=== PATIENT | male | born 1960 | race Caucasian/White ===

== ENCOUNTER 2018-04-19 13:37 | Day surgery (SDC) | payer OTHER ==
[~2018-04-19] VITALS: Ht 190.5 cm; Wt 134.1 kg
[~2018-04-19 13:37] MED LIST: ASPI-999 PO; LEVO500T69 PO; MECL-106 PO; METO-387 PO; ONDA4TAB8 SL; PANT40TA2 PO; PANT40TA3 PO; PNT40TEC PO; PROM25TA14 PO
[2018-04-19] MEDS ORDERED: PANT40TA3 (13:50)
[2018-04-19] MEDS ORDERED: HYOSCYAMINE 0.125 MG (LEVSIN) TAB SL ONE (14:00)
[2018-04-19] MEDS ORDERED: GLUCAGON EMERGENCY 1 MG/KIT IV ONE (14:00)
[2018-04-19] MEDS ORDERED: ONDANSETRON 4 MG/2 ML (SDV) Z0FRAN IVP ONE (14:00)
--- OUTSIDE RECORDS SUMMARY | 2018-04-19 14:39 | XMS REPORT | Continuity of Care Document ---
Author Author [facility] Address Unknown Phone Unavailable Allergies Active Description Code Type Severity Reaction Onset Reported/Identified Relationship to Patient Clinical Status Yes NO KNOWN DRUG ALLERGIES UNKNOWN NO KNOWN DRUG ALLERG Yes No Known Drug Allergies [id number] Drug Allergy Unknown N/A 02/10/2010 Yes No Known Drug Allergies [id number] Drug Allergy Unknown N/A 04/07/2018 Medications Medication Packaging Start Date Stop Date Route Dosage Sig FAMOTIDINE VIAL INJ 20 MG/2CC (PEPCID VIAL) MG 12/14/2017 12/14/2017 ONCE&1913 ONDANSETRON VIAL INJ 4 MG/2CC (ZOFRAN 2CC VIAL) MG 12/14/2017 12/14/2017 ONCE&1913 LACTATED RINGERS 1000CC IV BAG INJ ml 12/14/2017 12/14/2017 ONCE&1913 PANTOPAZOLE VIAL INJ 40 MG (PROTONIX IV) MG 12/14/2017 12/14/2017 ONCE&1913 NORMAL SALINE 1000CC IV BAG INJ 0.9 % (NS 1000CC IV BAG) ml 12/14/2017 12/14/2017 ONCE&2055 INSULIN REGULAR HUMAN INJ 100 UNITS/CC (HUMULIN R / NOVOLIN R INSULIN) UNITS 12/14/2017 12/14/2017 ONCE&2101 POTASSIUM CHLORIDE TAB 20 MEQ (K-DUR) MEQ 12/14/2017 12/14/2017 ONCE&2118 NORMAL SALINE 1000CC IV BAG INJ 0.9 % (NS 1000CC IV BAG) ml 12/14/2017 12/14/2017 ONCE&2159 Problems Date Dx Coded Attending Type Code Diagnosis Diagnosed By 12/22/2009 Ot 530.10 ESOPHAGITIS NOS 12/22/2009 Ot 530.81 ESOPHAGEAL REFLUX 02/15/2010 Ot 603.9 03/27/2011 Ot 305.1 TOBACCO USE DISORDER 03/27/2011 Ot 397.0 TRICUSPID VALVE DISEASE 03/27/2011 Ot 424.0 MITRAL VALVE DISORDER 03/27/2011 Ot 426.4 RT BUNDLE BRANCH BLOCK 03/27/2011 Ot 429.3 CARDIOMEGALY 03/27/2011 Ot 780.4 DIZZINESS AND GIDDINESS 03/27/2011 Ot 780.57 UNSPECIFIED SLEEP APNEA 03/27/2011 Ot 780.79 OTH MALAISE FATIGUE 03/27/2011 Ot 786.09 RESPIRATORY ABNORM NEC 03/27/2011 Ot V15.81 HX OF PAST NONCOMPLIANCE 03/27/2011 Ot V44.2 ILEOSTOMY STATUS 03/27/2011 Ot V58.66 LONG-TERM ( CURRENT) USE OF ASPIRIN 07/30/2014 Ot 603.9 07/30/2014 Ot 603.9 07/30/2014 Ot V72.63 07/30/2014 Ot V74.8 07/30/2014 Ot 780.79 07/30/2014 Ot 786.2 07/30/2014 Ot 780.79 07/30/2014 Ot 786.09 08/18/2014 YUMI LARSON, CHAYA Pulido Ot 600.00 08/18/2014 YUMI LARSON, CHAYA Pulido Ot 607.84 08/26/2014 Ot 603.9 08/26/2014 Ot 603.9 08/26/2014 Ot V72.63 08/26/2014 Ot V74.8 08/26/2014 Ot 780.79 08/26/2014 Ot 786.2 08/26/2014 Ot 780.79 08/26/2014 Ot 786.09 08/26/2014 YUMI LARSON, CHAYA Pulido Ot 600.00 08/26/2014 YUMI LARSON, CHAYA Pulido Ot 607.84 09/29/2014 DEVYN LEMUS L 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 Ot 305.1 09/29/2014 BAIMADEVYN L 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 Ot 426.4 09/29/2014 BAIMA DEVYN L 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 Ot 780.57 09/29/2014 DEVYN LEMUS L 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 Ot 785.1 10/07/2014 TALYA LARSON, KRISTAL Chavez Ot 785.1 10/07/2014 TALYA LARSON, KRISTAL Chavez Ot 785.2 10/07/2014 KRISTAL BABIN MD Ot 786.50 12/04/2014 KELSIE DILL MD Ot 892.0 OPEN WOUND OF FOOT 12/04/2014 KELSIE DILL MD Ot E000.8 OTHER EXTERNAL CAUSE STATUS 12/04/2014 FUENTES LARSON, KELSIE Enamorado Ot E849.0 ACCIDENT IN HOME 12/04/2014 FUENTES LARSON, KELSIE Enamorado Ot E920.8 ACC-CUTTING INSTRUM NEC 12/04/2014 FUENTES LARSON, KELSIE Enamorado Ot V06.1 [id number], COMBINED [ 08/04/2015 Ot 780.79 08/04/2015 Ot 786.2 08/04/2015 Ot 780.79 08/04/2015 Ot 786.09 08/04/2015 YUMI LARSON, CHAYA Pulido Ot 600.00 08/04/2015 YUMI LARSON, CHAYA Pulido Ot 607.84 08/04/2015 TALYA LARSON, KRISTAL L Ot 785.1 08/04/2015 TALYA LARSON, KRISTAL L Ot 785.2 08/04/2015 TALYA LARSON, KRISTAL L Ot 786.50 08/04/2015 BAIMA, DEVYN L 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 Ot 305.1 08/04/2015 BAIMA DEVYN L 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 Ot 426.4 08/04/2015 BAIMA DEVYN L 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 Ot 780.57 08/04/2015 BAIINA DEVYN L 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 Ot 785.1 08/18/2015 CHAYA EASON MD Ot N40.0 08/18/2015 CHAYA EASON MD Ot N52.9 11/08/2015 Ot 780.79 11/08/2015 Ot 786.2 11/08/2015 Ot 780.79 11/08/2015 Ot 786.09 11/08/2015 YUMI LARSON, CHAYA Pulido Ot 600.00 11/08/2015 CHAYA EASON MD Ot 607.84 11/08/2015 TALYA LARSON, KRISTAL L Ot 785.1 11/08/2015 TALYA LARSON, KRISTAL L Ot 785.2 11/08/2015 TALYA LARSON, KRISTAL L Ot 786.50 11/08/2015 MARIAH DEVYN L 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 Ot 305.1 11/08/2015 MARIAH DEVYN L 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 Ot 426.4 11/08/2015 BAIMA, DEVYN L 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 Ot 780.57 11/08/2015 MARIAH DEVYN L 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 Ot 785.1 11/08/2015 CHAYA EASON MD Ot N40.0 11/08/2015 YUMI LARSON, CHAYA Tess Ot N52.9 11/23/2015 BAIMA, DEVYN L 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 Ot G47.33 11/23/2015 BAIMA, DEVYN L 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 Ot I45.19 11/23/2015 BAIMA, DEVYN L 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 Ot R00.2 11/23/2015 BAIMA, DEVYN L 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 Ot R06.09 11/23/2015 BAIMA, DEVYN L 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 Ot R07.9 11/23/2015 BAIMA, DEVYN L 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 Ot Z72.0 11/24/2015 Ot 780.79 11/24/2015 Ot 786.2 11/24/2015 Ot 780.79 11/24/2015 Ot 786.09 11/24/2015 YUMI LARSON, CHAYA Tess Ot 600.00 11/24/2015 YUMI LARSON, CHAYA Tess Ot 607.84 11/24/2015 TALYA LARSON, KRISTAL L Ot 785.1 11/24/2015 TALYA LARSON, KRISTAL L Ot 785.2 11/24/2015 TALYA LARSON, KRISTAL L Ot 786.50 11/24/2015 BAIMA, DEVYN L 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 Ot 305.1 11/24/2015 BAIMA, DEVYN L 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 Ot 426.4 11/24/2015 BAIMA, DEVYN L 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 Ot 780.57 11/24/2015 BAIMA, DEVYN L 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 Ot 785.1 11/24/2015 YUMI LARSON, CHAYA Pulido Ot N40.0 11/24/2015 YUMI LARSON, CHAYA A Ot N52.9 11/24/2015 BAIMA, DEVYN L 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 Ot G47.33 11/24/2015 BAIMA, DEVYN L 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 Ot I45.19 11/24/2015 BAIMA, DEVYN L 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 Ot R00.2 11/24/2015 BAIMA, DEVYN L 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 Ot R06.09 11/24/2015 BAIMA, DEVYN L 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 Ot R07.9 11/24/2015 BAIMA, DEVYN L 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 Ot Z72.0 11/25/2015 BAIMA, DEVYN L 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 Ot G47.33 11/25/2015 BAIMA, DEVYN L 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 Ot I45.19 11/25/2015 BAIMA, DEVYN L 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 Ot R00.2 11/25/2015 BAIMA, DEVYN L 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 Ot R06.09 11/25/2015 BAIMA, DEVYN L 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 Ot R07.9 11/25/2015 BAIMA, DEVYN L 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 Ot Z72.0 12/07/2015 BAIMA, DEVYN L 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 Ot G47.33 OBSTRUCTIVE SLEEP APNEA (ADULT) (PEDIATR 12/07/2015 BAIMA, DEVYN L 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 Ot I45.19 OTHER RIGHT BUNDLE-BRANCH BLOCK 12/07/2015 BAIMA, DEVYN L 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 Ot R00.2 PALPITATIONS 12/07/2015 BAIMA, DEVYN L 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 Ot R06.09 OTHER FORMS OF DYSPNEA 12/07/2015 BAIMA, DEVYN L 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 Ot R07.9 CHEST PAIN, UNSPECIFIED 12/07/2015 BAIMA, DEVYN L 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 Ot Z72.0 TOBACCO USE 12/30/2015 Ot 780.79 OTH MALAISE FATIGUE 12/30/2015 Ot 786.2 COUGH 12/30/2015 Ot 780.79 OTH MALAISE FATIGUE 12/30/2015 Ot 786.09 RESPIRATORY ABNORM NEC 12/30/2015 YUMI LARSON, CHAYA Pulido Ot 600.00 HYPERTROPHY (BENIGN) OF PROSTATE W/O URI 12/30/2015 CHAYA EASON MD Ot 607.84 IMPOTENCE, ORGANIC ORIGN 12/30/2015 TALYA LARSON, KRISTAL Chavez Ot 785.1 PALPITATIONS 12/30/2015 TALYA LARSON, KRISTAL Chavez Ot 785.2 CARDIAC MURMURS NEC 12/30/2015 TALYA LARSON, KRISTAL Chavez Ot 786.50 CHEST PAIN NOS 12/30/2015 MARIAH, DEVYN L 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 Ot 305.1 TOBACCO USE DISORDER 12/30/2015 BAIMA, DEVYN L 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 Ot 426.4 RT BUNDLE BRANCH BLOCK 12/30/2015 ORALIAMA, DEVYN L 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 Ot 780.57 UNSPECIFIED SLEEP APNEA 12/30/2015 BAIMA, DEVYN L 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 Ot 785.1 PALPITATIONS 12/30/2015 CHAYA EASON MD Ot N40.0 ENLARGED PROSTATE WITHOUT LOWER URINARY 12/30/2015 CHAYA EASON MD Ot N52.9 MALE ERECTILE DYSFUNCTION, UNSPECIFIED 12/30/2015 BAIMA, DEVYN L 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 Ot G47.33 OBSTRUCTIVE SLEEP APNEA (ADULT) (PEDIATR 12/30/2015 BAIMA, DEVYN L 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 Ot I45.19 OTHER RIGHT BUNDLE-BRANCH BLOCK 12/30/2015 BAIMA, DEVYN L 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 Ot R00.2 PALPITATIONS 12/30/2015 BAIMA, DEVYN L 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 Ot R06.09 OTHER FORMS OF DYSPNEA 12/30/2015 BAIMA, DEVYN L 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 Ot R07.9 CHEST PAIN, UNSPECIFIED 12/30/2015 BAIMA, DEVYN L 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 Ot Z72.0 TOBACCO USE 12/30/2015 BAIMA, DEVYN L 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 Ot G47.33 OBSTRUCTIVE SLEEP APNEA (ADULT) (PEDIATR 12/30/2015 BAIMA, DEVYN L 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 Ot I45.19 OTHER RIGHT BUNDLE-BRANCH BLOCK 12/30/2015 BAIMA, DEVYN L 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 Ot R00.2 PALPITATIONS 12/30/2015 BAIMA, DEVYN L 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 Ot R06.09 OTHER FORMS OF DYSPNEA 12/30/2015 BAIMA, DEVYN L 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 Ot R07.9 CHEST PAIN, UNSPECIFIED 12/30/2015 BAIMA, DEVYN L 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 Ot Z72.0 TOBACCO USE 12/30/2015 MYRON LARSON, HALEIGH T Ot F17.210 NICOTINE DEPENDENCE, CIGARETTES, UNCOMPL 12/30/2015 HALEIGH SANCHES MD Ot R11.2 NAUSEA WITH VOMITING, UNSPECIFIED 12/30/2015 HALEIGH SANCHES MD T Ot R42 DIZZINESS AND GIDDINESS 12/30/2015 HALEIGH SANCHES MD T Ot R74.8 ABNORMAL LEVELS OF OTHER SERUM ENZYMES 12/30/2015 HALEIGH SANCHES MD Ot F17.210 NICOTINE DEPENDENCE, CIGARETTES, UNCOMPL 12/30/2015 HALEIGH SANCHES MD T Ot R11.2 NAUSEA WITH VOMITING, UNSPECIFIED 12/30/2015 HALEIGH SANCHES MD T Ot R42 DIZZINESS AND GIDDINESS 12/30/2015 HALEIGH SANCHES MD T Ot R74.8 ABNORMAL LEVELS OF OTHER SERUM ENZYMES 01/06/2016 KELSIE DILL MD Ot R11.0 NAUSEA 01/06/2016 FUENTES LARSON, KELSIE Enamorado Ot R42 DIZZINESS AND GIDDINESS 01/10/2016 KELSIE DILL MD Ot R11.0 NAUSEA 01/10/2016 KELSIE DILL MD Ot R42 DIZZINESS AND GIDDINESS 01/26/2016 MYRON LARSON, HALEIGH Vicente Ot F17.210 NICOTINE DEPENDENCE, CIGARETTES, UNCOMPL 01/26/2016 HALEIGH SANCHES MD Ot R11.2 NAUSEA WITH VOMITING, UNSPECIFIED 01/26/2016 HALEIGH SANCHES MD Ot R42 DIZZINESS AND GIDDINESS 01/26/2016 MYRON LARSON, HALEIGH Vicente Ot R74.8 ABNORMAL LEVELS OF OTHER SERUM ENZYMES 01/27/2016 KELSIE DILL MD Ot R11.0 NAUSEA 01/27/2016 KELSIE DILL MD, Ot R42 DIZZINESS AND GIDDINESS 02/01/2016 MICHEL GALEANA SLAB WORKER Ot G47.33 OBSTRUCTIVE SLEEP APNEA (ADULT) (PEDIATR 02/07/2016 MICHEL GALEANA SLAB WORKER Ot G47.33 OBSTRUCTIVE SLEEP APNEA (ADULT) (PEDIATR 02/07/2016 MICHEL GALEANA SLAB WORKER Ot G47.33 OBSTRUCTIVE SLEEP APNEA (ADULT) (PEDIATR 10/01/2016 AZUL LARSON FACC, JAVIER FACP CCDS Ot G47.33 OBSTRUCTIVE SLEEP APNEA (ADULT) (PEDIATR 10/01/2016 AZUL LARSON FACC, JAVIER FACP CCDS Ot R01.2 OTHER CARDIAC SOUNDS 10/01/2016 AZUL LARSON FACC, JAVIER FACP CCDS Ot R06.09 OTHER FORMS OF DYSPNEA 10/01/2016 AZUL LARSON FACC, ALI FACP CCDS Ot Z72.0 TOBACCO USE 10/10/2016 MICHEL GALEANA SLAB WORKER Ot R50.9 FEVER, UNSPECIFIED 10/10/2016 MICHEL GALEANA SLAB WORKER Ot Z72.0 TOBACCO USE 10/17/2016 AZUL LARSON FACC, JVAIER FACP CCDS Ot G47.33 OBSTRUCTIVE SLEEP APNEA (ADULT) (PEDIATR 10/17/2016 AZUL LARSON FACC, ALI FACP CCDS Ot R01.2 OTHER CARDIAC SOUNDS 10/17/2016 AZUL LARSON FACC, ALI FACP CCDS Ot R06.09 OTHER FORMS OF DYSPNEA 10/17/2016 AZUL LARSON FAC, JAVIER SANTAMARIAP CCDS Ot Z72.0 TOBACCO USE 10/24/2016 MICHLE GALEANA SLAB WORKER Ot R50.9 FEVER, UNSPECIFIED 10/24/2016 MICHEL GALEANA SLAB WORKER Ot Z72.0 TOBACCO USE 01/19/2017 Vida Christopher 729.5 PAIN IN LIMB 01/19/2017 Vida Christopher M79.672 PAIN IN LEFT FOOT 11/26/2017 MICHEL GALEANA APRN Ot J30.9 ALLERGIC RHINITIS, UNSPECIFIED 11/26/2017 MICHEL GALEANA APRN Ot R05 COUGH 11/26/2017 MICHEL GALEANA SLAB WORKER Ot R06.09 OTHER FORMS OF DYSPNEA 12/12/2017 KRISTAL BABIN V70.0 ROUTINE GENERAL MEDICAL EXAMINATION AT A HEALTH CARE FACILITY 12/12/2017 KRISTAL BBAIN Z00.01 ENCOUNTER FOR GENERAL ADULT MEDICAL EXAMINATION WITH ABNORMAL FINDINGS 12/12/2017 KRISTAL BABIN 250.00 DIABETES MELLITUS WITHOUT MENTION OF COMPLICATION, TYPE II OR UNSPECIFIED TYPE , NOT STATED UNCONTROLLED 12/12/2017 KRISTAL BABIN E11.9 TYPE 2 DIABETES MELLITUS WITHOUT COMPLICATIONS 12/12/2017 KRISTAL BABIN V70.0 ROUTINE GENERAL MEDICAL EXAMINATION AT A HEALTH CARE FACILITY 12/12/2017 KRISTAL BABIN Z00.01 ENCOUNTER FOR GENERAL ADULT MEDICAL EXAMINATION WITH ABNORMAL FINDINGS 12/12/2017 KRISTAL BABIN 250.00 DIABETES MELLITUS WITHOUT MENTION OF COMPLICATION, TYPE II OR UNSPECIFIED TYPE , NOT STATED UNCONTROLLED 12/12/2017 KRISTAL BABIN E11.9 TYPE 2 DIABETES MELLITUS WITHOUT COMPLICATIONS 12/12/2017 KRISTAL BABIN V70.0 ROUTINE GENERAL MEDICAL EXAMINATION AT A HEALTH CARE FACILITY 12/12/2017 KRISTAL BABIN Z00.01 ENCOUNTER FOR GENERAL ADULT MEDICAL EXAMINATION WITH ABNORMAL FINDINGS 12/14/2017 Van Richard 276.51 12/14/2017 Van Richard 530.81 ESOPHAGEAL REFLUX 12/14/2017 Van Richard 584.9 ACUTE KIDNEY FAILURE, UNSPECIFIED 12/14/2017 Van Richard 787.01 NAUSEA WITH VOMITING 12/14/2017 Van Richard 794.30 NONSPECIFIC ABNORMAL FUNCTION STUDY, CARDIOVASCULAR, UNSPECIFIED 12/14/2017 Van Richard A E86.0 DEHYDRATION 12/14/2017 Van Richard K21.9 GASTRO-ESOPHAGEAL REFLUX DISEASE WITHOUT ESOPHAGITIS 12/14/2017 Van Richard N17.9 ACUTE KIDNEY FAILURE, UNSPECIFIED 12/14/2017 Van Richard R11.2 NAUSEA WITH VOMITING, UNSPECIFIED 12/14/2017 Van Richard R94.39 ABNORMAL RESULT OF OTHER CARDIOVASCULAR FUNCTION STUDY 12/17/2017 MARIA M RAMEY MD Ot E05.90 THYROTOXICOSIS, UNSP WITHOUT THYROTOXIC 12/17/2017 MARIA M RAMEY MD Ot E11.9 TYPE 2 DIABETES MELLITUS WITHOUT COMPLIC 12/17/2017 MARIA M RAMEY MD, Ot E55.9 VITAMIN D DEFICIENCY, UNSPECIFIED 12/17/2017 AMRIA M RAMEY MD, Ot E66.9 OBESITY, UNSPECIFIED 12/17/2017 MARIA M RAMEY MD Ot E86.0 DEHYDRATION 12/17/2017 MARIA M RAMEY MD Ot E87.2 ACIDOSIS 12/17/2017 MARIA M RAMEY MD Ot F17.210 NICOTINE DEPENDENCE, CIGARETTES, UNCOMPL 12/17/2017 MARIA M RAMEY MD Ot F17.290 NICOTINE DEPENDENCE, OTHER TOBACCO PRODU 12/17/2017 MARIA M RAMEY MD Ot G47.30 SLEEP APNEA, UNSPECIFIED 12/17/2017 MARIA M RAMEY MD Ot I25.10 ATHSCL HEART DISEASE OF [place] CORONARY 12/17/2017 MARIA M RAMEY MD Ot I45.10 UNSPECIFIED RIGHT BUNDLE-BRANCH BLOCK 12/17/2017 MARIA M RAMEY MD Ot I65.23 OCCLUSION AND STENOSIS OF BILATERAL ARCHER 12/17/2017 MARIA M RAMEY MD, Ot K21.9 GASTRO-ESOPHAGEAL REFLUX DISEASE WITHOUT 12/17/2017 MARIA M RAMEY MD Ot K50.90 CROHN'S DISEASE, UNSPECIFIED, WITHOUT CO 12/17/2017 MARIA M RAMEY MD, Ot K52.9 NONINFECTIVE GASTROENTERITIS AND COLITIS 12/17/2017 MARIA M RAMEY MD, Ot N17.9 ACUTE KIDNEY FAILURE, UNSPECIFIED 12/17/2017 MARIA M RAMEY MD, Ot R01.1 CARDIAC MURMUR, UNSPECIFIED 12/17/2017 MARIA M RAMEY MD Ot Z68.35 BODY MASS INDEX (BMI) 35.0-35.9, ADULT 12/20/2017 MARIA M RAMEY MD Ot E05.90 THYROTOXICOSIS, UNSP WITHOUT THYROTOXIC 12/20/2017 MARIA M RAMEY MD Ot E11.9 TYPE 2 DIABETES MELLITUS WITHOUT COMPLIC 12/20/2017 MARIA M RAMEY MD Ot E55.9 VITAMIN D DEFICIENCY, UNSPECIFIED 12/20/2017 MARIA M RAMEY MD Ot E66.9 OBESITY, UNSPECIFIED 12/20/2017 MARIA M RAMEY MD Ot E86.0 DEHYDRATION 12/20/2017 MARIA M RAMEY MD Ot E87.2 ACIDOSIS 12/20/2017 MARIA M RAMEY MD Ot F17.210 NICOTINE DEPENDENCE, CIGARETTES, UNCOMPL 12/20/2017 MARIA M RAMEY MD Ot F17.290 NICOTINE DEPENDENCE, OTHER TOBACCO PRODU 12/20/2017 MARIA M RAMEY MD Ot G47.30 SLEEP APNEA, UNSPECIFIED 12/20/2017 MARIA M RAMEY MD Ot I25.10 ATHSCL HEART DISEASE OF [place] CORONARY 12/20/2017 MARIA M RAMEY MD Ot I45.10 UNSPECIFIED RIGHT BUNDLE-BRANCH BLOCK 12/20/2017 MARIA M RAMEY MD Ot I65.23 OCCLUSION AND STENOSIS OF BILATERAL ARCH[place] 12/20/2017 MARIA M RAMEY MD Ot K21.9 GASTRO-ESOPHAGEAL REFLUX DISEASE WITHOUT 12/20/2017 MARIA M RAMEY MD Ot K50.90 CROHN'S DISEASE, UNSPECIFIED, WITHOUT CO 12/20/2017 MARIA M RAMEY MD Ot K52.9 NONINFECTIVE GASTROENTERITIS AND COLITIS 12/20/2017 MARIA M RAMEY MD Ot N17.9 ACUTE KIDNEY FAILURE, UNSPECIFIED 12/20/2017 MARIA M RAMEY MD Ot R01.1 CARDIAC MURMUR, UNSPECIFIED 12/20/2017 MARIA M RAMEY MD Ot Z68.35 BODY MASS INDEX (BMI) 35.0-35.9, ADULT 12/20/2017 SANDNESS MD, MARIA M M Ot E05.90 THYROTOXICOSIS, UNSP WITHOUT THYROTOXIC 12/20/2017 MARIA M RAMYE MD Ot E11.9 TYPE 2 DIABETES MELLITUS WITHOUT COMPLIC 12/20/2017 MARIA M RAMEY MD Ot E55.9 VITAMIN D DEFICIENCY, UNSPECIFIED 12/20/2017 MARIA M RAMEY MD Ot E66.9 OBESITY, UNSPECIFIED 12/20/2017 MARIA M RAMEY MD Ot E86.0 DEHYDRATION 12/20/2017 MARIA M RAMEY MD Ot E87.2 ACIDOSIS 12/20/2017 MARIA M RAMEY MD Ot F17.210 NICOTINE DEPENDENCE, CIGARETTES, UNCOMPL 12/20/2017 MARIA M RAMEY MD Ot F17.290 NICOTINE DEPENDENCE, OTHER TOBACCO PRODU 12/20/2017 MARIA M RAMEY MD Ot G47.30 SLEEP APNEA, UNSPECIFIED 12/20/2017 MARIA M RAMEY MD Ot I25.10 ATHSCL HEART DISEASE OF [place] CORONARY 12/20/2017 MARIA M RAMEY MD Ot I45.10 UNSPECIFIED RIGHT BUNDLE-BRANCH BLOCK 12/20/2017 MARIA M RAMEY MD Ot I65.23 OCCLUSION AND STENOSIS OF BILATERAL ARCH[place] 12/20/2017 MARIA M RAMEY MD Ot K21.9 GASTRO-ESOPHAGEAL REFLUX DISEASE WITHOUT 12/20/2017 MARIA M RAMEY MD Ot K50.90 CROHN'S DISEASE, UNSPECIFIED, WITHOUT CO 12/20/2017 MARIA M RAMEY MD Ot K52.9 NONINFECTIVE GASTROENTERITIS AND COLITIS 12/20/2017 MARIA M RAMEY MD Ot N17.9 ACUTE KIDNEY FAILURE, UNSPECIFIED 12/20/2017 MARIA M RAMEY MD Ot R01.1 CARDIAC MURMUR, UNSPECIFIED 12/20/2017 MARIA M RAMEY MD Ot Z68.35 BODY MASS INDEX (BMI) 35.0-35.9, ADULT 12/23/2017 MARIA M RAMEY MD Ot E05.90 THYROTOXICOSIS, UNSP WITHOUT THYROTOXIC 12/23/2017 MARIA M RAMEY MD Ot E11.9 TYPE 2 DIABETES MELLITUS WITHOUT COMPLIC 12/23/2017 MARIA M RAMEY MD Ot E55.9 VITAMIN D DEFICIENCY, UNSPECIFIED 12/23/2017 MARIA M RAMEY MD Ot E66.9 OBESITY, UNSPECIFIED 12/23/2017 MARIA M RAMEY MD Ot E86.0 DEHYDRATION 12/23/2017 MARIA M RAMEY MD Ot E87.2 ACIDOSIS 12/23/2017 MARIA M RAMEY MD Ot F17.210 NICOTINE DEPENDENCE, CIGARETTES, UNCOMPL 12/23/2017 MARIA M RAMEY MD, Ot F17.290 NICOTINE DEPENDENCE, OTHER TOBACCO PRODU 12/23/2017 MARIA M RAMEY MD, Ot G47.30 SLEEP APNEA, UNSPECIFIED 12/23/2017 MARIA M RAMEY MD, Ot I25.10 ATHSCL HEART DISEASE OF [place] CORONARY 12/23/2017 MARIA M RAMEY MD Ot I45.10 UNSPECIFIED RIGHT BUNDLE-BRANCH BLOCK 12/23/2017 MARIA M RAMEY MD Ot I65.23 OCCLUSION AND STENOSIS OF BILATERAL [place]CH[place] 12/23/2017 MARIA M RAMEY MD Ot K21.9 GASTRO-ESOPHAGEAL REFLUX DISEASE WITHOUT 12/23/2017 MARIA M RAMEY MD Ot K50.90 CROHN'S DISEASE, UNSPECIFIED, WITHOUT CO 12/23/2017 MARIA M RAMEY MD, Ot K52.9 NONINFECTIVE GASTROENTERITIS AND COLITIS 12/23/2017 MARIA M RAMEY MD, Ot N17.9 ACUTE KIDNEY FAILURE, UNSPECIFIED 12/23/2017 MARIA M RAMEY MD Ot R01.1 CARDIAC MURMUR, UNSPECIFIED 12/23/2017 MARIA M RAMEY MD Ot Z68.35 BODY MASS INDEX (BMI) 35.0-35.9, ADULT 12/24/2017 KRISTAL BABIN 584.9 ACUTE KIDNEY FAILURE, UNSPECIFIED 12/24/2017 KRISTAL BABIN N17.9 ACUTE KIDNEY FAILURE, UNSPECIFIED 12/24/2017 KRISTAL BABIN 584.9 ACUTE KIDNEY FAILURE, UNSPECIFIED 12/24/2017 KRISTAL BABIN N17.9 ACUTE KIDNEY FAILURE, UNSPECIFIED 12/24/2017 KRISTAL BABIN 584.9 ACUTE KIDNEY FAILURE, UNSPECIFIED 12/24/2017 KRISTAL BABIN N17.9 ACUTE KIDNEY FAILURE, UNSPECIFIED 12/25/2017 MARIA M RAMEY MD Ot E05.90 THYROTOXICOSIS, UNSP WITHOUT THYROTOXIC 12/25/2017 MARIA M RAMEY MD Ot E11.9 TYPE 2 DIABETES MELLITUS WITHOUT COMPLIC 12/25/2017 MARIA M RAMEY MD Ot E55.9 VITAMIN D DEFICIENCY, UNSPECIFIED 12/25/2017 MARIA M RAMEY MD Ot E66.9 OBESITY, UNSPECIFIED 12/25/2017 MARIA M RAMEY MD Ot E86.0 DEHYDRATION 12/25/2017 MARIA M RAMEY MD Ot E87.2 ACIDOSIS 12/25/2017 MARIA M RAMEY MD Ot F17.210 NICOTINE DEPENDENCE, CIGARETTES, UNCOMPL 12/25/2017 MARIA M RAMEY MD Ot F17.290 NICOTINE DEPENDENCE, OTHER TOBACCO PRODU 12/25/2017 MARIA M RAMEY MD Ot G47.30 SLEEP APNEA, UNSPECIFIED 12/25/2017 MARIA M RAMEY MD Ot I25.10 ATHSCL HEART DISEASE OF [place] CORONARY 12/25/2017 MARIA M RAMEY MD Ot I45.10 UNSPECIFIED RIGHT BUNDLE-BRANCH BLOCK 12/25/2017 MARIA M RAMEY MD Ot I65.23 OCCLUSION AND STENOSIS OF BILATERAL [place] 12/25/2017 MARIA M RAMEY MD Ot K21.9 GASTRO-ESOPHAGEAL REFLUX DISEASE WITHOUT 12/25/2017 MARIA M RAMEY MD Ot K50.90 CROHN'S DISEASE, UNSPECIFIED, WITHOUT CO 12/25/2017 MARIA M RAMEY MD Ot K52.9 NONINFECTIVE GASTROENTERITIS AND COLITIS 12/25/2017 MARIA M RAMEY MD Ot N17.9 ACUTE KIDNEY FAILURE, UNSPECIFIED 12/25/2017 MARIA M RAMEY MD Ot R01.1 CARDIAC MURMUR, UNSPECIFIED 12/25/2017 MARIA M RAMEY MD Ot Z68.35 BODY MASS INDEX (BMI) 35.0-35.9, ADULT 04/07/2018 CHAYA EASON MD Ot 600.00 HYPERTROPHY (BENIGN) OF PROSTATE W/O URI 04/07/2018 CHAYA EASON MD Ot 607.84 IMPOTENCE, ORGANIC ORIGN 04/07/2018 TALYA LARSON, KRISTAL L Ot 785.1 PALPITATIONS 04/07/2018 TALYA LARSON, KRISTAL L Ot 785.2 CARDIAC MURMURS NEC 04/07/2018 TALYA LARSON, KRISTAL L Ot 786.50 CHEST PAIN NOS 04/07/2018 BAIMA, DEVYN L 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 Ot 305.1 TOBACCO USE DISORDER 04/07/2018 BAIMA, DEVYN L 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 Ot 426.4 RT BUNDLE BRANCH BLOCK 04/07/2018 BAIMA, DEVYN L 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 Ot 780.57 UNSPECIFIED SLEEP APNEA 04/07/2018 BAIMA, DEVYN L 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 Ot 785.1 PALPITATIONS 04/07/2018 YUMI LARSON, CHAYA Pulido Ot N40.0 ENLARGED PROSTATE WITHOUT LOWER URINARY 04/07/2018 YUMI LARSON, CHAYA A Ot N52.9 MALE ERECTILE DYSFUNCTION, UNSPECIFIED 04/07/2018 BAIMA, DEVYN L 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 Ot G47.33 OBSTRUCTIVE SLEEP APNEA (ADULT) (PEDIATR 04/07/2018 BAIMA, DEVYN L 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 Ot I45.19 OTHER RIGHT BUNDLE-BRANCH BLOCK 04/07/2018 BAIMA, DEVYN L 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 Ot R00.2 PALPITATIONS 04/07/2018 BAIMA, DEVYN L 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 Ot R06.09 OTHER FORMS OF DYSPNEA 04/07/2018 BAIMA, DEVYN L 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 Ot R07.9 CHEST PAIN, UNSPECIFIED 04/07/2018 BAIMA, DEVYN L 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 Ot Z72.0 TOBACCO USE 04/07/2018 BAIMA, DEVYN L 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 Ot G47.33 OBSTRUCTIVE SLEEP APNEA (ADULT) (PEDIATR 04/07/2018 BAIMA, DEVYN L 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 Ot I45.19 OTHER RIGHT BUNDLE-BRANCH BLOCK 04/07/2018 BAIMA, DEVYN L 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 Ot R00.2 PALPITATIONS 04/07/2018 BAIMA, DEVYN L 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 Ot R06.09 OTHER FORMS OF DYSPNEA 04/07/2018 BAIMA, DEVYN L 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 Ot R07.9 CHEST PAIN, UNSPECIFIED 04/07/2018 BAIMA, DEVYN L 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 Ot Z72.0 TOBACCO USE 04/07/2018 AZUL LARSON FACC, ALI FACP CCDS Ot G47.33 OBSTRUCTIVE SLEEP APNEA (ADULT) (PEDIATR 04/07/2018 AZUL LARSON FACC, ALI FACP CCDS Ot R01.2 OTHER CARDIAC SOUNDS 04/07/2018 AZUL LARSON [facility] CCDS Ot R06.09 OTHER FORMS OF DYSPNEA 04/07/2018 AZUL LARSON FAC, [facility] CCDS Ot Z72.0 TOBACCO USE 04/07/2018 MICHEL GALEANA Axel [employer] WORKER Ot R50.9 FEVER, UNSPECIFIED 04/07/2018 LISSETTMAGALIS OLSONINE E SL[employer] WORKER Ot Z72.0 TOBACCO USE 04/07/2018 MICHEL GALEANA [employer] WORKER Ot J30.9 ALLERGIC RHINITIS, UNSPECIFIED 04/07/2018 MAGALIS GALEANAINE E [employer] WORKER Ot R05 COUGH 04/07/2018 MICHEL GALEANA [employer] WORKER Ot R06.09 OTHER FORMS OF DYSPNEA Procedures There is no data. Results Test Result Range Lipid Panel - 12/06/16 10:45 C/HDL 2.6 3.7-6.7 Cholesterol 129 mg/dL 100-240 HDL 50 mg/dL 30-85 LDL-Calculated 47 mg/dL 0-100 Trig 158 mg/dL 35-160 VLDL 32 mg/dL 0-42 Rheumatiod Factor, Quantitative - 02/11/17 19:20 Rheumatoid Factor, Quantitative <15 IU/ml 0-30 BMP - 06/13/17 13:30 Anion Gap 17 6-14 BUN 17 mg/dL 5-25 Calcium 9.0 mg/dL 8.3-10.4 Chloride 106 mmol/L 95-114 CO2 17 mEq/L 22-33 Creat 0.96 mg/dL 0.50-1.50 eGFR 81 mL/min/1.73m2 >59 Glucose 228 mg/dL 70-110 Osmo 289 280-295 Potassium 4.0 mmol/L 3.5-5.3 Sodium 136 mmol/L 134-148 Hemoglobin A1C - 12/12/17 14:05 % A1C 6.30 % 5.40-6.60 AvGlu 147 mg/dL 70-110 Microalbumin - 12/12/17 14:59 Microalb 6.0 mg/L 0.0-20.0 Sed Rate - 12/14/17 19:20 Sed Rate 11 mm/hr 0-9 EKG - 12/14/17 19:51 EKG Complete Cardiac Panel - 12/14/17 20:20 CK 291 U/L 26-174 CK-MB 9.3 ng/ml 0.0-9.2 Myoglobin 610.7 ng/ml 1.6-154.9 Troponin 1.340 Result verified by repeat analysis. ng/mL 0.000-0.400 Serum Ketone - 12/14/17 20:20 Serum Ketone Negative 0.00-0.00 Urinalysis - 12/14/17 21:22 Icotest Negative Negative Urine Casts Granular cast: 5-10/HPF Urine Crystals Amorphous material: moderate/HPF Urine Volume Urine Volume Sufficient (10mL) Urine-Appearance Slightly Cloudy Clear Urine-Bacteria Trace Urine-Bilirubin 1+ Negative Urine-Blood 1+ Negative Urine-Color Quynh Colorless-Lt. Yellow Urine-Epithelial Cells 0-5/HPF Urine-Glucose Trace Negative Urine-Ketones Negative Negative Urine-Leukocytes Negative Negative Urine-Mucus Trace Urine-Nitrite Positive Negative Urine-Other Urine Saved if Culture Needed (48hrs from time of collection) Urine-pH 5.5 5-8.5 Urine-Protein 2+ Negative Urine-RBC 1-3/HPF Urine-Specific [place] >=1.030 1.000-1.030 Urine-WBC 2-5/HPF Urobilinogen 0.2 0.2-1.0 Complete blood count (CBC) with automated white blood cell (WBC) differential - 12/14/17 23:40 Blood leukocytes automated count (number/volume) 5.9 10*3/uL 4.3-11.0 Blood erythrocytes automated count (number/volume) 5.16 10*6/uL 4.35-5.85 Venous blood hemoglobin measurement (mass/volume) 16.4 g/dL 13.3-17.7 Blood hematocrit (volume fraction) 44 % 40-54 Automated erythrocyte mean corpuscular volume 85 [foz_us] 80-99 Automated erythrocyte mean corpuscular hemoglobin (mass per erythrocyte) 32 pg 25-34 Automated erythrocyte mean corpuscular hemoglobin concentration measurement ( mass/volume) 37 g/dL 32-36 Automated erythrocyte distribution width ratio 12.9 % 10.0-14.5 Automated blood platelet count (count/volume) 208 10*3/uL 130-400 Automated blood platelet mean volume measurement 9.2 [foz_us] 7.4-10.4 Automated blood neutrophils/100 leukocytes 62 % 42-75 Automated blood lymphocytes/100 leukocytes 19 % 12-44 Blood monocytes/100 leukocytes 13 % 0-12 Automated blood eosinophils/100 leukocytes 7 % 0-10 Automated blood basophils/100 leukocytes 0 % 0-10 Blood neutrophils automated count (number/volume) 3.6 10*3 1.8-7.8 Blood lymphocytes automated count (number/volume) 1.1 10*3 1.0-4.0 Blood monocytes automated count (number/volume) 0.8 10*3 0.0-1.0 Automated eosinophil count 0.4 10*3/uL 0.0-0.3 Automated blood basophil count (count/volume) 0.0 10*3/uL 0.0-0.1 Comprehensive metabolic panel - 12/14/17 23:40 Serum or plasma sodium measurement (moles/volume) 133 mmol/L 135-145 Serum or plasma potassium measurement (moles/volume) 3.6 mmol/L 3.6-5.0 Serum or plasma chloride measurement (moles/volume) 105 mmol/L 98-107 Carbon dioxide 15 mmol/L 21-32 Serum or plasma anion gap determination (moles/volume) 13 mmol/L 5-14 Serum or plasma urea nitrogen measurement (mass/volume) 33 mg/dL 7-18 Serum or plasma creatinine measurement (mass/volume) 1.09 mg/dL 0.60-1.30 Serum or plasma urea nitrogen/creatinine mass ratio 30 NRG Serum or plasma creatinine measurement with calculation of estimated glomerular filtration rate > NRG Serum or plasma glucose measurement (mass/volume) 199 mg/dL 70-105 Serum or plasma calcium measurement (mass/volume) 9.1 mg/dL 8.5-10.1 Serum or plasma total bilirubin measurement (mass/volume) 2.2 mg/dL 0.1-1.0 Serum or plasma alkaline phosphatase measurement (enzymatic activity/volume) 85 U/L 40-136 Serum or plasma aspartate aminotransferase measurement (enzymatic activity/ volume) 43 U/L 5-34 Serum or plasma alanine aminotransferase measurement (enzymatic activity/volume ) 53 U/L 0-55 Serum or plasma protein measurement (mass/volume) 8.1 g/dL 6.4-8.2 Serum or plasma albumin measurement (mass/volume) 4.0 g/dL 3.2-4.5 Magnesium - 12/14/17 23:40 Magnesium 2.1 mg/dL 1.8-2.4 Serum or plasma creatine kinase measurement (enzymatic activity/volume) - 12/14 23:40 Serum or plasma creatine kinase measurement (enzymatic activity/volume) 378 U/L 30-200 Serum or plasma troponin i.cardiac measurement (mass/volume) - 12/14/17 23:40 Serum or plasma troponin i.cardiac measurement (mass/volume) 0.96 ng /mL <0.30 THYROID STIMULATING HORMONE - 12/14/17 23:40 THYROID STIMULATING HORMONE 0.08 u[iU]/mL 0.35-4.94 Methicillin resistant Staphylococcus aureus (MRSA) screening culture - 23:45 Methicillin resistant Staphylococcus aureus (MRSA) screening culture NEG NRG Complete blood count (CBC) with automated white blood cell (WBC) differential - 12/15/17 03:44 Blood leukocytes automated count (number/volume) 5.8 10*3/uL 4.3-11.0 Blood erythrocytes automated count (number/volume) 5.04 10*6/uL 4.35-5.85 Venous blood hemoglobin measurement (mass/volume) 16.1 g/dL 13.3-17.7 Blood hematocrit (volume fraction) 43 % 40-54 Automated erythrocyte mean corpuscular volume 86 [foz_us] 80-99 Automated erythrocyte mean corpuscular hemoglobin (mass per erythrocyte) 32 pg 25-34 Automated erythrocyte mean corpuscular hemoglobin concentration measurement ( mass/volume) 37 g/dL 32-36 Automated erythrocyte distribution width ratio 13.0 % 10.0-14.5 Automated blood platelet count (count/volume) 202 10*3/uL 130-400 Automated blood platelet mean volume measurement 9.1 [foz_us] 7.4-10.4 Automated blood neutrophils/100 leukocytes 57 % 42-75 Automated blood lymphocytes/100 leukocytes 23 % 12-44 Blood monocytes/100 leukocytes 13 % 0-12 Automated blood eosinophils/100 leukocytes 7 % 0-10 Automated blood basophils/100 leukocytes 1 % 0-10 Blood neutrophils automated count (number/volume) 3.3 10*3 1.8-7.8 Blood lymphocytes automated count (number/volume) 1.3 10*3 1.0-4.0 Blood monocytes automated count (number/volume) 0.7 10*3 0.0-1.0 Automated eosinophil count 0.4 10*3/uL 0.0-0.3 Automated blood basophil count (count/volume) 0.0 10*3/uL 0.0-0.1 Serum or plasma creatine kinase measurement (enzymatic activity/volume) - 12/15 03:44 Serum or plasma creatine kinase measurement (enzymatic activity/volume) 399 U/L 30-200 Whole blood basic metabolic panel - 12/15/17 03:44 Serum or plasma sodium measurement (moles/volume) 135 mmol/L 135-145 Serum or plasma potassium measurement (moles/volume) 3.7 mmol/L 3.6-5.0 Serum or plasma chloride measurement (moles/volume) 106 mmol/L 98-107 Carbon dioxide 16 mmol/L 21-32 Serum or plasma anion gap determination (moles/volume) 13 mmol/L 5-14 Serum or plasma urea nitrogen measurement (mass/volume) 29 mg/dL 7-18 Serum or plasma creatinine measurement (mass/volume) 1.02 mg/dL 0.60-1.30 Serum or plasma urea nitrogen/creatinine mass ratio 28 NRG Serum or plasma creatinine measurement with calculation of estimated glomerular filtration rate > NRG Serum or plasma glucose measurement (mass/volume) 189 mg/dL 70-105 Serum or plasma calcium measurement (mass/volume) 8.9 mg/dL 8.5-10.1 Serum or plasma phosphate measurement (mass/volume) - 12/15/17 03:44 Serum or plasma phosphate measurement (mass/volume) 3.0 mg/dL 2.3-4.7 Magnesium - 12/15/17 03:44 Magnesium 2.2 mg/dL 1.8-2.4 Serum or plasma troponin i.cardiac measurement (mass/volume) - 12/15/17 03:44 Serum or plasma troponin i.cardiac measurement (mass/volume) 0.72 ng /mL <0.30 Serum or plasma thyroxine (T4) free measurement (mass/volume) - 12/15/17 03:44 Serum or plasma thyroxine (T4) free measurement (mass/volume) 1.10 ng/dL 0.70-1.48 Capillary blood glucose measurement by glucometer (mass/volume) - 12/15/17 10: 38 Capillary blood glucose measurement by glucometer (mass/volume) 158 mg/dL 70-110 Total triiodothyronine (T3) measurement - 12/15/17 11:15 Total triiodothyronine (T3) measurement 0.9 % 0.6-1.8 Capillary blood glucose measurement by glucometer (mass/volume) - 12/15/17 16: 34 Capillary blood glucose measurement by glucometer (mass/volume) 180 mg/dL 70-110 Capillary blood glucose measurement by glucometer (mass/volume) - 12/15/17 21: 09 Capillary blood glucose measurement by glucometer (mass/volume) 181 mg/dL 70-110 Complete blood count (CBC) with automated white blood cell (WBC) differential - 12/16/17 03:15 Blood leukocytes automated count (number/volume) 4.5 10*3/uL 4.3-11.0 Blood erythrocytes automated count (number/volume) 4.74 10*6/uL 4.35-5.85 Venous blood hemoglobin measurement (mass/volume) 15.4 g/dL 13.3-17.7 Blood hematocrit (volume fraction) 41 % 40-54 Automated erythrocyte mean corpuscular volume 86 [foz_us] 80-99 Automated erythrocyte mean corpuscular hemoglobin (mass per erythrocyte) 33 pg 25-34 Automated erythrocyte mean corpuscular hemoglobin concentration measurement ( mass/volume) 38 g/dL 32-36 Automated erythrocyte distribution width ratio 12.9 % 10.0-14.5 Automated blood platelet count (count/volume) 209 10*3/uL 130-400 Automated blood platelet mean volume measurement 8.8 [foz_us] 7.4-10.4 Automated blood neutrophils/100 leukocytes 58 % 42-75 Automated blood lymphocytes/100 leukocytes 23 % 12-44 Blood monocytes/100 leukocytes 12 % 0-12 Automated blood eosinophils/100 leukocytes 7 % 0-10 Automated blood basophils/100 leukocytes 0 % 0-10 Blood neutrophils automated count (number/volume) 2.6 10*3 1.8-7.8 Blood lymphocytes automated count (number/volume) 1.0 10*3 1.0-4.0 Blood monocytes automated count (number/volume) 0.5 10*3 0.0-1.0 Automated eosinophil count 0.3 10*3/uL 0.0-0.3 Automated blood basophil count (count/volume) 0.0 10*3/uL 0.0-0.1 Whole blood basic metabolic panel - 12/16/17 03:15 Serum or plasma sodium measurement (moles/volume) 135 mmol/L 135-145 Serum or plasma potassium measurement (moles/volume) 3.5 mmol/L 3.6-5.0 Serum or plasma chloride measurement (moles/volume) 109 mmol/L 98-107 Carbon dioxide 16 mmol/L 21-32 Serum or plasma anion gap determination (moles/volume) 10 mmol/L 5-14 Serum or plasma urea nitrogen measurement (mass/volume) 24 mg/dL 7-18 Serum or plasma creatinine measurement (mass/volume) 1.01 mg/dL 0.60-1.30 Serum or plasma urea nitrogen/creatinine mass ratio 24 NRG Serum or plasma creatinine measurement with calculation of estimated glomerular filtration rate > NRG Serum or plasma glucose measurement (mass/volume) 194 mg/dL 70-105 Serum or plasma calcium measurement (mass/volume) 8.6 mg/dL 8.5-10.1 Serum or plasma phosphate measurement (mass/volume) - 12/16/17 03:15 Serum or plasma phosphate measurement (mass/volume) 2.4 mg/dL 2.3-4.7 Magnesium - 12/16/17 03:15 Magnesium 2.1 mg/dL 1.8-2.4 Capillary blood glucose measurement by glucometer (mass/volume) - 12/16/17 11: 46 Capillary blood glucose measurement by glucometer (mass/volume) 168 mg/dL 70-110 Capillary blood glucose measurement by glucometer (mass/volume) - 12/16/17 18: 36 Capillary blood glucose measurement by glucometer (mass/volume) 187 mg/dL 70-110 Capillary blood glucose measurement by glucometer (mass/volume) - 12/16/17 20: 38 Capillary blood glucose measurement by glucometer (mass/volume) 132 mg/dL 70-110 Complete blood count (CBC) with automated white blood cell (WBC) differential - 12/17/17 03:10 Blood leukocytes automated count (number/volume) 5.6 10*3/uL 4.3-11.0 Blood erythrocytes automated count (number/volume) 4.58 10*6/uL 4.35-5.85 Venous blood hemoglobin measurement (mass/volume) 14.9 g/dL 13.3-17.7 Blood hematocrit (volume fraction) 39 % 40-54 Automated erythrocyte mean corpuscular volume 85 [foz_us] 80-99 Automated erythrocyte mean corpuscular hemoglobin (mass per erythrocyte) 33 pg 25-34 Automated erythrocyte mean corpuscular hemoglobin concentration measurement ( mass/volume) 38 g/dL 32-36 Automated erythrocyte distribution width ratio 12.5 % 10.0-14.5 Automated blood platelet count (count/volume) 189 10*3/uL 130-400 Automated blood platelet mean volume measurement 9.0 [foz_us] 7.4-10.4 Automated blood neutrophils/100 leukocytes 43 % 42-75 Automated blood lymphocytes/100 leukocytes 35 % 12-44 Blood monocytes/100 leukocytes 12 % 0-12 Automated blood eosinophils/100 leukocytes 9 % 0-10 Automated blood basophils/100 leukocytes 0 % 0-10 Blood neutrophils automated count (number/volume) 2.4 10*3 1.8-7.8 Blood lymphocytes automated count (number/volume) 2.0 10*3 1.0-4.0 Blood monocytes automated count (number/volume) 0.7 10*3 0.0-1.0 Automated eosinophil count 0.5 10*3/uL 0.0-0.3 Automated blood basophil count (count/volume) 0.0 10*3/uL 0.0-0.1 Whole blood basic metabolic panel - 12/17/17 03:10 Serum or plasma sodium measurement (moles/volume) 133 mmol/L 135-145 Serum or plasma potassium measurement (moles/volume) 3.1 mmol/L 3.6-5.0 Serum or plasma chloride measurement (moles/volume) 107 mmol/L 98-107 Carbon dioxide 15 mmol/L 21-32 Serum or plasma anion gap determination (moles/volume) 11 mmol/L 5-14 Serum or plasma urea nitrogen measurement (mass/volume) 16 mg/dL 7-18 Serum or plasma creatinine measurement (mass/volume) 0.96 mg/dL 0.60-1.30 Serum or plasma urea nitrogen/creatinine mass ratio 17 NRG Serum or plasma creatinine measurement with calculation of estimated glomerular filtration rate > NRG Serum or plasma glucose measurement (mass/volume) 161 mg/dL 70-105 Serum or plasma calcium measurement (mass/volume) 8.5 mg/dL 8.5-10.1 Serum or plasma phosphate measurement (mass/volume) - 12/17/17 03:10 Serum or plasma phosphate measurement (mass/volume) 2.7 mg/dL 2.3-4.7 Magnesium - 12/17/17 03:10 Magnesium 2.1 mg/dL 1.8-2.4 Capillary blood glucose measurement by glucometer (mass/volume) - 12/17/17 12: 01 Capillary blood glucose measurement by glucometer (mass/volume) 134 mg/dL 70-110 Capillary blood glucose measurement by glucometer (mass/volume) - 12/17/17 14: 20 Capillary blood glucose measurement by glucometer (mass/volume) 138 mg/dL 70-110 BMP - 12/24/17 15:46 Anion Gap 17 6-14 BUN 19 mg/dL 5-25 Calcium 9.2 mg/dL 8.3-10.4 Chloride 107 mmol/L 95-114 CO2 17 mEq/L 22-33 Creat 0.92 mg/dL 0.50-1.50 eGFR 85 mL/min/1.73m2 >59 Glucose 274 mg/dL 70-110 Osmo 294 280-295 Potassium 4.4 mmol/L 3.5-5.3 Sodium 137 mmol/L 134-148 Encounters ACCT No. Visit Date/Time Discharge Status Pt. Type Provider Facility Loc./Unit Complaint [id number] 11/11/2014 17:51:24 11/11/2014 23:59:59 CLS Outpatient Mark Anna [id number] 12/24/2017 15:46:00 12/24/2017 23:59:00 DIS Outpatient KRISTAL BABIN [id number] 12/14/2017 18:27:00 12/14/2017 22:42:00 DIS Outpatient [facility] [place] [id number] 12/12/2017 14:54:00 12/12/2017 23:59:00 DIS Outpatient KRISTAL BABIN [id number] 06/13/2017 13:30:00 06/13/2017 23:59:00 DIS Outpatient KRISTAL BABIN [id number] 02/11/2017 19:10:00 02/11/2017 23:59:00 DIS Outpatient KRISTAL BABIN [id number] 01/19/2017 17:42:00 01/19/2017 23:59:00 DIS Outpatient Vida Christopher [id number] 12/06/2016 11:43:00 12/06/2016 23:59:00 DIS Outpatient KRISTAL BABIN [id number] 12/14/2017 19:19:07 Document Registration [id number] 12/14/2017 23:08:00 12/17/2017 17:10:00 DIS Outpatient TANVIR LARSON, MARIA M Burgess [facility] CATH ACUTE RENAL, DEHYDRATION,CARDIAC ISSUES [id number] 11/25/2017 08:36:00 11/25/2017 23:59:59 CLS Outpatient MICHEL GALEANA SLAB WORKER [facility] RT J30.9 ALLERGIC RHINITIS [id number] 10/09/2016 16:07:00 10/09/2016 23:59:59 CLS Outpatient MICHEL GALEANA SLAB WORKER [facility] RAD FEVER [id number] 09/28/2016 08:33:00 09/28/2016 23:59:59 CLS Outpatient AZUL LARSON FACC, JAVIER SANDY CCDS [facility] CARD CARDIAC MURMUR,EXERTIONAL DYSPNEA,SLEEP APNEA [id number] 01/31/2016 21:19:00 02/01/2016 06:26:00 DIS Outpatient MICHEL GALEANA APRN [facility] SLEEP SNORING,DAYTIME SLEEPINESS [id number] 01/06/2016 12:45:00 01/06/2016 15:00:00 DIS Emergency FUENTES LARSON, KELSIE D [facility] ER DIZZINESS [id number] 12/29/2015 21:46:00 12/30/2015 01:44:00 DIS Emergency MYRON LARSON, HALEIGH Vicente [facility] ER NAUSEA,VOMITING [id number] 11/24/2015 08:38:00 11/24/2015 23:59:59 CLS Outpatient DEVYN LEMUS 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 [facility] CARD CHEST PAIN, PALPITATIONS [id number] 11/08/2015 09:13:00 11/08/2015 23:59:59 CLS Outpatient DEVYN LEMUS L 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 [facility] LAB CHEST PAIN, EXERTIONAL DYSPNEA, PALPITATIONS [id number] 08/04/2015 16:49:00 08/04/2015 23:59:59 CLS Outpatient YUMI LARSON, CHAYA Pulido [facility] LAB ED [id number] 12/04/2014 22:10:00 12/04/2014 22:30:00 DIS Emergency FUENTES LARSON, KELSIE Enamorado [facility] ER RT FOOT INJ;STEPPED ON A SCREW [id number] 09/15/2014 14:26:00 09/15/2014 23:59:59 CLS Outpatient DEVYN LEMUS [facility] LAB PALPITATIONS,SLEEP APNEA,RBBB,TOBACCO ABUSE [id number] 08/26/2014 08:51:00 08/26/2014 23:59:59 CLS Outpatient TALYA LARSON, KRISTAL Chavez [facility] CARD NEW MURMUR, PALPITATIONS, CHEST PAIN [id number] 07/30/2014 10:06:00 07/30/2014 23:59:59 CLS Outpatient YUMI LARSON, CHAYA Pulido [facility] LAB BPH,ED [id number] 05/28/2012 11:56:00 Document Registration [id number] 05/02/2012 21:56:00 Document Registration [id number] 03/27/2011 10:58:00 Document Registration [id number] 02/15/2010 05:40:00 Document Registration [id number] 02/10/2010 08:09:00 Document Registration [id number] 01/19/2010 14:18:00 Document Registration [id number] 12/22/2009 06:38:00 Document Registration [id number] 04/07/2018 13:57:00 04/07/2018 15:23:00 DIS Emergency MOLLY TAYLOR [facility] ER HEAD INJ, BLEEDING
[2018-04-19] MEDS ORDERED: METOCLOPRAMIDE INJ 10 MG/2 ML (REGLAN) IVP ONE (14:45)
[2018-04-19] MEDS ORDERED: LORazepam INJ 2 MG/ML (ATIVAN) VIAL IVP ONE (14:45)
--- NOTE | 2018-04-19 15:15 | ED General ---
General Chief Complaint: Oral/Throat Problems Stated Complaint: ACID RELEX Source of Information: Patient Exam Limitations: No Limitations History of Present Illness Date Seen by Provider: Apr 19, 2018 Time Seen by Provider: 13:41 Initial Comments This 57-year-old gentleman presents to the emergency room with difficulty swallowing after eating pork chops last night. He is unable to keep even water or his saliva down. He immediately regurgitates after trying to consume liquids. He has not tried to eat. He does have a history of esophageal stricture requiring dilatation in the past. Allergies and Home Medications Allergies Coded Allergies: No Known Drug Allergies (Unverified , 04/07/18) Patient Home Medication List Home Medication List Reviewed: Yes Review of Systems Review of Systems Constitutional: no symptoms reported EENTM: no symptoms reported Respiratory: no symptoms reported Cardiovascular: no symptoms reported Gastrointestinal: see HPI Genitourinary: no symptoms reported Musculoskeletal: no symptoms reported Skin: no symptoms reported Psychiatric/Neurological: No Symptoms Reported Hematologic/Lymphatic: No Symptoms Reported Past Hiwqrdp-Sgmpax-Dhwoix Hx Patient Social History Type Used: Cigars 2nd Hand Smoke Exposure: Yes Recent Foreign Travel: No Contact w/Someone Who Travel: No Recent Hopitalizations: No Seasonal Allergies Seasonal Allergies: No Past Medical History Surgeries: Yes (COLECTOMY, Esophageal dilatation) Respiratory: No Cardiac: No Neurological: No Genitourinary: No Gastrointestinal: Yes Crohns Disease Musculoskeletal: No Endocrine: Yes Diabetes, Non-Insulin dep Psychosocial: No Physical Exam Vital Signs Capillary Refill : Height, Weight, BMI Height: 6'3.00" Weight: 300lbs. 0oz. 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 Norm as Tested Procedures/Interventions Suture Size: 4-0 Progress/Results/Core Measures Suspected Sepsis SIRS Temperature: Pulse: Respiratory Rate: Blood Pressure / Mean: Results/Orders My Orders Orders - HALEIGH SANCHES MD Glucagon Emergency Kit (Glucagon Emergen (04/19/18 14:00) Ondansetron Injection (Zofran Injectio (04/19/18 14:00) Hyoscyamine Sl Tablet (Levsin Sl Tablet) (04/19/18 14:00) Lorazepam Injection (Ativan Injection) (04/19/18 14:45) Metoclopramide Injection (Reglan Injecti (04/19/18 14:45) Cbc With Automated Diff (04/19/18 15:10) Comprehensive Metabolic Panel (04/19/18 15:10) Medications Given in ED Current Medications Medications Dose Ordered Sig/Marv Route Start Time Stop Time Status Last Admin Dose Admin Glucagon 1 mg ONCE ONCE IV 04/19/18 14:00 04/19/18 14:01 DC 04/19/18 14:06 1 MG Hyoscyamine Sulfate 0.25 mg ONCE ONCE SL 04/19/18 14:00 04/19/18 14:01 DC 04/19/18 14:03 0.25 MG Lorazepam 1 mg ONCE ONCE IVP 04/19/18 14:45 04/19/18 14:46 DC 04/19/18 14:49 1 MG Metoclopramide HCl 5 mg ONCE ONCE IVP 04/19/18 14:45 04/19/18 14:46 DC 04/19/18 14:48 5 MG Ondansetron HCl 4 mg ONCE ONCE IVP 04/19/18 14:00 04/19/18 14:01 DC 04/19/18 14:04 4 MG Vital Signs/I&O Capillary Refill : Progress Note : Progress Note Patient was treated with glucagon and Levsin without any improvement. He was further treated with Ativan and Reglan. This also failed to resolve his symptoms. Case was discussed with Dr. Dwyer who requested admission with scheduled Reglan, Ativan, and glucagon as well as EGD to be scheduled in the morning. Departure Communication (Admissions) Time/Spoke to Admitting Phy: 14:35 Dr. Dwyer Impression Primary Impression: Esophageal obstruction Disposition: ADMITTED INPATIENT Condition: Stable Admissions Decision to Admit Reason: Admit from ER (General) Decision to Admit/Date: Apr 19, 2018 Time/Decision to Admit Time: 15:05 Departure-Patient Inst. Referrals: KRISTAL BABIN MD (PCP/Family) Primary Care Physician HALEIGH SANCHES MD Apr 19, 2018 15:15
[2018-04-19 15:34] LABS: BASOPHILS # (AUTO) 0.1 10^3/uL (0.0-0.1); BASOPHILS % (AUTO) 1 % (0-10); EOSINOPHILS % (AUTO) 0 % (0-10); HEMATOCRIT 39 % (40-54); HEMOGLOBIN 14.8 G/DL (13.3-17.7); LYMPHOCYTES # (AUTO) 1.4 X 10^3 (1.0-4.0); LYMPHOCYTES % (AUTO) 19 % (12-44); MEAN CORPUSCULAR HEMOGLOBIN 32 PG (25-34); MEAN CORPUSCULAR HGB CONC 38 G/DL (32-36); MEAN CORPUSCULAR VOLUME 86 FL (80-99); MEAN PLATELET VOLUME 9.3 FL (7.4-10.4); MONOCYTES # (AUTO) 0.4 X 10^3 (0.0-1.0); MONOCYTES % (AUTO) 6 % (0-12); NEUTROPHILS # (AUTO) 5.6 X 10^3 (1.8-7.8); NEUTROPHILS % (AUTO) 75 % (42-75); PLATELET COUNT 173 10^3/uL (130-400); RED BLOOD COUNT 4.59 10^6/uL (4.35-5.85); WHITE BLOOD COUNT 7.5 10^3/uL (4.3-11.0)
--- OUTSIDE RECORDS SUMMARY | 2018-04-19 15:48 | XMS REPORT | Continuity of Care Document ---
Author Author [facility] [place] Address Unknown Phone Unavailable Allergies Active Description Code Type Severity Reaction Onset Reported/Identified Relationship to Patient Clinical Status Yes NO KNOWN DRUG ALLERGIES UNKNOWN NO KNOWN DRUG ALLERG Yes No Known Drug Allergies [id number] Drug Allergy Unknown N/A 02/10/2010 Yes No Known Drug Allergies [id number] Drug Allergy Unknown N/A 04/07/2018 Medications Medication [...] Pulido Ot 607.84 09/29/2014 DEVYN LEMUS L SQUEEGEE TENDER Ot 305.1 09/29/2014 BAIMADEVYN L SQUEEGEE TENDER Ot 426.4 09/29/2014 BAIMA DEVYN L SQUEEGEE TENDER Ot 780.57 09/29/2014 DEVYN LEMUS L SQUEEGEE TENDER Ot 785.1 10/07/2014 TALYA LARSON, KRISTAL Chavez [...] 12/04/2014 FUENTES LARSON, KELSIE Enamorado Ot V06.1 [id number], COMBINED [ 08/04/2015 Ot 780.79 08/04/2015 Ot 786.2 08/04/2015 Ot 780.79 08/04/2015 Ot 786.09 08/04/2015 YUMI LARSON, CHAYA Pulido Ot 600.00 08/04/2015 YUMI LARSON, CHAYA Pulido Ot 607.84 08/04/2015 TALYA LARSON, KRISTAL L Ot 785.1 08/04/2015 TALYA LARSON, KRISTAL L Ot 785.2 08/04/2015 TALYA LARSON, KRISTAL L Ot 786.50 08/04/2015 BAIMA, DEVYN L SQUEEGEE TENDER Ot 305.1 08/04/2015 BAIMA DEVYN L SQUEEGEE TENDER Ot 426.4 08/04/2015 BAIMA DEVYN L SQUEEGEE TENDER Ot 780.57 08/04/2015 BAIINA DEVYN L SQUEEGEE TENDER Ot 785.1 08/18/2015 CHAYA EASON MD Ot [...] L Ot 786.50 11/08/2015 MARIAH DEVYN L SQUEEGEE TENDER Ot 305.1 11/08/2015 MARIAH DEVYN L SQUEEGEE TENDER Ot 426.4 11/08/2015 BAIMA, DEVYN L SQUEEGEE TENDER Ot 780.57 11/08/2015 MARIAH DEVYN L SQUEEGEE TENDER Ot 785.1 11/08/2015 CHAYA EASON MD Ot N40.0 11/08/2015 YUMI LARSON, CHAYA Tess Ot N52.9 11/23/2015 BAIMA, DEVYN L SQUEEGEE TENDER Ot G47.33 11/23/2015 BAIMA, DEVYN L SQUEEGEE TENDER Ot I45.19 11/23/2015 BAIMA, DEVYN L SQUEEGEE TENDER Ot R00.2 11/23/2015 BAIMA, DEVYN L SQUEEGEE TENDER Ot R06.09 11/23/2015 BAIMA, DEVYN L SQUEEGEE TENDER Ot R07.9 11/23/2015 BAIMA, DEVYN L SQUEEGEE TENDER Ot Z72.0 11/24/2015 Ot 780.79 11/24/2015 Ot 786.2 11/24/2015 Ot 780.79 11/24/2015 Ot 786.09 11/24/2015 YUMI LARSON, CHAYA Tess Ot 600.00 11/24/2015 YUMI LARSON, CHAYA Tess Ot 607.84 11/24/2015 TALYA LARSON, KRISTAL L Ot 785.1 11/24/2015 TALYA LARSON, KRISTAL L Ot 785.2 11/24/2015 TALYA LARSON, KRISTAL L Ot 786.50 11/24/2015 BAIMA, DEVYN L SQUEEGEE TENDER Ot 305.1 11/24/2015 BAIMA, DEVYN L SQUEEGEE TENDER Ot 426.4 11/24/2015 BAIMA, DEVYN L SQUEEGEE TENDER Ot 780.57 11/24/2015 BAIMA, DEVYN L SQUEEGEE TENDER Ot 785.1 11/24/2015 YUMI LARSON, CHAYA Pulido Ot N40.0 11/24/2015 YUMI LARSON, CAHYA A Ot N52.9 11/24/2015 BAIMA, DEVYN L SQUEEGEE TENDER Ot G47.33 11/24/2015 BAIMA, DEVYN L SQUEEGEE TENDER Ot I45.19 11/24/2015 BAIMA, DEVYN L SQUEEGEE TENDER Ot R00.2 11/24/2015 BAIMA, DEVYN L SQUEEGEE TENDER Ot R06.09 11/24/2015 BAIMA, DEVYN L SQUEEGEE TENDER Ot R07.9 11/24/2015 BAIMA, DEVYN L SQUEEGEE TENDER Ot Z72.0 11/25/2015 BAIMA, DEVYN L SQUEEGEE TENDER Ot G47.33 11/25/2015 BAIMA, DEVYN L SQUEEGEE TENDER Ot I45.19 11/25/2015 BAIMA, DEVYN L SQUEEGEE TENDER Ot R00.2 11/25/2015 BAIMA, DEVYN L SQUEEGEE TENDER Ot R06.09 11/25/2015 BAIMA, DEVYN L SQUEEGEE TENDER Ot R07.9 11/25/2015 BAIMA, DEVYN L SQUEEGEE TENDER Ot Z72.0 12/07/2015 BAIMA, DEVYN L SQUEEGEE TENDER Ot G47.33 OBSTRUCTIVE SLEEP APNEA (ADULT) (PEDIATR 12/07/2015 BAIMA, DEVYN L SQUEEGEE TENDER Ot I45.19 OTHER RIGHT BUNDLE-BRANCH BLOCK 12/07/2015 BAIMA, DEVYN L SQUEEGEE TENDER Ot R00.2 PALPITATIONS 12/07/2015 BAIMA, DEVYN L SQUEEGEE TENDER Ot R06.09 OTHER FORMS OF DYSPNEA 12/07/2015 BAIMA, DEVYN L SQUEEGEE TENDER Ot R07.9 CHEST PAIN, UNSPECIFIED 12/07/2015 BAIMA, DEVYN L SQUEEGEE TENDER Ot Z72.0 TOBACCO USE 12/30/2015 Ot 780.79 [...] CHEST PAIN NOS 12/30/2015 MARIAH, DEVYN L SQUEEGEE TENDER Ot 305.1 TOBACCO USE DISORDER 12/30/2015 BAIMA, DEVYN L SQUEEGEE TENDER Ot 426.4 RT BUNDLE BRANCH BLOCK 12/30/2015 ORALIAMA, DEVYN L SQUEEGEE TENDER Ot 780.57 UNSPECIFIED SLEEP APNEA 12/30/2015 BAIMA, DEVYN L SQUEEGEE TENDER Ot 785.1 PALPITATIONS 12/30/2015 CHAYA EASON MD Ot N40.0 ENLARGED PROSTATE WITHOUT LOWER URINARY 12/30/2015 CHAYA EASON MD Ot N52.9 MALE ERECTILE DYSFUNCTION, UNSPECIFIED 12/30/2015 BAIMA, DEVYN L SQUEEGEE TENDER Ot G47.33 OBSTRUCTIVE SLEEP APNEA (ADULT) (PEDIATR 12/30/2015 BAIMA, DEVYN L SQUEEGEE TENDER Ot I45.19 OTHER RIGHT BUNDLE-BRANCH BLOCK 12/30/2015 BAIMA, DEVYN L SQUEEGEE TENDER Ot R00.2 PALPITATIONS 12/30/2015 BAIMA, DEVYN L SQUEEGEE TENDER Ot R06.09 OTHER FORMS OF DYSPNEA 12/30/2015 BAIMA, DEVYN L SQUEEGEE TENDER Ot R07.9 CHEST PAIN, UNSPECIFIED 12/30/2015 BAIMA, DEVYN L SQUEEGEE TENDER Ot Z72.0 TOBACCO USE 12/30/2015 BAIMA, DEVYN L SQUEEGEE TENDER Ot G47.33 OBSTRUCTIVE SLEEP APNEA (ADULT) (PEDIATR 12/30/2015 BAIMA, DEVYN L SQUEEGEE TENDER Ot I45.19 OTHER RIGHT BUNDLE-BRANCH BLOCK 12/30/2015 BAIMA, DEVYN L SQUEEGEE TENDER Ot R00.2 PALPITATIONS 12/30/2015 BAIMA, DEVYN L SQUEEGEE TENDER Ot R06.09 OTHER FORMS OF DYSPNEA 12/30/2015 BAIMA, DEVYN L SQUEEGEE TENDER Ot R07.9 CHEST PAIN, UNSPECIFIED 12/30/2015 BAIMA, DEVYN L SQUEEGEE TENDER Ot Z72.0 TOBACCO USE 12/30/2015 MYRON LARSON, [...] R42 DIZZINESS AND GIDDINESS 02/01/2016 MICHEL GALEANA AGRICULTURAL EQUIPMENT MECHANIC Ot G47.33 OBSTRUCTIVE SLEEP APNEA (ADULT) (PEDIATR 02/07/2016 MICHEL GALEANA AGRICULTURAL EQUIPMENT MECHANIC Ot G47.33 OBSTRUCTIVE SLEEP APNEA (ADULT) (PEDIATR 02/07/2016 MICHEL GALEANA AGRICULTURAL EQUIPMENT MECHANIC Ot G47.33 OBSTRUCTIVE SLEEP APNEA (ADULT) (PEDIATR 10/01/2016 AZUL LARSON FACC, JAVIER FACP CCDS Ot G47.33 OBSTRUCTIVE SLEEP APNEA (ADULT) (PEDIATR 10/01/2016 AZUL LARSON FACC, JAVIER FACP CCDS Ot R01.2 OTHER CARDIAC SOUNDS 10/01/2016 AZUL LARSON FACC, JAVIER FACP CCDS Ot R06.09 OTHER FORMS OF DYSPNEA 10/01/2016 AZUL LARSON FACC, ALI FACP CCDS Ot Z72.0 TOBACCO USE 10/10/2016 MICHEL GALEANA AGRICULTURAL EQUIPMENT MECHANIC Ot R50.9 FEVER, UNSPECIFIED 10/10/2016 MICHEL GALEANA AGRICULTURAL EQUIPMENT MECHANIC Ot Z72.0 TOBACCO USE 10/17/2016 AZUL LARSON FACC, JAVIER FACP CCDS Ot G47.33 OBSTRUCTIVE SLEEP APNEA (ADULT) (PEDIATR 10/17/2016 AZUL LARSON FACC, ALI FACP CCDS Ot R01.2 OTHER CARDIAC SOUNDS 10/17/2016 AZUL LARSON FACC, ALI FACP CCDS Ot R06.09 OTHER FORMS OF DYSPNEA 10/17/2016 AZUL LARSON FAC, JAVIER SANTAMARIAP CCDS Ot Z72.0 TOBACCO USE 10/24/2016 MICHEL GALEANA AGRICULTURAL EQUIPMENT MECHANIC Ot R50.9 FEVER, UNSPECIFIED 10/24/2016 MICHEL GALEANA AGRICULTURAL EQUIPMENT MECHANIC Ot Z72.0 TOBACCO USE 01/19/2017 Vida Christopher 729.5 PAIN IN LIMB 01/19/2017 Vida Christopher M79.672 PAIN IN LEFT FOOT 11/26/2017 MICHEL GALEANA APRN Ot J30.9 ALLERGIC RHINITIS, UNSPECIFIED 11/26/2017 MICHEL GALEANA APRN Ot R05 COUGH 11/26/2017 MICHEL GALEANA AGRICULTURAL EQUIPMENT MECHANIC Ot R06.09 OTHER FORMS OF DYSPNEA 12/12/2017 [...] Ot E55.9 VITAMIN D DEFICIENCY, UNSPECIFIED 12/17/2017 MARIA M RAMEY MD, Ot E66.9 OBESITY, UNSPECIFIED [...] MD Ot I25.10 ATHSCL HEART DISEASE OF [place] CORONARY 12/17/2017 MARIA M RAMEY MD Ot [...] MD Ot I25.10 ATHSCL HEART DISEASE OF [place] CORONARY 12/20/2017 MARIA M RAMEY MD Ot [...] MD Ot I25.10 ATHSCL HEART DISEASE OF [place] CORONARY 12/20/2017 MARIA M RAMEY MD Ot [...] MD, Ot I25.10 ATHSCL HEART DISEASE OF [place] CORONARY 12/23/2017 MARIA M RAMEY MD Ot [...] MD Ot I25.10 ATHSCL HEART DISEASE OF [place] CORONARY 12/25/2017 MARIA M RAMEY MD Ot [...] CHEST PAIN NOS 04/07/2018 BAIMA, DEVYN L SQUEEGEE TENDER Ot 305.1 TOBACCO USE DISORDER 04/07/2018 BAIMA, DEVYN L SQUEEGEE TENDER Ot 426.4 RT BUNDLE BRANCH BLOCK 04/07/2018 BAIMA, DEVYN L SQUEEGEE TENDER Ot 780.57 UNSPECIFIED SLEEP APNEA 04/07/2018 BAIMA, DEVYN L SQUEEGEE TENDER Ot 785.1 PALPITATIONS 04/07/2018 YUMI LARSON, CHAYA Pulido Ot N40.0 ENLARGED PROSTATE WITHOUT LOWER URINARY 04/07/2018 YUMI LARSON, CHAYA A Ot N52.9 MALE ERECTILE DYSFUNCTION, UNSPECIFIED 04/07/2018 BAIMA, DEVYN L SQUEEGEE TENDER Ot G47.33 OBSTRUCTIVE SLEEP APNEA (ADULT) (PEDIATR 04/07/2018 BAIMA, DEVYN L SQUEEGEE TENDER Ot I45.19 OTHER RIGHT BUNDLE-BRANCH BLOCK 04/07/2018 BAIMA, DEVYN L SQUEEGEE TENDER Ot R00.2 PALPITATIONS 04/07/2018 BAIMA, DEVYN L SQUEEGEE TENDER Ot R06.09 OTHER FORMS OF DYSPNEA 04/07/2018 BAIMA, DEVYN L SQUEEGEE TENDER Ot R07.9 CHEST PAIN, UNSPECIFIED 04/07/2018 BAIMA, DEVYN L SQUEEGEE TENDER Ot Z72.0 TOBACCO USE 04/07/2018 BAIMA, DEVYN L SQUEEGEE TENDER Ot G47.33 OBSTRUCTIVE SLEEP APNEA (ADULT) (PEDIATR 04/07/2018 BAIMA, DEVYN L SQUEEGEE TENDER Ot I45.19 OTHER RIGHT BUNDLE-BRANCH BLOCK 04/07/2018 BAIMA, DEVYN L SQUEEGEE TENDER Ot R00.2 PALPITATIONS 04/07/2018 BAIMA, DEVYN L SQUEEGEE TENDER Ot R06.09 OTHER FORMS OF DYSPNEA 04/07/2018 BAIMA, DEVYN L SQUEEGEE TENDER Ot R07.9 CHEST PAIN, UNSPECIFIED 04/07/2018 BAIMA, DEVYN L SQUEEGEE TENDER Ot Z72.0 TOBACCO USE 04/07/2018 AZUL LARSON FACC, ALI FACP CCDS Ot G47.33 OBSTRUCTIVE SLEEP APNEA (ADULT) (PEDIATR 04/07/2018 AZUL LARSON FACC, ALI FACP CCDS Ot R01.2 OTHER CARDIAC SOUNDS 04/07/2018 AZUL LARSON [facility], JAVIER [facility] CCDS Ot R06.09 OTHER FORMS OF DYSPNEA 04/07/2018 AZUL LARSON FAC, JAVIER [facility] CCDS Ot Z72.0 TOBACCO USE 04/07/2018 MICHEL GALEANA Axel AGRICULTURAL EQUIPMENT MECHANIC Ot R50.9 FEVER, UNSPECIFIED 04/07/2018 LISSETTMAGALIS OLSONINE E AGRICULTURAL EQUIPMENT MECHANIC Ot Z72.0 TOBACCO USE 04/07/2018 MICHEL GALEANA AGRICULTURAL EQUIPMENT MECHANIC Ot J30.9 ALLERGIC RHINITIS, UNSPECIFIED 04/07/2018 MAGALIS GALEANAINE E AGRICULTURAL EQUIPMENT MECHANIC Ot R05 COUGH 04/07/2018 MICHEL GALEANA AGRICULTURAL EQUIPMENT MECHANIC Ot R06.09 OTHER FORMS OF DYSPNEA Procedures [...] 5-8.5 Urine-Protein 2+ Negative Urine-RBC 1-3/HPF Urine-Specific [place] >=1.030 1.000-1.030 Urine-WBC 2-5/HPF Urobilinogen 0.2 0.2-1.0 [...] Status Pt. Type Provider Facility Loc./Unit Complaint [id number] 11/11/2014 17:51:24 11/11/2014 23:59:59 CLS Outpatient Mark Anna [id number] 12/24/2017 15:46:00 12/24/2017 23:59:00 DIS Outpatient KRISTAL BABIN [id number] 12/14/2017 18:27:00 12/14/2017 22:42:00 DIS Outpatient [facility] [id number] 12/12/2017 14:54:00 12/12/2017 23:59:00 DIS Outpatient KRISTAL BABIN [id number] 06/13/2017 13:30:00 06/13/2017 23:59:00 DIS Outpatient KRISTAL BABIN [id number] 02/11/2017 19:10:00 02/11/2017 23:59:00 DIS Outpatient KRISTAL BABIN [id number] 01/19/2017 17:42:00 01/19/2017 23:59:00 DIS Outpatient Vida Christopher [id number] 12/06/2016 11:43:00 12/06/2016 23:59:00 DIS Outpatient KRITSAL BABIN [id number] 12/14/2017 19:19:07 Document Registration [id number] 12/14/2017 23:08:00 12/17/2017 17:10:00 DIS Outpatient TANVIR LARSON, MARIA M Burgess [facility] CATH ACUTE RENAL, DEHYDRATION,CARDIAC ISSUES [id number] 11/25/2017 08:36:00 11/25/2017 23:59:59 CLS Outpatient MICHEL GALEANA AGRICULTURAL EQUIPMENT MECHANIC [facility] RT J30.9 ALLERGIC RHINITIS [id number] 10/09/2016 16:07:00 10/09/2016 23:59:59 CLS Outpatient MICHEL GALEANA AGRICULTURAL EQUIPMENT MECHANIC [facility] RAD FEVER [id number] 09/28/2016 08:33:00 09/28/2016 23:59:59 CLS Outpatient AZUL LARSON FACC, JAVIER SANDY CCDS [facility] CARD CARDIAC MURMUR,EXERTIONAL DYSPNEA,SLEEP APNEA [id number] 01/31/2016 21:19:00 02/01/2016 06:26:00 DIS Outpatient MICHEL GALEANA APRN [facility] SLEEP SNORING,DAYTIME SLEEPINESS [id number] 01/06/2016 12:45:00 01/06/2016 15:00:00 DIS Emergency FUENTES LARSON, KELSIE D [facility] ER DIZZINESS [id number] 12/29/2015 21:46:00 12/30/2015 01:44:00 DIS Emergency MYRON LARSON, HALEIGH Vicente [facility] ER NAUSEA,VOMITING [id number] 11/24/2015 08:38:00 11/24/2015 23:59:59 CLS Outpatient DEVYN LEMUS SQUEEGEE TENDER [facility] CARD CHEST PAIN, PALPITATIONS [id number] 11/08/2015 09:13:00 11/08/2015 23:59:59 CLS Outpatient DEVYN LEMUS L SQUEEGEE TENDER [facility] LAB CHEST PAIN, EXERTIONAL DYSPNEA, PALPITATIONS [id number] 08/04/2015 16:49:00 08/04/2015 23:59:59 CLS Outpatient YUMI LARSON, CHAYA Pulido [facility] LAB ED [id number] 12/04/2014 22:10:00 12/04/2014 22:30:00 DIS Emergency FUENTES LARSON, KELSIE Enamorado [facility] ER RT FOOT INJ;STEPPED ON A SCREW [id number] 09/15/2014 14:26:00 09/15/2014 23:59:59 CLS Outpatient DEVYN LEMUS [facility] LAB PALPITATIONS,SLEEP APNEA,RBBB,TOBACCO ABUSE [id number] 08/26/2014 08:51:00 08/26/2014 23:59:59 CLS Outpatient TALYA LARSON, KRISTAL Chavez [facility] CARD NEW MURMUR, PALPITATIONS, CHEST PAIN [id number] 07/30/2014 10:06:00 07/30/2014 23:59:59 CLS Outpatient YUMI LARSON, CHAYA Pulido [facility] LAB BPH,ED [id number] 05/28/2012 11:56:00 Document Registration [id number] 05/02/2012 21:56:00 Document Registration [id number] 03/27/2011 10:58:00 Document Registration [id number] 02/15/2010 05:40:00 Document Registration [id number] 02/10/2010 08:09:00 Document Registration [id number] 01/19/2010 14:18:00 Document Registration [id number] 12/22/2009 06:38:00 Document Registration [id number] 04/07/2018 13:57:00 04/07/2018 15:23:00 DIS Emergency MOLLY TAYLOR [facility] ER HEAD INJ, BLEEDING
[2018-04-19 15:53] LABS: ALANINE AMINOTRANSFERASE 47 U/L (0-55); ALBUMIN 4.4 GM/DL (3.2-4.5); ALKALINE PHOSPHATASE 84 U/L (40-136); BILIRUBIN,TOTAL 1.7 MG/DL (0.1-1.0); BUN/CREATININE RATIO 21; CALCIUM 9.7 MG/DL (8.5-10.1); CARBON DIOXIDE 18 MMOL/L (21-32); CHLORIDE 111 MMOL/L (98-107); CREATININE SERUM 0.94 MG/DL (0.60-1.30); GFR ESTIMATED > 60; GLUCOSE 203 MG/DL (70-105); POTASSIUM 3.9 MMOL/L (3.6-5.0); SODIUM 141 MMOL/L (135-145)
[2018-04-19 16:08] VITALS: BP 163/85
[2018-04-19] MEDS: D5 1/2 NS 1000 ML IV SOLUTION 1,000 ML IV SCH (16:36)
[2018-04-19] MEDS: PANTOPRAZOLE 40 MG (PROTONIX) VIAL IV SCH (16:41)
[2018-04-19] MEDS: METOCLOPRAMIDE INJ 10 MG/2 ML (REGLAN) IVP SCH ×2 (16:41→23:49)
--- NOTE | 2018-04-19 17:56 | Conscious Sedation/ASA ---
Conscious Sedation Pre-Proced Time Reviewed: 17:55 ASA Class: 2 Airway Mallampati Classification: (venetie ira appropriate class) I. II. III, IV Lungs Heart ASA score ASA 1: a normal healthy patient ASA 2: a patient with a mild systemic disease (mid diabetes, controlled hypertension, obesity ASA 3: a patient with a severe systemic disease that limits activity (angina , COPD, prior Myocardial infarction) ASA 4: a patient with an incapacitating disease that is a constant threat to life (CHF, renal failure) ASA 5: a moribund patient not expected to survive 24 hrs. (ruptured aneurysm) ASA 6: a declared brain patient whose organs are being harvested. For emergent operations, add the letter E after the classification Grade 3 Sedation Plan: Analgesia, Amnesia, Plan communicated to team members, Discussed options with patient/fam, Discussed risks with patient/fam Note The patient is an appropriate candidate to undergo the planned procedure, sedation, and anesthesia. The patient immediately re-assessed prior to indication. JORDAN RAMIREZ MD Apr 19, 2018 17:56
--- NOTE | 2018-04-19 17:56 | Progress Note-Pre Operative ---
Pre-Operative Progress Note H&P Reviewed The H&P was reviewed, patient examined and no changes noted. Date Seen by Provider: Apr 19, 2018 Time Seen by Provider: 17:55 Date H&P Reviewed: Apr 19, 2018 Time H&P Reviewed: 17:55 Pre-Operative Diagnosis: dysphagia, esoph FB, stricture JORDAN RAMIREZ MD Apr 19, 2018 17:56
--- NOTE | 2018-04-19 19:10 | HISTORY AND PHYSICAL ---
DATE OF SERVICE: ATTENDING PRIMARY CARE PHYSICIAN: Dr. Lisy Leon. HISTORY OF PRESENT ILLNESS: The patient is a 57-year-old male who presented to the Emergency Department with dysphagia. He states that he has had this issue before and he has a known esophageal stricture requiring an EGD and dilatation in the past. He reports that he ate a pork chop last night and since that time, he has had a significant dysphagia and states that even trying to take in small amounts of water will not go down and causes pressure in the substernal region. He does not report any cough or sputum production. He is on Protonix for the history of gastroesophageal reflux disease as well as peptic ulcer disease. PAST MEDICAL HISTORY: Gastroesophageal reflux disease and esophageal stricture, noninsulin dependent diabetes, Crohn's disease. PAST SURGICAL HISTORY: Partial colectomy esophageal dilatation. ALLERGIES: No known drug allergies. MEDICATIONS: Protonix 40 mg daily. SOCIAL HISTORY: Cigar smoke, social alcohol. FAMILY HISTORY: Noncontributory. VITAL SIGNS: Temperature 97.9, blood pressure 163/85, pulse 68, respirations 18, pulse ox 95% on room air. REVIEW OF SYSTEMS: This is a well-nourished male, currently in no acute distress. He is not experiencing any shortness of breath or difficulty breathing. He is also not having any cough or sputum production. He continues to feel some substernal pressure sensation; however, uses a suction by bedside. No hematemesis, no coffee ground emesis. No diarrhea, constipation, no red blood per rectum, no dark tarry stools. No fever, chills, no recent inadvertent weight loss. All other review of systems negative. PHYSICAL EXAMINATION: CHEST: Clear. Good breath sounds bilaterally. HEART: Regular, no murmurs. EXTREMITIES: No lower extremity edema, negative Homans sign. HEENT: No scleral icterus. NECK: No cervical lymphadenopathy. ABDOMEN: Soft, nondistended. There is mild discomfort in the epigastric region upon deep palpation. SKIN: Warm, dry. LABORATORY DATA: WBC 7.5, hemoglobin 14.8, hematocrit 39, platelets 173, total bilirubin 1.7, AST 36, ALT 47. ASSESSMENT AND PLAN: A 57-year-old male with dysphagia secondary to esophageal stricture and esophageal foreign body. At this time, he is stable and we will proceed with conservative management in hopes of allowing the food foreign body to reduce on its own. We will continue with glucagon, Reglan as well as Ativan p.r.n. for relaxation. On this admission, we will also proceed with esophagogastroduodenoscopy as well as biopsies of the gastroesophageal junction to rule out Falcon's esophagus and of the antrum to rule out H. pylori. We will also proceed with a balloon dilatation. Job ID: [id number] DocumentID: [id number] Dictated Date: 04/19/2018 17:55:29 Sed Special Education Teacher Date: 04/19/2018 19:09:11 Dictated By: JORDAN RAMIREZ MD [facility]
[2018-04-19 19:40] VITALS: BP_SYST 138; BP_SYST 144; BP_DIAS 78; BP_DIAS 98
[2018-04-19] MEDS ORDERED: GLUCAGON EMERGENCY 1 MG/KIT IJ NR (20:00)
[2018-04-19] MEDS: LORazepam INJ 2 MG/ML (ATIVAN) VIAL IVP SCH (20:08)
[2018-04-20] VITALS: BP 127/54
[2018-04-20] MEDS: D5 1/2 NS 1000 ML IV SOLUTION 1,000 ML IV SCH ×2 (00:22→08:28)
[2018-04-20] MEDS: LORazepam INJ 2 MG/ML (ATIVAN) VIAL IVP SCH ×3 (03:22→13:14)
[2018-04-20 04:00] VITALS: BP 153/74
[2018-04-20] MEDS: METOCLOPRAMIDE INJ 10 MG/2 ML (REGLAN) IVP SCH ×2 (05:05→13:09)
[2018-04-20] MEDS: PANTOPRAZOLE 40 MG (PROTONIX) VIAL IV SCH (08:28)
[2018-04-20 08:56] VITALS: BP 136/76
[2018-04-20] MEDS ORDERED: LIDOCAINE JELLY 2% (XYLOCAINE) 5 ML TUBE ONE (09:51)
[2018-04-20] MEDS ORDERED: HURRICAINE EXT TUBE (BENZOCAINE) ONE (09:51)
[2018-04-20] MEDS ORDERED: fentaNYL INJECTION 100 MCG/2 ML AMP ONE ×2 (09:51→09:53)
[2018-04-20] MEDS ORDERED: MIDAZOLAM 5 MG/5 ML (VERSED) VIAL ONE ×2 (09:51→10:55)
[2018-04-20] MEDS ORDERED: NS IV 500 ML 500 ML ONE ×2 (09:52→10:49)
[2018-04-20] MEDS: NS IV 500 ML 500 ML IV PRN ×2 (10:20→11:20)
[2018-04-20] MEDS: MIDAZOLAM 2 MG/2 ML (VERSED) VIAL IVP ONE (10:50)
--- NOTE | 2018-04-20 11:56 | Progress Note-Post Operative ---
Post-Operative Progess Note Surgeon (s)/Nematologist (s) Surgeon JORDAN RAMIREZ MD Nematologist: none Pre-Operative Diagnosis dysphagia, esoph FB, stricture Post-Operative Diagnosis esphageal FB, distal esophageal stricture, reflux esophagitis(grade 3), small HH(2cm), mild-mod gastritis. Procedure & Operative Findings Date of Procedure 04/20/18 Procedure Performed/Findings EGD with removal foreign body, bx, balloon dilatation. Anesthesia Type CS Estimated Blood Loss Estimated blood loss (mL): minimal Specimens/Packing Specimens Removed GE jxn, antrum JORDAN RAMIREZ MD Apr 20, 2018 11:56 am
--- NOTE | 2018-04-20 11:59 | Discharge Inst-Surgical ---
D/C Lap Instructions-ASHLEY Follow Up Appt in 4 weeks Activity as tolerate clear liquid diet for 2-3 days then advance to soft diet 2-3 days then bland PUD diet 2 weeks. Avoid Alcohol, Caffeine, Spicy [place] and Acid foods. Drink 64 fluid oz or more of fluids per day. Symptoms to Report: Fever over 101 degree F, Nausea/Vomiting If any problems/questions: Contact your physician or go to Emergency Room JORDAN RAMIREZ MD Apr 20, 2018 11:59 am
[2018-04-20] MEDS ORDERED: LIDOCAINE JELLY 2% (XYLOCAINE) 5 ML TUBE MM PRN (12:30)
[2018-04-20] MEDS ORDERED: HURRICAINE EXT TUBE (BENZOCAINE) XX PRN (12:30)
[2018-04-20] MEDS ORDERED: fentaNYL INJECTION 100 MCG/2 ML AMP IVP ONE (12:30)
[2018-04-20 12:50] VITALS: BP 139/83
--- NOTE | 2018-04-20 13:42 | OPERATIVE REPORT ---
DATE OF SERVICE: 04/20/2018 ATTENDING PRIMARY CARE PHYSICIAN: Dr. Lisy Leon. PREOPERATIVE DIAGNOSES: Dysphagia and esophageal foreign body with history of stricture. POSTOPERATIVE DIAGNOSES: Reflux esophagitis grade III with a distal esophageal stricture and esophageal foreign body. Small hiatal hernia approximately 1.5 cm in size, mild to moderate gastritis. No distal obstructions. PROCEDURE: EGD with removal of foreign body, EGD and dilatation. SURGEON: Jordan Ramirez MD ANESTHESIA: Conscious sedation. ESTIMATED BLOOD LOSS: Minimal. FINDINGS: Esophageal foreign body, which was removed in a piecemeal fashion. Reflux esophagitis grade III distal esophageal stricture, small hiatal hernia approximately 1.5 cm in size, mild to moderate gastritis. No gastric ulcers or polyps. Pylorus and duodenum appeared normal with no distal obstructions. DISPOSITION: The patient tolerated the procedure well. INDICATIONS: The patient is a 57-year-old male who presented with dysphagia after eating lean meats. He states that he felt substernal pressure sensation and afterwards was unable to swallow liquids or his saliva. He states that he has had this before in the past. He has been diagnosed with a previous esophageal stricture and underwent a balloon dilatation with the last one done approximately 3 years ago. He is currently on Protonix 40 mg daily. DESCRIPTION OF PROCEDURE: The patient was brought to the endoscopy suite, laid in the left lateral decubitus position. After adequate IV pain sedative medications and conscious sedation anesthesia, the mouthpiece was applied. The endoscope was placed in the mouth, visualizing the pharynx and hypopharyngeal region. Vocal cords, epiglottis and vallecula identified and appeared to be normal. The endoscope was then gently intubated at the esophageal opening and esophagus insufflated. The endoscope was then advanced through the first, second and third portion of the esophagus. An esophageal foreign body was identified, which appeared to be partially digested food substance. This was removed in piecemeal fashion using a snare with visualization of good hemostasis. Once the foreign body was small enough this did go distally into the stomach. Distal esophageal stricture was identified as well as significant reflux esophagitis, grade III. A biopsy was taken with forceps with visualization of good hemostasis. The endoscope was then advanced into the stomach and endoscope retroflexed, visualizing a small hiatal hernia approximately 1.5 cm in size. There was a mild to moderate gastritis. There were no formal ulcerations, polyps or any neoplasms. A biopsy was taken of the stomach antrum for H. pylori with visualization of good hemostasis. The endoscope was then advanced to the pylorus and the first and second portion of the duodenum, which appeared normal with no distal obstructions. We then proceeded with a balloon dilatation of esophageal stricture. A balloon dilator was placed in the stomach and pulled back to the area of the stricture. We first proceeded to 2 atmospheres of pressure or 18 mm in diameter with no resistance. We then proceeded to 4 atmospheres of pressure or 19 mm in diameter with mild resistance. We then proceeded 5 atmospheres of pressure which equates to approximately 19.5 mm in diameter and there was moderate resistance and we left this in place for approximately 60 seconds. The balloon was desufflated and removed with visualization of good hemostasis as well as no mucosal tears. The endoscope was then slowly withdrawn while taking a second look and suctioning residual air with no additional findings. The patient tolerated the procedure well. We will start a clear liquid diet. Once he is tolerating clears, he may be discharged home. We will recommend a clear liquid diet for the next 48 to 72 hours and slowly advance as tolerated and to eat slowly and to chew thoroughly. If he has recurrent issues with gastroesophageal reflux disease, heartburn, acid indigestion or dysphagia. We will have him follow up for further graded dilatation. Job ID: [id number] DocumentID: [id number] Dictated Date: 04/20/2018 11:48:37 Assembler Motor Vehicle Date: 04/20/2018 13:42:01 Dictated By: JORDAN RAMIREZ MD
[2018-04-20 15:25] VITALS: BP 128/60
[2018-04-20 16:00] VITALS: BP 128/60
--- OUTSIDE RECORDS SUMMARY | 2018-04-24 15:26 | XMS REPORT | Continuity of Care Document ---
Author Author [facility] Address Unknown Phone Unavailable Allergies Active Description Code Type Severity Reaction Onset Reported/Identified Relationship to Patient Clinical Status Yes NO KNOWN DRUG ALLERGIES UNKNOWN NO KNOWN DRUG ALLERG Yes No Known Drug Allergies [id number] Drug Allergy Unknown N/A 02/10/2010 Yes No Known Drug Allergies [id number] Drug Allergy Unknown N/A 04/07/2018 Medications Medication [...] Pulido Ot 607.84 09/29/2014 DEVYN LEMUS L OPHTHALMIC NURSE Ot 305.1 09/29/2014 BAIMADEVYN L OPHTHALMIC NURSE Ot 426.4 09/29/2014 BAIMA DEVYN L OPHTHALMIC NURSE Ot 780.57 09/29/2014 DEVYN LEMUS L OPHTHALMIC NURSE Ot 785.1 10/07/2014 TALYA LARSON, KRISTAL Chavez [...] 12/04/2014 FUENTES LARSON, KELSIE Enamorado Ot V06.1 [id number], COMBINED [ 08/04/2015 Ot 780.79 08/04/2015 Ot 786.2 08/04/2015 Ot 780.79 08/04/2015 Ot 786.09 08/04/2015 YUMI LARSON, CHAYA Pulido Ot 600.00 08/04/2015 YUMI LARSON, CHAYA Pulido Ot 607.84 08/04/2015 TALYA LARSON, KIRSTAL L Ot 785.1 08/04/2015 TALYA LARSON, KRISTAL L Ot 785.2 08/04/2015 TALYA LARSON, KRISTAL L Ot 786.50 08/04/2015 BAIMA, DEVYN L OPHTHALMIC NURSE Ot 305.1 08/04/2015 BAIMA DEVYN L OPHTHALMIC NURSE Ot 426.4 08/04/2015 BAIMA DEVYN L OPHTHALMIC NURSE Ot 780.57 08/04/2015 BAIINA DEVYN L OPHTHALMIC NURSE Ot 785.1 08/18/2015 CHAYA EASON MD Ot [...] L Ot 786.50 11/08/2015 MARIAH DEVYN L OPHTHALMIC NURSE Ot 305.1 11/08/2015 MARIAH DEVYN L OPHTHALMIC NURSE Ot 426.4 11/08/2015 BAIMA, DEVYN L OPHTHALMIC NURSE Ot 780.57 11/08/2015 MARIAH DEVYN L OPHTHALMIC NURSE Ot 785.1 11/08/2015 CHAYA EASON MD Ot N40.0 11/08/2015 YUMI LARSON, CHAYA Tess Ot N52.9 11/23/2015 BAIMA, DEVYN L OPHTHALMIC NURSE Ot G47.33 11/23/2015 BAIMA, DEVYN L OPHTHALMIC NURSE Ot I45.19 11/23/2015 BAIMA, DEVYN L OPHTHALMIC NURSE Ot R00.2 11/23/2015 BAIMA, DEVYN L OPHTHALMIC NURSE Ot R06.09 11/23/2015 BAIMA, DEVYN L OPHTHALMIC NURSE Ot R07.9 11/23/2015 BAIMA, DEVYN L OPHTHALMIC NURSE Ot Z72.0 11/24/2015 Ot 780.79 11/24/2015 Ot 786.2 11/24/2015 Ot 780.79 11/24/2015 Ot 786.09 11/24/2015 YUMI LARSON, CHAYA Tess Ot 600.00 11/24/2015 YUMI LARSON, CHAYA Tess Ot 607.84 11/24/2015 TALYA LARSON, KRISTAL L Ot 785.1 11/24/2015 TALYA LARSON, KRISTAL L Ot 785.2 11/24/2015 TALYA LARSON, KRISTAL L Ot 786.50 11/24/2015 BAIMA, DEVYN L OPHTHALMIC NURSE Ot 305.1 11/24/2015 BAIMA, DEVYN L OPHTHALMIC NURSE Ot 426.4 11/24/2015 BAIMA, DEVYN L OPHTHALMIC NURSE Ot 780.57 11/24/2015 BAIMA, DEVYN L OPHTHALMIC NURSE Ot 785.1 11/24/2015 YUMI LARSON, CHAYA Pulido Ot N40.0 11/24/2015 YUMI LARSON, CHAYA A Ot N52.9 11/24/2015 BAIMA, DEVYN L OPHTHALMIC NURSE Ot G47.33 11/24/2015 BAIMA, DEVYN L OPHTHALMIC NURSE Ot I45.19 11/24/2015 BAIMA, DEVYN L OPHTHALMIC NURSE Ot R00.2 11/24/2015 BAIMA, DEVYN L OPHTHALMIC NURSE Ot R06.09 11/24/2015 BAIMA, DEVYN L OPHTHALMIC NURSE Ot R07.9 11/24/2015 BAIMA, DEVYN L OPHTHALMIC NURSE Ot Z72.0 11/25/2015 BAIMA, DEVYN L OPHTHALMIC NURSE Ot G47.33 11/25/2015 BAIMA, DEVYN L OPHTHALMIC NURSE Ot I45.19 11/25/2015 BAIMA, DEVYN L OPHTHALMIC NURSE Ot R00.2 11/25/2015 BAIMA, DEVYN L OPHTHALMIC NURSE Ot R06.09 11/25/2015 BAIMA, DEVYN L OPHTHALMIC NURSE Ot R07.9 11/25/2015 BAIMA, DEVYN L OPHTHALMIC NURSE Ot Z72.0 12/07/2015 BAIMA, DEVYN L OPHTHALMIC NURSE Ot G47.33 OBSTRUCTIVE SLEEP APNEA (ADULT) (PEDIATR 12/07/2015 BAIMA, DEVYN L OPHTHALMIC NURSE Ot I45.19 OTHER RIGHT BUNDLE-BRANCH BLOCK 12/07/2015 BAIMA, DEVYN L OPHTHALMIC NURSE Ot R00.2 PALPITATIONS 12/07/2015 BAIMA, DEVYN L OPHTHALMIC NURSE Ot R06.09 OTHER FORMS OF DYSPNEA 12/07/2015 BAIMA, DEVYN L OPHTHALMIC NURSE Ot R07.9 CHEST PAIN, UNSPECIFIED 12/07/2015 BAIMA, DEVYN L OPHTHALMIC NURSE Ot Z72.0 TOBACCO USE 12/30/2015 Ot 780.79 [...] CHEST PAIN NOS 12/30/2015 MARIAH, DEVYN L OPHTHALMIC NURSE Ot 305.1 TOBACCO USE DISORDER 12/30/2015 BAIMA, DEVYN L OPHTHALMIC NURSE Ot 426.4 RT BUNDLE BRANCH BLOCK 12/30/2015 ORALIAMA, DEVYN L OPHTHALMIC NURSE Ot 780.57 UNSPECIFIED SLEEP APNEA 12/30/2015 BAIMA, DEVYN L OPHTHALMIC NURSE Ot 785.1 PALPITATIONS 12/30/2015 CHAYA EASON MD Ot N40.0 ENLARGED PROSTATE WITHOUT LOWER URINARY 12/30/2015 CHAYA EASON MD Ot N52.9 MALE ERECTILE DYSFUNCTION, UNSPECIFIED 12/30/2015 BAIMA, DEVYN L OPHTHALMIC NURSE Ot G47.33 OBSTRUCTIVE SLEEP APNEA (ADULT) (PEDIATR 12/30/2015 BAIMA, DEVYN L OPHTHALMIC NURSE Ot I45.19 OTHER RIGHT BUNDLE-BRANCH BLOCK 12/30/2015 BAIMA, DEVYN L OPHTHALMIC NURSE Ot R00.2 PALPITATIONS 12/30/2015 BAIMA, DEVYN L OPHTHALMIC NURSE Ot R06.09 OTHER FORMS OF DYSPNEA 12/30/2015 BAIMA, DEVYN L OPHTHALMIC NURSE Ot R07.9 CHEST PAIN, UNSPECIFIED 12/30/2015 BAIMA, DEVYN L OPHTHALMIC NURSE Ot Z72.0 TOBACCO USE 12/30/2015 BAIMA, DEVYN L OPHTHALMIC NURSE Ot G47.33 OBSTRUCTIVE SLEEP APNEA (ADULT) (PEDIATR 12/30/2015 BAIMA, DEVYN L OPHTHALMIC NURSE Ot I45.19 OTHER RIGHT BUNDLE-BRANCH BLOCK 12/30/2015 BAIMA, DEVYN L OPHTHALMIC NURSE Ot R00.2 PALPITATIONS 12/30/2015 BAIMA, DEVYN L OPHTHALMIC NURSE Ot R06.09 OTHER FORMS OF DYSPNEA 12/30/2015 BAIMA, DEVYN L OPHTHALMIC NURSE Ot R07.9 CHEST PAIN, UNSPECIFIED 12/30/2015 BAIMA, DEVYN L OPHTHALMIC NURSE Ot Z72.0 TOBACCO USE 12/30/2015 MYRON LARSON, [...] R42 DIZZINESS AND GIDDINESS 02/01/2016 MICHEL GALEANA REHABILITATION TECHNICIAN Ot G47.33 OBSTRUCTIVE SLEEP APNEA (ADULT) (PEDIATR 02/07/2016 MICHEL GALEANA REHABILITATION TECHNICIAN Ot G47.33 OBSTRUCTIVE SLEEP APNEA (ADULT) (PEDIATR 02/07/2016 MICHEL GALEANA REHABILITATION TECHNICIAN Ot G47.33 OBSTRUCTIVE SLEEP APNEA (ADULT) (PEDIATR 10/01/2016 AZUL LARSON FACC, JAVIER FACP CCDS Ot G47.33 OBSTRUCTIVE SLEEP APNEA (ADULT) (PEDIATR 10/01/2016 AZUL LARSON FACC, JAVIER FACP CCDS Ot R01.2 OTHER CARDIAC SOUNDS 10/01/2016 AZUL LARSON FACC, JAVIER FACP CCDS Ot R06.09 OTHER FORMS OF DYSPNEA 10/01/2016 AZUL LARSON FACC, ALI FACP CCDS Ot Z72.0 TOBACCO USE 10/10/2016 MICHEL GALEANA REHABILITATION TECHNICIAN Ot R50.9 FEVER, UNSPECIFIED 10/10/2016 MICHEL GALEANA REHABILITATION TECHNICIAN Ot Z72.0 TOBACCO USE 10/17/2016 AZUL LARSON FACC, JAVIER FACP CCDS Ot G47.33 OBSTRUCTIVE SLEEP APNEA (ADULT) (PEDIATR 10/17/2016 AZUL LARSON FACC, ALI FACP CCDS Ot R01.2 OTHER CARDIAC SOUNDS 10/17/2016 AZUL LARSON FACC, ALI FACP CCDS Ot R06.09 OTHER FORMS OF DYSPNEA 10/17/2016 AZUL LARSON FAC, JAVIER SANTAMARIAP CCDS Ot Z72.0 TOBACCO USE 10/24/2016 MICHEL GALEANA REHABILITATION TECHNICIAN Ot R50.9 FEVER, UNSPECIFIED 10/24/2016 MICHEL GALEANA REHABILITATION TECHNICIAN Ot Z72.0 TOBACCO USE 01/19/2017 Vida Christopher 729.5 PAIN IN LIMB 01/19/2017 Vida Christopher M79.672 PAIN IN LEFT FOOT 11/26/2017 MICHEL GALEANA APRN Ot J30.9 ALLERGIC RHINITIS, UNSPECIFIED 11/26/2017 MICHEL GALEANA APRN Ot R05 COUGH 11/26/2017 MICHEL GALEANA REHABILITATION TECHNICIAN Ot R06.09 OTHER FORMS OF DYSPNEA 12/12/2017 [...] MD Ot I25.10 ATHSCL HEART DISEASE OF [place] CORONARY 12/17/2017 MARIA M RAMEY MD Ot [...] MD Ot I25.10 ATHSCL HEART DISEASE OF [place] CORONARY 12/20/2017 MARIA M RAMEY MD Ot [...] MD Ot I25.10 ATHSCL HEART DISEASE OF [place] CORONARY 12/20/2017 MARIA M RAMEY MD Ot [...] MD Ot E86.0 DEHYDRATION 12/23/2017 MARIA M RAEMY MD Ot E87.2 ACIDOSIS 12/23/2017 MARIA M RAMEY MD Ot F17.210 NICOTINE DEPENDENCE, CIGARETTES, UNCOMPL 12/23/2017 MARIA M RAMEY MD, Ot F17.290 NICOTINE DEPENDENCE, OTHER TOBACCO PRODU 12/23/2017 MARIA M RAMEY MD, Ot G47.30 SLEEP APNEA, UNSPECIFIED 12/23/2017 MARIA M RAMEY MD, Ot I25.10 ATHSCL HEART DISEASE OF [place] CORONARY 12/23/2017 MARIA M RAMEY MD Ot [...] MD Ot I25.10 ATHSCL HEART DISEASE OF [place] CORONARY 12/25/2017 MARIA M RAMEY MD Ot [...] CHEST PAIN NOS 04/07/2018 BAIMA, DEVYN L OPHTHALMIC NURSE Ot 305.1 TOBACCO USE DISORDER 04/07/2018 BAIMA, DEVYN L OPHTHALMIC NURSE Ot 426.4 RT BUNDLE BRANCH BLOCK 04/07/2018 BAIMA, DEVYN L OPHTHALMIC NURSE Ot 780.57 UNSPECIFIED SLEEP APNEA 04/07/2018 BAIMA, DEVYN L OPHTHALMIC NURSE Ot 785.1 PALPITATIONS 04/07/2018 YUMI LARSON, CHAYA Pulido Ot N40.0 ENLARGED PROSTATE WITHOUT LOWER URINARY 04/07/2018 YUMI LARSON, CHAYA A Ot N52.9 MALE ERECTILE DYSFUNCTION, UNSPECIFIED 04/07/2018 BAIMA, DEVYN L OPHTHALMIC NURSE Ot G47.33 OBSTRUCTIVE SLEEP APNEA (ADULT) (PEDIATR 04/07/2018 BAIMA, DEVYN L OPHTHALMIC NURSE Ot I45.19 OTHER RIGHT BUNDLE-BRANCH BLOCK 04/07/2018 BAIMA, DEVYN L OPHTHALMIC NURSE Ot R00.2 PALPITATIONS 04/07/2018 BAIMA, DEVYN L OPHTHALMIC NURSE Ot R06.09 OTHER FORMS OF DYSPNEA 04/07/2018 BAIMA, DEVYN L OPHTHALMIC NURSE Ot R07.9 CHEST PAIN, UNSPECIFIED 04/07/2018 BAIMA, DEVYN L OPHTHALMIC NURSE Ot Z72.0 TOBACCO USE 04/07/2018 BAIMA, DEVYN L OPHTHALMIC NURSE Ot G47.33 OBSTRUCTIVE SLEEP APNEA (ADULT) (PEDIATR 04/07/2018 BAIMA, DEVYN L OPHTHALMIC NURSE Ot I45.19 OTHER RIGHT BUNDLE-BRANCH BLOCK 04/07/2018 BAIMA, DEVYN L OPHTHALMIC NURSE Ot R00.2 PALPITATIONS 04/07/2018 BAIMA, DEVYN L OPHTHALMIC NURSE Ot R06.09 OTHER FORMS OF DYSPNEA 04/07/2018 BAIMA, DEVYN L OPHTHALMIC NURSE Ot R07.9 CHEST PAIN, UNSPECIFIED 04/07/2018 BAIMA, DEVYN L OPHTHALMIC NURSE Ot Z72.0 TOBACCO USE 04/07/2018 AZUL LARSON FACC, ALI FACP CCDS Ot G47.33 OBSTRUCTIVE SLEEP APNEA (ADULT) (PEDIATR 04/07/2018 AZUL LARSON FACC, ALI FACP CCDS Ot R01.2 OTHER CARDIAC SOUNDS 04/07/2018 AZUL LARSON [facility], JAVIER [facility] CCDS Ot R06.09 OTHER FORMS OF DYSPNEA 04/07/2018 AZUL LARSON FAC, JAVIER [facility] CCDS Ot Z72.0 TOBACCO USE 04/07/2018 MICHEL GALEANA Axel REHABILITATION TECHNICIAN Ot R50.9 FEVER, UNSPECIFIED 04/07/2018 LISSETTMAGALIS OLSONINE E REHABILITATION TECHNICIAN Ot Z72.0 TOBACCO USE 04/07/2018 MICHEL GALEANA REHABILITATION TECHNICIAN Ot J30.9 ALLERGIC RHINITIS, UNSPECIFIED 04/07/2018 MAGALIS GALEANAINE E REHABILITATION TECHNICIAN Ot R05 COUGH 04/07/2018 MICHEL GALEANA REHABILITATION TECHNICIAN Ot R06.09 OTHER FORMS OF DYSPNEA Procedures [...] 5-8.5 Urine-Protein 2+ Negative Urine-RBC 1-3/HPF Urine-Specific [place] >=1.030 1.000-1.030 Urine-WBC 2-5/HPF Urobilinogen 0.2 0.2-1.0 [...] Status Pt. Type Provider Facility Loc./Unit Complaint [id number] 11/11/2014 17:51:24 11/11/2014 23:59:59 CLS Outpatient Mark Anna [id number] 12/24/2017 15:46:00 12/24/2017 23:59:00 DIS Outpatient KRISTAL BABIN [id number] 12/14/2017 18:27:00 12/14/2017 22:42:00 DIS Outpatient [facility] [id number] 12/12/2017 14:54:00 12/12/2017 23:59:00 DIS Outpatient KRISTAL BABIN [id number] 06/13/2017 13:30:00 06/13/2017 23:59:00 DIS Outpatient KRISTAL BABIN [id number] 02/11/2017 19:10:00 02/11/2017 23:59:00 DIS Outpatient KRISTAL BABIN [id number] 01/19/2017 17:42:00 01/19/2017 23:59:00 DIS Outpatient Vida Christopher [id number] 12/06/2016 11:43:00 12/06/2016 23:59:00 DIS Outpatient KRISTAL BABIN [id number] 12/14/2017 19:19:07 Document Registration [id number] 12/14/2017 23:08:00 12/17/2017 17:10:00 DIS Outpatient TANVIR LARSON, MARIA M Burgess [facility] CATH ACUTE RENAL, DEHYDRATION,CARDIAC ISSUES [id number] 11/25/2017 08:36:00 11/25/2017 23:59:59 CLS Outpatient MICHEL GALEANA REHABILITATION TECHNICIAN [facility] RT J30.9 ALLERGIC RHINITIS [id number] 10/09/2016 16:07:00 10/09/2016 23:59:59 CLS Outpatient MICHEL GALEANA REHABILITATION TECHNICIAN [facility] RAD FEVER [id number] 09/28/2016 08:33:00 09/28/2016 23:59:59 CLS Outpatient AZUL LARSON FACC, JAVIER SANDY CCDS [facility] CARD CARDIAC MURMUR,EXERTIONAL DYSPNEA,SLEEP APNEA [id number] 01/31/2016 21:19:00 02/01/2016 06:26:00 DIS Outpatient MICHEL GALEANA APRN [facility] SLEEP SNORING,DAYTIME SLEEPINESS [id number] 01/06/2016 12:45:00 01/06/2016 15:00:00 DIS Emergency FUENTES LARSON, KELSIE D [facility] ER DIZZINESS [id number] 12/29/2015 21:46:00 12/30/2015 01:44:00 DIS Emergency MYRON LARSON, HALEIGH Vicente [facility] ER NAUSEA,VOMITING [id number] 11/24/2015 08:38:00 11/24/2015 23:59:59 CLS Outpatient DEVYN LEMUS OPHTHALMIC NURSE [facility] CARD CHEST PAIN, PALPITATIONS [id number] 11/08/2015 09:13:00 11/08/2015 23:59:59 CLS Outpatient DEVYN LEMUS L OPHTHALMIC NURSE [facility] LAB CHEST PAIN, EXERTIONAL DYSPNEA, PALPITATIONS [id number] 08/04/2015 16:49:00 08/04/2015 23:59:59 CLS Outpatient YUMI LARSON, CHAYA Puliod [facility] LAB ED [id number] 12/04/2014 22:10:00 12/04/2014 22:30:00 DIS Emergency FUENTES LARSON, KELSIE Enamorado [facility] ER RT FOOT INJ;STEPPED ON A SCREW [id number] 09/15/2014 14:26:00 09/15/2014 23:59:59 CLS Outpatient DEVYN LEMUS [facility] LAB PALPITATIONS,SLEEP APNEA,RBBB,TOBACCO ABUSE [id number] 08/26/2014 08:51:00 08/26/2014 23:59:59 CLS Outpatient TALYA LARSON, KRISTAL Chavez [facility] CARD [place], PALPITATIONS, CHEST PAIN [id number] 07/30/2014 10:06:00 07/30/2014 23:59:59 CLS Outpatient YUMI LARSON, CHAYA Pulido [facility] LAB BPH,ED [id number] 05/28/2012 11:56:00 Document Registration [id number] 05/02/2012 21:56:00 Document Registration [id number] 03/27/2011 10:58:00 Document Registration [id number] 02/15/2010 05:40:00 Document Registration [id number] 02/10/2010 08:09:00 Document Registration [id number] 01/19/2010 14:18:00 Document Registration [id number] 12/22/2009 06:38:00 Document Registration [id number] 04/07/2018 13:57:00 04/07/2018 15:23:00 DIS Emergency MOLLY TAYLOR [facility] ER HEAD INJ, BLEEDING
== END 2018-04-20 16:10 | disposition home or self-care (01) ==
LOC: EDUNIT# 13:37 → ER 13:38 → UNDOADMOB 15:12 → SDC 15:12 → 4TH 15:12 → UNDODISOB 04-20 16:10 → SDC 04-20 16:10
PROVIDERS: ATTEND Surgery
DX: T18.128A Food in esophagus causing other injury, initial encounter (principal); K22.2 Esophageal obstruction; K21.0 Gastro-esophageal reflux disease with esophagitis; K44.9 Diaphragmatic hernia without obstruction or gangrene; K29.70 Gastritis, unspecified, without bleeding; E11.9 Type 2 diabetes mellitus without complications; K50.90 Crohn's disease, unspecified, without complications
CPT/HCPCS: 36415; 80053; 85025; 88305; 96374; 96375

== ENCOUNTER → 2018-07-25 | Outpatient (CLI) | payer OTHER ==
[~2018-07-25] VITALS: Ht 190.5 cm; Wt 133.8 kg
[~2018-07-25] MED LIST changes: +PANT40TA3; +REGADENOSON 0.4 MG/5 ML SYR (LEXISCAN) IV ONE
[2018-07-25] MEDS: CATHETER FLUSH 10 ML SYR IV PRN ×2 (07:58→08:58)
[2018-07-25 08:56] VITALS: BP 131/70
== END ==
LOC: CARD 07:21
PROVIDERS: ATTEND Internal Medicine Cardiovascular Disease
DX: R55 Syncope and collapse (principal); E11.9 Type 2 diabetes mellitus without complications; G47.33 Obstructive sleep apnea (adult) (pediatric)
CPT/HCPCS: 78452; 93017; 93225; 93226

== ENCOUNTER → 2019-01-22 | Outpatient (CLI) | payer OTHER ==
[~2019-01-22] MED LIST changes: -REGADENOSON 0.4 MG/5 ML SYR (LEXISCAN) IV ONE
--- NOTE | 2019-01-22 12:02 | Diagnostic Imaging Report ---
INDICATION: Cough, Dyspnea COMPARISON: 12/17/2017 FINDINGS: Frontal and lateral views of the chest demonstrate normal heart size and pulmonary vascularity. The lungs are clear. There are no signs of infiltrate, pleural effusions or pneumothoraces. The visualized osseous structures show no acute abnormalities. IMPRESSION: 1. No acute process. No signs of infiltrates, effusions or pneumothoraces. Dictated by: Dictated on workstation # [id number]
== END ==
LOC: RAD 10:15
PROVIDERS: ATTEND Nurse Practitioner Family
DX: J98.4 Other disorders of lung (principal); E66.01 Morbid (severe) obesity due to excess calories; G47.33 Obstructive sleep apnea (adult) (pediatric); G47.10 Hypersomnia, unspecified; R05 Cough
CPT/HCPCS: 71046

== ENCOUNTER → 2019-02-09 | Outpatient (CLI) | payer OTHER ==
[~2019-02-09] MED LIST changes: +RT-ALBUTEROL SULF 2.5 MG/3 ML PRE-MIX VIAL INH ONE
== END ==
LOC: RT 07:46
PROVIDERS: ATTEND Nurse Practitioner Family
DX: R05 Cough (principal); R06.09 Other forms of dyspnea; J98.4 Other disorders of lung; G47.10 Hypersomnia, unspecified; E66.01 Morbid (severe) obesity due to excess calories; Z68.36 Body mass index [BMI] 36.0-36.9, adult
CPT/HCPCS: 94060; 94726; 94729

== ENCOUNTER 2019-11-30 21:59 | Emergency (ER) | payer OTHER ==
[~2019-11-30] VITALS: Ht 190 cm; Wt 122.0 kg
[~2019-11-30 21:59] MED LIST changes: -MECL-106 PO; +MECL-149 PO; -METO-387 PO; +MTP25TSR PO; -RT-ALBUTEROL SULF 2.5 MG/3 ML PRE-MIX VIAL INH ONE
--- OUTSIDE RECORDS SUMMARY | 2019-11-30 22:05 | XMS REPORT | Continuity of Care Document ---
Author Organization Unknown Address Unknown Phone Unavailable Allergies Active Description Code Type Severity Reaction Onset Reported/Identified Relationship to Patient Clinical Status Yes NO KNOWN DRUG ALLERGIES UNKNOWN NO KNOWN DRUG ALLERG Yes NO KNOWN DRUG ALLERGIES UNKNOWN UNKNOWN Yes No Known Drug Allergies [id number] Drug Allergy Unknown N/A 02/10/2010 Yes No Known Drug Allergies [id number] Drug Allergy Unknown N/A 04/07/2018 Medications Medication Packaging Start Date St op Date Route Dosage Sig FAMOTIDINE VIAL INJ 20 MG/2CC (PEPCID VIAL ) MG 12/14/2017 12/14/2017 ONCE&1913 ONDANSETRON VIAL INJ 4 MG/2CC (ZOFRAN 2CC VIAL) MG 12/14/2017 12/14/2017 ONCE&1913 LACTATED RINGERS 1000CC IV BAG INJ ml 12/14/2017 12/14/2017 ONCE&1913 PANTOPAZOLE VIAL INJ 40 MG (PROTONIX IV) MG 12/14/2017 12/14/2017 ONCE&1913 NORMAL SALINE 1000CC IV BAG INJ 0.9 % (NS 1000CC IV BAG) ml 12/14/2017 12/14/2017 ONCE&2055 INSULIN REGULAR HUMAN INJ 10 0 UNITS/CC (HUMULIN R / NOVOLIN R INSULIN) UNITS 12/14/2017 12/14/2017 ONCE&210 1 POTASSIUM CHLORIDE TAB 20 MEQ (K-DUR) MEQ 12/14/2017 12/14/2017 ONCE&2118 NORMAL SALINE 1000CC IV BAG INJ 0.9 % (NS 1000CC IV BAG) ml 12/14/2017 12/14/2017 ONCE&2159 SMZ/TMP DS TAB (SEPTRA DS) (Bactrim DS) TAB 02/12/2019 02/18/2019 BID&0800,2000 Problems Date Dx Coded Attending Type Code Diagnosis Diagnosed By 12/22/2009 Ot 530.10 ESO PHAGITIS NOS 12/22/2009 Ot 530.81 ESO PHAGEAL REFLUX 12/22/2009 Ot 530.10 ESO PHAGITIS NOS 12/22/2009 Ot 530.81 ESO PHAGEAL REFLUX 02/15/2010 Ot 603.9 03/27/2011 Ot 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 03/27/2011 Ot 397.0 TRIC USPID VALVE DISEASE 03/27/2011 Ot 424.0 MITR AL VALVE DISORDER 03/27/2011 Ot 426.4 RT B UNDLE BRANCH BLOCK 03/27/2011 Ot 429.3 CARD IOMEGALY 03/27/2011 Ot 780.4 DIZZ INESS AND GIDDINESS 03/27/2011 Ot 780.57 UNS PECIFIED SLEEP APNEA 03/27/2011 Ot 780.79 OTH MALAISE FATIGUE 03/27/2011 Ot 786.09 RES PIRATORY ABNORM NEC 03/27/2011 Ot V15.81 HX OF PAST NONCOMPLIANCE 03/27/2011 Ot V44.2 ILEO STOMY STATUS 03/27/2011 Ot V58.66 SHOAIB G-TERM (CURRENT) USE OF ASPIRIN 07/30/2014 Ot 603.9 07/30/2014 Ot 603.9 07/30/2014 Ot V72.63 07/30/2014 Ot V74.8 07/30/2014 Ot 780.79 07/30/2014 Ot 786.2 07/30/2014 Ot 780.79 07/30/2014 Ot 786.09 08/18/2014 CHAYA EASON MD Ot 600.0 0 08/18/2014 CHAYA EASON MD Ot 607.8 4 08/26/2014 Ot 603.9 08/26/2014 Ot 603.9 08/26/2014 Ot V72.63 08/26/2014 Ot V74.8 08/26/2014 Ot 780.79 08/26/2014 Ot 786.2 08/26/2014 Ot 780.79 08/26/2014 Ot 786.09 08/26/2014 CHAYA EASON MD Ot 600.0 0 08/26/2014 CHAYA EASON MD Ot 607.8 4 09/29/2014 DEVYN LEMUS WANT AD RECEIVER Ot 305.1 09/29/2014 DEVYN LEMUS WANT AD RECEIVER Ot 426.4 09/29/2014 DEVYN LEMUS WANT AD RECEIVER Ot 780.57 09/29/2014 DEVYN LEMUS WANT AD RECEIVER Ot 785.1 10/07/2014 TALYA LARSON, KRISTAL Chavez Ot 785.1 10/07/2014 TALYA LARSON, KRISTAL Chavez Ot 785.2 10/07/2014 TALYA LARSON, KRISTAL Chavez Ot 786.50 12/04/2014 KELSIE DILL MD Ot 892.0 OPEN WOUND OF FOOT 12/04/2014 KELSIE DILL MD Ot E000.8 OTHER EXTERNAL CAUSE STATUS 12/04/2014 KELSIE DILL MD Ot E849.0 ACCIDENT IN HOME 12/04/2014 KELSIE DILL MD Ot E920.8 ACC-CUTTING INSTRUM NEC 12/04/2014 KELSIE DILL MD Ot V06.1 [id number], COMBINED [ 12/04/2014 Ot 892.0 OPEN WOUND OF FOOT 12/04/2014 Ot E000.8 OTH ER EXTERNAL CAUSE STATUS 12/04/2014 Ot E849.0 ACC IDENT IN HOME 12/04/2014 Ot E920.8 ACC -CUTTING INSTRUM NEC 12/04/2014 Ot V06.1 [id number], COMBINED [ 08/04/2015 Ot 780.79 08/04/2015 Ot 786.2 08/04/2015 Ot 780.79 08/04/2015 Ot 786.09 08/04/2015 YUMI LARSON, CHAYA Pulido Ot 600.0 0 08/04/2015 CHAYA EASON MD Ot 607.8 4 08/04/2015 TALYA LARSON, KRISTAL Chavez Ot 785.1 08/04/2015 TALYA LARSON, KRISTAL Chavez Ot 785.2 08/04/2015 TALYA LARSON, KRISTAL Chavez Ot 786.50 08/04/2015 DEVYN LEMUS WANT AD RECEIVER Ot 305.1 08/04/2015 DEVYN LEMUS WANT AD RECEIVER Ot 426.4 08/04/2015 DEVYN LEMUS WANT AD RECEIVER Ot 780.57 08/04/2015 DEVYN LEMUS WANT AD RECEIVER Ot 785.1 08/18/2015 CHAYA EASON MD Ot N40.0 08/18/2015 CHAYA EASON MD Ot N52.9 11/08/2015 Ot 780.79 11/08/2015 Ot 786.2 11/08/2015 Ot 780.79 11/08/2015 Ot 786.09 11/08/2015 YUMI LARSON, CHAYA A Ot 600.0 0 11/08/2015 YUMI LARSON, CHAYA A Ot 607.8 4 11/08/2015 TALYA LARSON, KRISTAL L Ot 785.1 11/08/2015 TALYA LARSON, KRISTAL L Ot 785.2 11/08/2015 TALYA LARSON, KRISTAL L Ot 786.50 11/08/2015 BAIMA, DEVYN L WANT AD RECEIVER Ot 305.1 11/08/2015 BAIMA, DEVYN L WANT AD RECEIVER Ot 426.4 11/08/2015 BAIMA, DEVYN L WANT AD RECEIVER Ot 780.57 11/08/2015 BAIMA, DEVYN L WANT AD RECEIVER Ot 785.1 11/08/2015 YUMI LARSON, CHAYA A Ot N40.0 11/08/2015 YUMI LARSON, CHAYA A Ot N52.9 11/23/2015 BAIMA, DEVYN L WANT AD RECEIVER Ot G47.33 11/23/2015 BAIMA, DEVYN L WANT AD RECEIVER Ot I45.19 11/23/2015 BAIMA, DEVYN L WANT AD RECEIVER Ot R00.2 11/23/2015 BAIMA, DEVYN L WANT AD RECEIVER Ot R06.09 11/23/2015 BAIMA, DEVYN L WANT AD RECEIVER Ot R07.9 11/23/2015 BAIMA, DEVYN L WANT AD RECEIVER Ot Z72.0 11/24/2015 Ot 780.79 11/24/2015 Ot 786.2 11/24/2015 Ot 780.79 11/24/2015 Ot 786.09 11/24/2015 YUMI LARSON, CHAYA A Ot 600.0 0 11/24/2015 YUMI LARSON, CHAYA A Ot 607.8 4 11/24/2015 TALYA LARSON, KRISTAL L Ot 785.1 11/24/2015 TALYA LARSON, KRISTAL L Ot 785.2 11/24/2015 TALYA LARSON, KRISTAL L Ot 786.50 11/24/2015 BAIMA, DEVYN L WANT AD RECEIVER Ot 305.1 11/24/2015 BAIMA, DEVYN L WANT AD RECEIVER Ot 426.4 11/24/2015 BAIMA, DEVYN L WANT AD RECEIVER Ot 780.57 11/24/2015 BAIMA, DEVYN L WANT AD RECEIVER Ot 785.1 11/24/2015 YUMI LARSON, CHAYA Pulido Ot N40.0 11/24/2015 YUMI LARSON, CHAYA Pulido Ot N52.9 11/24/2015 BAIMA, DEVYN L WANT AD RECEIVER Ot G47.33 11/24/2015 BAIMA, DEVYN L WANT AD RECEIVER Ot I45.19 11/24/2015 BAIMA, DEVYN L WANT AD RECEIVER Ot R00.2 11/24/2015 BAIMA, DEVYN L WANT AD RECEIVER Ot R06.09 11/24/2015 BAIMA, DEVYN L WANT AD RECEIVER Ot R07.9 11/24/2015 BAIMA, DEVYN L WANT AD RECEIVER Ot Z72.0 11/25/2015 BAIMA, DEVYN L WANT AD RECEIVER Ot G47.33 11/25/2015 BAIMA, DEVYN L WANT AD RECEIVER Ot I45.19 11/25/2015 BAIMA, DEVYN L WANT AD RECEIVER Ot R00.2 11/25/2015 BAIMA, DEVYN L WANT AD RECEIVER Ot R06.09 11/25/2015 BAIMA, DEVYN L WANT AD RECEIVER Ot R07.9 11/25/2015 BAIMA, DEVYN L WANT AD RECEIVER Ot Z72.0 12/07/2015 BAIMA, DEVYN L WANT AD RECEIVER Ot G47.33 OBSTRUCTIVE SLEEP APNEA (ADULT) (PEDIATR 12/07/2015 BAIMA, DEVYN L WANT AD RECEIVER Ot I45.19 OTHER RIGHT BUNDLE-BRANCH BLOCK 12/07/2015 BAIMA, DEVYN L WANT AD RECEIVER Ot R00.2 PALPITATIONS 12/07/2015 BAIMA, DEVYN L WANT AD RECEIVER Ot R06.09 OTHER FORMS OF DYSPNEA 12/07/2015 BAIMA, DEVYN L WANT AD RECEIVER Ot R07.9 CHEST PAIN, UNSPECIFIED 12/07/2015 BAIMA, DEVYN L WANT AD RECEIVER Ot Z72.0 TOBACCO USE 12/30/2015 Ot 780.79 OTH MALAISE FATIGUE 12/30/2015 Ot 786.2 COUGH 12/30/2015 Ot 780.79 OTH MALAISE FATIGUE 12/30/2015 Ot 786.09 RES PIRATORY ABNORM NEC 12/30/2015 YUMI LARSON, CHAYA Pulido Ot 600.0 0 HYPERTROPHY (BENIGN) OF PROSTATE W/O URI 12/30/2015 YUMI LARSON, CHAYA Pulido Ot 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, ORGANIC ORIGN 12/30/2015 TALYA LARSON, KRISTAL Chavez Ot 785.1 PALPITATIONS 12/30/2015 TALYA LARSON, KRISTAL Chavez Ot 785.2 CARDIAC MURMURS NEC 12/30/2015 TALYA LARSON, KRISTAL Chavez Ot 786.50 CHEST PAIN NOS 12/30/2015 BAIMA, DEVYN L WANT AD RECEIVER Ot 305.1 TOBACCO USE DISORDER 12/30/2015 BAIMA, DEVYN L WANT AD RECEIVER Ot 426.4 RT BUNDLE BRANCH BLOCK 12/30/2015 BAIMA, DEVYN L WANT AD RECEIVER Ot 780.57 UNSPECIFIED SLEEP APNEA 12/30/2015 BAIMA, DEVYN L WANT AD RECEIVER Ot 785.1 PALPITATIONS 12/30/2015 YUMI LARSON, CHAYA Pulido Ot N40.0 ENLARGED PROSTATE WITHOUT LOWER URINARY 12/30/2015 YUMI LARSON, CHAYA Pulido Ot N52.9 MALE ERECTILE DYSFUNCTION, UNSPECIFIED 12/30/2015 BAIMA, DEVYN L WANT AD RECEIVER Ot G47.33 OBSTRUCTIVE SLEEP APNEA (ADULT) (PEDIATR 12/30/2015 BAIMA, DEVYN L WANT AD RECEIVER Ot I45.19 OTHER RIGHT BUNDLE-BRANCH BLOCK 12/30/2015 BAIMA, DEVYN L WANT AD RECEIVER Ot R00.2 PALPITATIONS 12/30/2015 BAIMA, DEVYN L WANT AD RECEIVER Ot R06.09 OTHER FORMS OF DYSPNEA 12/30/2015 BAIMA, DEVYN L WANT AD RECEIVER Ot R07.9 CHEST PAIN, UNSPECIFIED 12/30/2015 BAIMA, DEVYN L WANT AD RECEIVER Ot Z72.0 TOBACCO USE 12/30/2015 BAIMA, DEVYN L WANT AD RECEIVER Ot G47.33 OBSTRUCTIVE SLEEP APNEA (ADULT) (PEDIATR 12/30/2015 BAIMA, DEVYN L WANT AD RECEIVER Ot I45.19 OTHER RIGHT BUNDLE-BRANCH BLOCK 12/30/2015 BAIMA, DEVYN L WANT AD RECEIVER Ot R00.2 PALPITATIONS 12/30/2015 BAIMA, DEVYN L WANT AD RECEIVER Ot R06.09 OTHER FORMS OF DYSPNEA 12/30/2015 BAIMA, DEVYN L WANT AD RECEIVER Ot R07.9 CHEST PAIN, UNSPECIFIED 12/30/2015 BAIMA, DEVYN L WANT AD RECEIVER Ot Z72.0 TOBACCO USE 12/30/2015 MYORN LARSON, HALEIGH Vicente Ot F17.210 NICOTINE DEPENDENCE, CIGARETTES, UNCOMPL 12/30/2015 HALEIGH SANCHES MD Ot R11.2 NAUSEA WITH VOMITING, UNSPECIFIED 12/30/2015 HALEIGH SANCHES MD Ot R42 DIZZINESS AND GIDDINESS 12/30/2015 HALEIGH SANCHES MD Ot R74.8 ABNORMAL LEVELS OF OTHER SERUM ENZYMES 12/30/2015 Ot F17.210 NI COTINE DEPENDENCE, CIGARETTES, UNCOMPL 12/30/2015 Ot R11.2 NAUS EA WITH VOMITING, UNSPECIFIED 12/30/2015 Ot R42 DIZZIN ESS AND GIDDINESS 12/30/2015 Ot R74.8 ABNO RMAL LEVELS OF OTHER SERUM ENZYMES 12/30/2015 HALEIGH SANCHES MD Ot F17.210 NICOTINE DEPENDENCE, CIGARETTES, UNCOMPL 12/30/2015 HALEIGH SANCHES MD Ot R11.2 NAUSEA WITH VOMITING, UNSPECIFIED 12/30/2015 HALEIGH SANCHES MD Ot R42 DIZZINESS AND GIDDINESS 12/30/2015 HALEIGH SANCHES MD Ot R74.8 ABNORMAL LEVELS OF OTHER SERUM ENZYMES 01/06/2016 KELSIE DILL MD Ot R11.0 NAUSEA 01/06/2016 KELSIE DILL MD Ot R42 DIZZINESS AND GIDDINESS 01/06/2016 Ot R11.0 NAUSEA 01/06/2016 Ot R42 DIZZIN ESS AND GIDDINESS 01/10/2016 KELSIE DILL MD Ot R11.0 NAUSEA 01/10/2016 KELSIE DILL MD Ot R42 DIZZINESS AND GIDDINESS 01/26/2016 HALEIGH SANCHES MD Ot F17.210 NICOTINE DEPENDENCE, CIGARETTES, UNCOMPL 01/26/2016 HALEIGH SANCHES MD Ot R11.2 NAUSEA WITH VOMITING, UNSPECIFIED 01/26/2016 HALEIGH SANCHES MD Ot R42 DIZZINESS AND GIDDINESS 01/26/2016 HALEIGH SANCHES MD Ot R74.8 ABNORMAL LEVELS OF OTHER SERUM ENZYMES 01/27/2016 KELSIE DILL MD Ot R11.0 NAUSEA 01/27/2016 KELSIE DILL MD Ot R42 DIZZINESS AND GIDDINESS 02/01/2016 MICHEL GALEANA APRN Ot G47.33 OBSTRUCTIVE SLEEP APNEA (ADULT) (PEDIATR 02/01/2016 Ot G47.33 OBS TRUCTIVE SLEEP APNEA (ADULT) (PEDIATR 02/07/2016 MICHEL GALEANA JOGGLE PRESS OPERATOR Ot G47.33 OBSTRUCTIVE SLEEP APNEA (ADULT) (PEDIATR 02/07/2016 MICHEL GALEANA JOGGLE PRESS OPERATOR Ot G47.33 OBSTRUCTIVE SLEEP APNEA (ADULT) (PEDIATR 10/01/2016 AZUL MD FAC, ALI FACP CCDS Ot G47.33 OBSTRUCTIVE SLEEP APNEA (ADULT) (PEDIATR 10/01/2016 AZUL LARSON FAC, ALI FACP CCDS Ot R01.2 OTHER CARDIAC SOUNDS 10/01/2016 AZUL LARSON [facility], ALI FACP CCDS Ot R06.09 OTHER FORMS OF DYSPNEA 10/01/2016 AZUL LARSON [facility], ALI FACP CCDS Ot Z72.0 TOBACCO USE 10/10/2016 MICHEL GALEANA APRN Ot R50.9 FEVER, UNSPECIFIED 10/10/2016 MICHEL GALEANA JOGGLE PRESS OPERATOR Ot Z72.0 TOBACCO USE 10/17/2016 AZUL LARSON [facility], ALI FACP CCDS Ot G47.33 OBSTRUCTIVE SLEEP APNEA (ADULT) (PEDIATR 10/17/2016 AZUL LARSON [facility], ALI FACP CCDS Ot R01.2 OTHER CARDIAC SOUNDS 10/17/2016 AZUL LARSON [facility], ALI FACP CCDS Ot R06.09 OTHER FORMS OF DYSPNEA 10/17/2016 AZUL LARSON [facility], ALI FACP CCDS Ot Z72.0 TOBACCO USE 10/24/2016 MICHEL GALEANA APRN Ot R50.9 FEVER, UNSPECIFIED 10/24/2016 MICHEL GALEANA APRN Ot Z72.0 TOBACCO USE 01/19/2017 Vida Christopher 729.5 PAIN IN LIMB 01/19/2017 Vida Christopher M79.672 PAIN IN LEFT FOOT 04/30/2017 W 709.9 UNSP ECIFIED DISORDER OF SKIN AND SUBCUTANEOUS TISSUE 04/30/2017 W 995.3 AMMY RGY, UNSPECIFIED, NOT ELSEWHERE CLASSIFIED 04/30/2017 W P83.9 COND ITION OF THE INTEGUMENT SPECIFIC TO , UNSPECIFIED 04/30/2017 W T78.49XA O THER ALLERGY, INITIAL ENCOUNTER 06/13/2017 W 173.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, SITE UNSPECIFIED 06/13/2017 W 250.00 ALEENA BETES MELLITUS WITHOUT MENTION OF COMPLICATION, TYPE II OR UNSPECIFIED TYPE, NOT STATED UNCONTROLLED 06/13/2017 W 327.23 OBS TRUCTIVE SLEEP APNEA (ADULT) (PEDIATRIC) 06/13/2017 W 426.4 RIGH T BUNDLE BRANCH BLOCK 06/13/2017 W 530.81 ESO PHAGEAL REFLUX 06/13/2017 W 555.9 GEORGE ONAL ENTERITIS OF UNSPECIFIED SITE 06/13/2017 W 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 OF ORGANIC ORIGIN 06/13/2017 W 785.2 UNDI AGNOSED CARDIAC MURMURS 06/13/2017 W C44.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, UNSPECIFIED 06/13/2017 W E11.9 TYPE 2 DIABETES MELLITUS WITHOUT COMPLICATIONS 06/13/2017 W G47.33 OBS TRUCTIVE SLEEP APNEA (ADULT) (PEDIATRIC) 06/13/2017 W I45.10 UNS PECIFIED RIGHT BUNDLE-BRANCH BLOCK 06/13/2017 W K21.9 ANDI RO-ESOPHAGEAL REFLUX DISEASE WITHOUT ESOPHAGITIS 06/13/2017 W 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 HN'S DISEASE, UNSPECIFIED, WITHOUT COMPLICATIONS 06/13/2017 W N52.9 MALE ERECTILE DYSFUNCTION, UNSPECIFIED 06/13/2017 W R01.1 CARD IAC MURMUR, UNSPECIFIED 10/29/2017 A 530.3 STRI CTURE AND STENOSIS OF ESOPHAGUS 10/29/2017 A K22.2 ESOP HAGEAL OBSTRUCTION 11/17/2017 W 379.91 TANVIR N IN OR AROUND EYE 11/17/2017 W H53.149 SUAL DISCOMFORT, UNSPECIFIED 11/26/2017 MICHEL GALEANA APRN Ot J30.9 ALLERGIC RHINITIS, UNSPECIFIED 11/26/2017 MICHEL GALEANA APRN Ot R05 COUGH 11/26/2017 MICHEL GALEANA JOGGLE PRESS OPERATOR Ot R06.09 OTHER FORMS OF DYSPNEA 12/12/2017 KRISTAL BABIN V70.0 ROUTINE GENERAL MEDICAL EXAMINATION AT A HEALTH CARE FACILITY 12/12/2017 KRISTAL BABIN Z00.01 ENCOUNTER FOR GENERAL ADULT MEDICAL EXAMINATION WITH ABNORMAL FINDINGS 12/12/2017 KRISTAL BABIN W 250.00 DIABETES MELLITUS WITHOUT MENTION OF COMPLICATION, TYPE II OR UNSPECIFIED TYPE, NOT STATED UNCONTROLLED 12/12/2017 KRISTAL BABIN E11.9 TYPE 2 DIABETES MELLITUS WITHOUT COMPLICATIONS 12/12/2017 BABIN, KRISTAL A V70.0 ROUTINE GENERAL MEDICAL EXAMINATION AT A HEALTH CARE FACILITY 12/12/2017 ABBIN, KRISTAL A Z00.01 ENCOUNTER FOR GENERAL ADULT MEDICAL EXAMINATION WITH ABNORMAL FINDINGS 12/12/2017 W 250.00 ALEENA BETES MELLITUS WITHOUT MENTION OF COMPLICATION, TYPE II OR UNSPECIFIED TYPE, NOT STATED UNCONTROLLED 12/12/2017 W 780.57 UNS PECIFIED SLEEP APNEA 12/12/2017 W E11.9 TYPE 2 DIABETES MELLITUS WITHOUT COMPLICATIONS 12/12/2017 W G47.33 OBS TRUCTIVE SLEEP APNEA (ADULT) (PEDIATRIC) 12/12/2017 A V70.0 ROUT INE GENERAL MEDICAL EXAMINATION AT A HEALTH CARE FACILITY 12/12/2017 A Z00.01 ENC OUNTER FOR GENERAL ADULT MEDICAL EXAMINATION WITH ABNORMAL FINDINGS 12/12/2017 KRISTAL BABIN 250.00 DIABETES MELLITUS WITHOUT MENTION OF COMPLICATION, TYPE II OR UNSPECIFIED TYPE, NOT STATED UNCONTROLLED 12/12/2017 KRISTAL BABIN E11.9 [...] FUNCTION STUDY, CARDIOVASCULAR, UNSPECIFIED 12/14/2017 Van Richard E86.0 DEHYDRATION 12/14/2017 Van Richard K21.9 GASTRO-ESOPHAGEAL REFLUX DISEASE WITHOUT ESOPHAGITIS 12/14/2017 Van Richard N17.9 ACUTE KIDNEY FAILURE, UNSPECIFIED 12/14/2017 Van Richard R11.2 NAUSEA WITH VOMITING, UNSPECIFIED 12/14/2017 Van Richard R94.39 ABNORMAL RESULT OF OTHER CARDIOVASCULAR FUNCTION STUDY 12/17/2017 TANVIR LARSON, MARIA M Burgess Ot E05.90 THYROTOXICOSIS, UNSP WITHOUT THYROTOXIC 12/17/2017 MARIA M RAMEY MD Ot E11.9 TYPE 2 DIABETES MELLITUS WITHOUT COMPLIC 12/17/2017 MARIA M RAMEY MD Ot E55.9 VITAMIN D DEFICIENCY, UNSPECIFIED 12/17/2017 MARIA M RAMEY MD Ot E66.9 OBESITY, UNSPECIFIED 12/17/2017 MARIA M [...] MD Ot I25.10 ATHSCL HEART DISEASE OF [place] CORONARY 12/17/2017 MARIA M RAMEY MD Ot I45.10 UNSPECIFIED RIGHT BUNDLE-BRANCH BLOCK 12/17/2017 MARIA M RAMEY MD Ot I65.23 OCCLUSION AND STENOSIS OF BILATERAL ARCHER 12/17/2017 MARIA M RAMEY MD Ot K21.9 GASTRO-ESOPHAGEAL REFLUX DISEASE WITHOUT 12/17/2017 MARIA M RAMEY MD Ot K50.90 CROHN'S DISEASE, UNSPECIFIED, WITHOUT CO 12/17/2017 MARIA M RAMEY MD Ot K52.9 NONINFECTIVE GASTROENTERITIS AND COLITIS 12/17/2017 MARIA M RAMEY MD Ot N17.9 ACUTE KIDNEY FAILURE, UNSPECIFIED 12/17/2017 MARIA M RAMEY MD Ot R01.1 CARDIAC MURMUR, UNSPECIFIED 12/17/2017 MARIA M RAMEY MD Ot Z68.35 BODY MASS INDEX (BMI) 35.0-35.9, ADULT 12/17/2017 Ot E05.90 THY ROTOXICOSIS, UNSP WITHOUT THYROTOXIC 12/17/2017 Ot E11.9 TYPE 2 DIABETES MELLITUS WITHOUT COMPLIC 12/17/2017 Ot E55.9 LATA MIN D DEFICIENCY, UNSPECIFIED 12/17/2017 Ot E66.9 OBES ITY, UNSPECIFIED 12/17/2017 Ot E86.0 DEHY DRATION 12/17/2017 Ot E87.2 ACID OSIS 12/17/2017 Ot F17.210 NI COTINE DEPENDENCE, CIGARETTES, UNCOMPL 12/17/2017 Ot F17.290 NI COTINE DEPENDENCE, OTHER TOBACCO PRODU 12/17/2017 Ot G47.30 SLE EP APNEA, UNSPECIFIED 12/17/2017 Ot I25.10 ATH SCL HEART DISEASE OF [place] CORONARY 12/17/2017 Ot I45.10 UNS PECIFIED RIGHT BUNDLE-BRANCH BLOCK 12/17/2017 Ot I65.23 OCC LUSION AND STENOSIS OF BILATERAL ARCHER 12/17/2017 Ot K21.9 ANDI RO-ESOPHAGEAL REFLUX DISEASE WITHOUT 12/17/2017 Ot 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 HN'S DISEASE, UNSPECIFIED, WITHOUT CO 12/17/2017 Ot K52.9 AMNA NFECTIVE GASTROENTERITIS AND COLITIS 12/17/2017 Ot N17.9 ACUT E KIDNEY FAILURE, UNSPECIFIED 12/17/2017 Ot R01.1 CARD IAC MURMUR, UNSPECIFIED 12/17/2017 Ot Z68.35 BOD Y MASS INDEX (BMI) 35.0-35.9, ADULT 12/20/2017 MARIA [...] MD Ot I25.10 ATHSCL HEART DISEASE OF [place] CORONARY 12/20/2017 MARIA M RAMEY MD Ot [...] MD Ot I25.10 ATHSCL HEART DISEASE OF [place] CORONARY 12/20/2017 MARIA M RAMEY MD Ot I45.10 UNSPECIFIED RIGHT BUNDLE-BRANCH BLOCK 12/20/2017 MARIA M RAMEY MD Ot I65.23 OCCLUSION AND STENOSIS OF BILATERAL ARCHER 12/20/2017 MARIA M RAMEY MD Ot K21.9 GASTRO-ESOPHAGEAL REFLUX DISEASE WITHOUT 12/20/2017 MARIA M RAMEY MD Ot K50.90 CROHN'S DISEASE, UNSPECIFIED, WITHOUT CO 12/20/2017 MARIA M RAMEY MD Ot K52.9 NONINFECTIVE GASTROENTERITIS AND COLITIS 12/20/2017 MARIA M RAMEY MD, Ot N17.9 ACUTE KIDNEY FAILURE, UNSPECIFIED 12/20/2017 MARIA M RAMEY MD, Ot R01.1 CARDIAC MURMUR, UNSPECIFIED 12/20/2017 MARIA [...] DEPENDENCE, CIGARETTES, UNCOMPL 12/23/2017 MARIA M RAMEY MD Ot F17.290 NICOTINE DEPENDENCE, OTHER TOBACCO PRODU 12/23/2017 MARIA M RAMEY MD Ot G47.30 SLEEP APNEA, UNSPECIFIED 12/23/2017 MARIA M RAMEY MD Ot I25.10 ATHSCL HEART DISEASE OF [place] CORONARY 12/23/2017 MARIA M RAMEY MD Ot I45.10 UNSPECIFIED RIGHT BUNDLE-BRANCH BLOCK 12/23/2017 MARIA M RAMEY MD Ot I65.23 OCCLUSION AND STENOSIS OF BILATERAL ARCHER 12/23/2017 MARIA M RAMEY MD Ot K21.9 GASTRO-ESOPHAGEAL REFLUX DISEASE WITHOUT 12/23/2017 MARIA M RAMEY MD Ot K50.90 CROHN'S DISEASE, UNSPECIFIED, WITHOUT CO 12/23/2017 MARIA M RAMEY MD Ot K52.9 NONINFECTIVE GASTROENTERITIS AND COLITIS 12/23/2017 MARIA M RAMEY MD Ot N17.9 ACUTE KIDNEY FAILURE, UNSPECIFIED 12/23/2017 MARIA M RAMEY MD Ot R01.1 CARDIAC MURMUR, UNSPECIFIED 12/23/2017 MARIA M RAMEY MD Ot Z68.35 BODY MASS INDEX (BMI) 35.0-35.9, ADULT 12/24/2017 KRISTAL BABIN W 584.9 ACUTE KIDNEY FAILURE, UNSPECIFIED 12/24/2017 KRISTAL BBAIN W N17.9 ACUTE KIDNEY FAILURE, UNSPECIFIED 12/24/2017 KRISTAL BABIN W 584.9 ACUTE KIDNEY FAILURE, UNSPECIFIED 12/24/2017 KRISTAL BABIN W N17.9 ACUTE KIDNEY FAILURE, UNSPECIFIED 12/24/2017 A 276.51 DEH YDRATION 12/24/2017 W 584.9 ACUT E KIDNEY FAILURE, UNSPECIFIED 12/24/2017 A E86.0 DEHY DRATION 12/24/2017 W N17.9 ACUT E KIDNEY FAILURE, UNSPECIFIED 12/24/2017 KRISTAL BABIN W 584.9 ACUTE KIDNEY FAILURE, UNSPECIFIED 12/24/2017 KRISTAL BABIN W N17.9 ACUTE KIDNEY FAILURE, UNSPECIFIED 12/25/2017 MARIA [...] MD Ot I25.10 ATHSCL HEART DISEASE OF [place] CORONARY 12/25/2017 MARIA M RAMEY MD Ot I45.10 UNSPECIFIED RIGHT BUNDLE-BRANCH BLOCK 12/25/2017 TANVIR LARSON, MARIA M Burgess Ot I65.23 OCCLUSION AND STENOSIS OF BILATERAL ARCH[place] 12/25/2017 MARIA M RAMEY MD Ot K21.9 GASTRO-ESOPHAGEAL REFLUX DISEASE WITHOUT 12/25/2017 MARIA M RAMEY MD Ot K50.90 CROHN'S DISEASE, UNSPECIFIED, WITHOUT CO 12/25/2017 MARIA M RAMEY MD, Ot K52.9 NONINFECTIVE GASTROENTERITIS AND COLITIS 12/25/2017 MARIA M RAMEY MD Ot N17.9 ACUTE KIDNEY FAILURE, UNSPECIFIED 12/25/2017 MARIA M RAMEY MD Ot R01.1 CARDIAC MURMUR, UNSPECIFIED 12/25/2017 MARIA M RAMEY MD, Ot Z68.35 BODY MASS INDEX (BMI) 35.0-35.9, ADULT 02/03/2018 W 723.1 CERV ICALGIA 02/03/2018 W M54.2 CERV ICALGIA 04/07/2018 MOLLY TAYLOR Ot E11.9 TYPE 2 DIABETES MELLITUS WITHOUT COMPLIC 04/07/2018 MOLLY TAYLOR Ot F17.290 NICOTINE DEPENDENCE, OTHER TOBACCO PRODU 04/07/2018 MOLLY TAYLOR Ot R40.2142 COMA SCALE, EYES OPEN, SPONTANEOUS, EMR 04/07/2018 MOLLY TAYLOR Ot R40.2252 COMA SCALE, BEST VERBAL RESPONSE, ORIENT 04/07/2018 MOLLY TAYLOR Ot R40.2362 COMA SCALE, BEST MOTOR RESPONSE, OBEYS C 04/07/2018 MOLLY TAYLOR Ot S01.01XA LACERATION WITHOUT FOREIGN BODY OF SCALP 04/07/2018 MOLLY TAYLOR Ot S09.90XA UNSPECIFIED INJURY OF HEAD, INITIAL ENCO 04/07/2018 MOLLY TAYLOR Ot W22.01XA WALKED INTO WALL, INITIAL ENCOUNTER 04/07/2018 MOLLY TAYLOR Ot Z23 ENCOUNTER FOR IMMUNIZATION 04/07/2018 MOLLY TAYLOR Ot Z87.19 PERSONAL HISTORY OF OTHER DISEASES OF TH 04/07/2018 MOLLY TAYLOR Ot Z90.49 ACQUIRED ABSENCE OF OTHER SPECIFIED PART 04/07/2018 CHAYA EASON MD Ot 600.0 0 HYPERTROPHY (BENIGN) OF PROSTATE W/O URI 04/07/2018 CHAYA EASON MD A Ot 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, ORGANIC ORIGN 04/07/2018 TALYA LARSON, KRISTAL Chavez Ot 785.1 PALPITATIONS 04/07/2018 TALYA LARSON, KRISTAL L Ot 785.2 CARDIAC MURMURS NEC 04/07/2018 TALYA LARSON, KRISTAL Chavez Ot 786.50 CHEST PAIN NOS 04/07/2018 BAIMA, DEVYN L WANT AD RECEIVER Ot 305.1 TOBACCO USE DISORDER 04/07/2018 BAIMA, DEVYN L WANT AD RECEIVER Ot 426.4 RT BUNDLE BRANCH BLOCK 04/07/2018 BAIMA, DEVYN L WANT AD RECEIVER Ot 780.57 UNSPECIFIED SLEEP APNEA 04/07/2018 BAIMA, DEVYN L WANT AD RECEIVER Ot 785.1 PALPITATIONS 04/07/2018 YUMI LARSON, CHAYA Pulido Ot N40.0 ENLARGED PROSTATE WITHOUT LOWER URINARY 04/07/2018 YUMI LARSON, CHAYA Pulido Ot N52.9 MALE ERECTILE DYSFUNCTION, UNSPECIFIED 04/07/2018 BAIMA, DEVYN L WANT AD RECEIVER Ot G47.33 OBSTRUCTIVE SLEEP APNEA (ADULT) (PEDIATR 04/07/2018 BAIMA, DEVYN L WANT AD RECEIVER Ot I45.19 OTHER RIGHT BUNDLE-BRANCH BLOCK 04/07/2018 BAIMA, DEVYN L WANT AD RECEIVER Ot R00.2 PALPITATIONS 04/07/2018 BAIMA, DEVYN L WANT AD RECEIVER Ot R06.09 OTHER FORMS OF DYSPNEA 04/07/2018 BAIMA, DEVYN L WANT AD RECEIVER Ot R07.9 CHEST PAIN, UNSPECIFIED 04/07/2018 BAIMA, DEVYN L WANT AD RECEIVER Ot Z72.0 TOBACCO USE 04/07/2018 BAIMA, DEVYN L WANT AD RECEIVER Ot G47.33 OBSTRUCTIVE SLEEP APNEA (ADULT) (PEDIATR 04/07/2018 BAIMA, DEVYN L WANT AD RECEIVER Ot I45.19 OTHER RIGHT BUNDLE-BRANCH BLOCK 04/07/2018 BAIMA, DEVYN L WANT AD RECEIVER Ot R00.2 PALPITATIONS 04/07/2018 BAIMA, DEVYN L WANT AD RECEIVER Ot R06.09 OTHER FORMS OF DYSPNEA 04/07/2018 BAIMA, DEVYN L WANT AD RECEIVER Ot R07.9 CHEST PAIN, UNSPECIFIED 04/07/2018 BAIMA, DEVYN L WANT AD RECEIVER Ot Z72.0 TOBACCO USE 04/07/2018 AZUL LARSON FACC, JAVIER SANDY CCDS Ot G47.33 OBSTRUCTIVE SLEEP APNEA (ADULT) (PEDIATR 04/07/2018 AZUL LARSON FAC, ALI FAC CCDS Ot R01.2 OTHER CARDIAC SOUNDS 04/07/2018 AZUL LARSON FAC, ALI [facility] CCDS Ot R06.09 OTHER FORMS OF DYSPNEA 04/07/2018 AZUL LARSON FAC, ALI FACP CCDS Ot Z72.0 TOBACCO USE 04/07/2018 LISSETTMAGALIS OLSONINE E JOGGLE PRESS OPERATOR Ot R50.9 FEVER, UNSPECIFIED 04/07/2018 LISSETT MICHEL E JOGGLE PRESS OPERATOR Ot Z72.0 TOBACCO USE 04/07/2018 LISSETT MICHEL E JOGGLE PRESS OPERATOR Ot J30.9 ALLERGIC RHINITIS, UNSPECIFIED 04/07/2018 LISSETTMAGALIS OLSONINE E JOGGLE PRESS OPERATOR Ot R05 COUGH 04/07/2018 LISSETTMAGALIS OLSONINE E JOGGLE PRESS OPERATOR Ot R06.09 OTHER FORMS OF DYSPNEA 04/09/2018 MOLLY TAYLOR Ot E11.9 TYPE 2 DIABETES MELLITUS WITHOUT COMPLIC 04/09/2018 MOLLY TAYLOR Ot F17.290 NICOTINE DEPENDENCE, OTHER TOBACCO PRODU 04/09/2018 MOLLY TAYLOR Ot R40.2142 COMA SCALE, EYES OPEN, SPONTANEOUS, EMR 04/09/2018 MOLLY TAYLOR Ot R40.2252 COMA SCALE, BEST VERBAL RESPONSE, ORIENT 04/09/2018 MOLLY TAYLOR Ot R40.2362 COMA SCALE, BEST MOTOR RESPONSE, OBEYS C 04/09/2018 MOLLY TAYLOR Ot S01.01XA LACERATION WITHOUT FOREIGN BODY OF SCALP 04/09/2018 MOLLY TAYLOR Ot S09.90XA UNSPECIFIED INJURY OF HEAD, INITIAL ENCO 04/09/2018 MOLLY TAYLOR Ot W22.01XA WALKED INTO WALL, INITIAL ENCOUNTER 04/09/2018 MOLLY TAYLOR Ot Z23 ENCOUNTER FOR IMMUNIZATION 04/09/2018 MOLLY TAYLOR Ot Z87.19 PERSONAL HISTORY OF OTHER DISEASES OF TH 04/09/2018 MOLLY TAYLOR Ot Z90.49 ACQUIRED ABSENCE OF OTHER SPECIFIED PART 04/14/2018 KELSIE DILL MD Ot F17.200 NICOTINE DEPENDENCE, UNSPECIFIED, UNCOMP 04/14/2018 KELSIE DILL MD Ot S01.01XD LACERATION WITHOUT FOREIGN BODY OF SCALP 04/14/2018 KELSIE DILL MD Ot X58.XXXD EXPOSURE TO OTHER SPECIFIED FACTORS, SUB 04/16/2018 KELSIE DILL MD Ot F17.200 NICOTINE DEPENDENCE, UNSPECIFIED, UNCOMP 04/16/2018 KELSIE DILL MD, Ot S01.01XD LACERATION WITHOUT FOREIGN BODY OF SCALP 04/16/2018 KELSIE DILL MD Ot X58.XXXD EXPOSURE TO OTHER SPECIFIED FACTORS, SUB 04/20/2018 JORDAN RAMIREZ MD, Ot E11.9 TYPE 2 DIABETES MELLITUS WITHOUT COMPLIC 04/20/2018 JORDAN RAMIREZ MD Ot K21.0 GASTRO-ESOPHAGEAL REFLUX DISEASE WITH ES 04/20/2018 JORDAN RAMIREZ MD Ot K22.2 ESOPHAGEAL OBSTRUCTION 04/20/2018 JORDAN RAMIREZ MD Ot K29.70 GASTRITIS, UNSPECIFIED, WITHOUT BLEEDING 04/20/2018 JORDAN RAMIREZ MD Ot K44.9 DIAPHRAGMATIC HERNIA WITHOUT OBSTRUCTION 04/20/2018 JORDAN RAMIREZ MD Ot K50.90 CROHN'S DISEASE, UNSPECIFIED, WITHOUT CO 04/20/2018 JORDAN RAMIREZ MD Ot T18.12 8A FOOD IN ESOPHAGUS CAUSING OTHER INJURY, 04/24/2018 JORDAN RAMIREZ MD, Ot E11.9 TYPE 2 DIABETES MELLITUS WITHOUT COMPLIC 04/24/2018 JORDAN RAMIREZ MD Ot K21.0 GASTRO-ESOPHAGEAL REFLUX DISEASE WITH ES 04/24/2018 JORDAN RAMIREZ MD Ot K22.2 ESOPHAGEAL OBSTRUCTION 04/24/2018 JORDAN RAMIREZ MD Ot K29.70 GASTRITIS, UNSPECIFIED, WITHOUT BLEEDING 04/24/2018 JORDAN RAMIREZ MD Ot K44.9 DIAPHRAGMATIC HERNIA WITHOUT OBSTRUCTION 04/24/2018 JORDAN RAMIREZ MD Ot K50.90 CROHN'S DISEASE, UNSPECIFIED, WITHOUT CO 04/24/2018 JORDAN RAMIREZ MD Ot T18.12 8A FOOD IN ESOPHAGUS CAUSING OTHER INJURY, 04/30/2018 JORDAN RAMIREZ MD, Ot E11.9 TYPE 2 DIABETES MELLITUS WITHOUT COMPLIC 04/30/2018 JORDAN RAMIREZ MD Ot K21.0 GASTRO-ESOPHAGEAL REFLUX DISEASE WITH ES 04/30/2018 JORDAN RAMIREZ MD Ot K22.2 ESOPHAGEAL OBSTRUCTION 04/30/2018 JORDAN RAMIREZ MD Ot K29.70 GASTRITIS, UNSPECIFIED, WITHOUT BLEEDING 04/30/2018 JORDAN RAMIREZ MD Ot K44.9 DIAPHRAGMATIC HERNIA WITHOUT OBSTRUCTION 04/30/2018 JORDAN RAMIREZ MD, Ot K50.90 CROHN'S DISEASE, UNSPECIFIED, WITHOUT CO 04/30/2018 JORDAN RAMIREZ MD Ot T18.12 8A FOOD IN ESOPHAGUS CAUSING OTHER INJURY, 06/17/2018 KRISTAL BABIN W 250.00 DIABETES MELLITUS WITHOUT MENTION OF COMPLICATION, TYPE II OR UNSPECIFIED TYPE, NOT STATED UNCONTROLLED 06/17/2018 KRISTAL BABIN W 780.57 UNSPECIFIED SLEEP APNEA 06/17/2018 KRISTAL BABIN W E11.9 TYPE 2 DIABETES MELLITUS WITHOUT COMPLICATIONS 06/17/2018 KRISTAL BABIN G47.33 OBSTRUCTIVE SLEEP APNEA (ADULT) (PEDIATRIC) 06/17/2018 KRISTAL BABIN W 250.00 DIABETES MELLITUS WITHOUT MENTION OF COMPLICATION, TYPE II OR UNSPECIFIED TYPE, NOT STATED UNCONTROLLED 06/17/2018 KRISTAL BABIN W 780.57 UNSPECIFIED SLEEP APNEA 06/17/2018 KRISTAL BABIN E11.9 TYPE 2 DIABETES MELLITUS WITHOUT COMPLICATIONS 06/17/2018 KRISTAL BABIN G47.33 OBSTRUCTIVE SLEEP APNEA (ADULT) (PEDIATRIC) 06/17/2018 W 250.00 ALEENA BETES MELLITUS WITHOUT MENTION OF COMPLICATION, TYPE II OR UNSPECIFIED TYPE, NOT STATED UNCONTROLLED 06/17/2018 W 780.57 UNS PECIFIED SLEEP APNEA 06/17/2018 W E11.9 TYPE 2 DIABETES MELLITUS WITHOUT COMPLICATIONS 06/17/2018 W G47.33 OBS TRUCTIVE SLEEP APNEA (ADULT) (PEDIATRIC) 06/17/2018 KRISTAL BABIN W 250.00 DIABETES MELLITUS WITHOUT MENTION OF COMPLICATION, TYPE II OR UNSPECIFIED TYPE, NOT STATED UNCONTROLLED 06/17/2018 KRISTAL BABIN W 780.57 UNSPECIFIED SLEEP APNEA 06/17/2018 KRISTAL BABIN W E11.9 TYPE 2 DIABETES MELLITUS WITHOUT COMPLICATIONS 06/17/2018 KRISTAL BABIN G47.33 OBSTRUCTIVE SLEEP APNEA (ADULT) (PEDIATRIC) 07/16/2018 A 785.1 PALP ITATIONS 07/16/2018 A R00.2 PALP ITATIONS 07/23/2018 Ot 600.00 HYP ERTROPHY (BENIGN) OF PROSTATE W/O URI 07/23/2018 Ot 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, ORGANIC ORIGN 07/23/2018 Ot 785.1 PALP ITATIONS 07/23/2018 Ot 785.2 CARD IAC MURMURS NEC 07/23/[address] PAIN NOS 07/23/2018 Ot 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 07/23/2018 Ot 426.4 RT B UNDLE BRANCH BLOCK 07/23/2018 Ot 780.57 UNS PECIFIED SLEEP APNEA 07/23/2018 Ot 785.1 PALP ITATIONS 07/23/2018 Ot N40.0 ENLA RGED PROSTATE WITHOUT LOWER URINARY 07/23/2018 Ot N52.9 MALE ERECTILE DYSFUNCTION, UNSPECIFIED 07/23/2018 Ot G47.33 OBS TRUCTIVE SLEEP APNEA (ADULT) (PEDIATR 07/23/2018 Ot I45.19 OTH ER RIGHT BUNDLE-BRANCH BLOCK 07/23/2018 Ot R00.2 PALP ITATIONS 07/23/2018 Ot R06.09 OTH ER FORMS OF DYSPNEA 07/23/2018 Ot R07.9 CHES T PAIN, UNSPECIFIED 07/23/2018 Ot Z72.0 TOBA PRODUCTION HAND USE 07/23/2018 Ot G47.33 OBS TRUCTIVE SLEEP APNEA (ADULT) (PEDIATR 07/23/2018 Ot I45.19 OTH ER RIGHT BUNDLE-BRANCH BLOCK 07/23/2018 Ot R00.2 PALP ITATIONS 07/23/2018 Ot R06.09 OTH ER FORMS OF DYSPNEA 07/23/2018 Ot R07.9 CHES T PAIN, UNSPECIFIED 07/23/2018 Ot Z72.0 TOBA PRODUCTION HAND USE 07/23/2018 Ot G47.33 OBS TRUCTIVE SLEEP APNEA (ADULT) (PEDIATR 07/23/2018 Ot R01.2 OTHE R CARDIAC SOUNDS 07/23/2018 Ot R06.09 OTH ER FORMS OF DYSPNEA 07/23/2018 Ot Z72.0 TOBA PRODUCTION HAND USE 07/23/2018 Ot R50.9 FEVE R, UNSPECIFIED 07/23/2018 Ot Z72.0 TOBA PRODUCTION HAND USE 07/23/2018 Ot J30.9 AMMY RGIC RHINITIS, UNSPECIFIED 07/23/2018 Ot R05 COUGH 07/23/2018 Ot R06.09 OTH ER FORMS OF DYSPNEA 07/29/2018 AZUL LARSON FACC, JAVIER FACP CCDS Ot E11.9 TYPE 2 DIABETES MELLITUS WITHOUT COMPLIC 07/29/2018 AZUL LARSON FACC, JAVIER SANTAMARIAP CCDS Ot G47.33 OBSTRUCTIVE SLEEP APNEA (ADULT) (PEDIATR 07/29/2018 AZUL LARSON FACC, [facility] CCDS Ot R55 SYNCOPE AND COLLAPSE 12/04/2018 W 715.16 OST EOARTHROSIS, LOCALIZED, PRIMARY, INVOLVING LOWER LEG 12/04/2018 W M17.11 UNI LATERAL PRIMARY OSTEOARTHRITIS, RIGHT KNEE 02/01/2019 MICHEL GALEANA JOGGLE PRESS OPERATOR Ot E66.01 MORBID (SEVERE) OBESITY DUE TO EXCESS CA 02/01/2019 MICHEL GALEANA E JOGGLE PRESS OPERATOR Ot G47.10 HYPERSOMNIA, UNSPECIFIED 02/01/2019 MICHEL GALEANA JOGGLE PRESS OPERATOR Ot G47.33 OBSTRUCTIVE SLEEP APNEA (ADULT) (PEDIATR 02/01/2019 MICHEL GALEANA E JOGGLE PRESS OPERATOR Ot J98.4 OTHER DISORDERS OF LUNG 02/01/2019 MICHEL GALEANA E JOGGLE PRESS OPERATOR Ot R05 COUGH 02/01/2019 W 112.2 CAND IDIASIS OF OTHER UROGENITAL SITES 02/01/2019 W 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 02/11/2019 MICHEL GALEANA JOGGLE PRESS OPERATOR Ot E66.01 MORBID (SEVERE) OBESITY DUE TO EXCESS CA 02/11/2019 MICHEL GALEANA JOGGLE PRESS OPERATOR Ot G47.10 HYPERSOMNIA, UNSPECIFIED 02/11/2019 MICHEL GALEANA JOGGLE PRESS OPERATOR Ot G47.33 OBSTRUCTIVE SLEEP APNEA (ADULT) (PEDIATR 02/11/2019 MICHEL GALEANA JOGGLE PRESS OPERATOR Ot J98.4 OTHER DISORDERS OF LUNG 02/11/2019 MICHEL GALEANA JOGGLE PRESS OPERATOR Ot R05 COUGH 02/11/2019 FAUSTO URRUTIA W 686.0 9 OTHER PYODERMA 02/11/2019 FAUSTO URRUTIA W 703.8 OTHER SPECIFIED DISEASES OF NAIL 02/11/2019 FAUSTO URRUTIA W L08.8 9 OTH LOCAL INFECTIONS OF THE SKIN AND SUBCUTANEOUS TISSUE 02/11/2019 FAUSTO URRUTIA W L60.1 ONYCHOLYSIS 02/12/2019 MICHEL GALEANA JOGGLE PRESS OPERATOR Ot E66.01 MORBID (SEVERE) OBESITY DUE TO EXCESS CA 02/12/2019 MICHEL GALEANA JOGGLE PRESS OPERATOR Ot G47.10 HYPERSOMNIA, UNSPECIFIED 02/12/2019 [place] MICHEL Axel JOGGLE PRESS OPERATOR Ot J98.4 OTHER DISORDERS OF LUNG 02/12/2019 LISSETT, MICHEL Axel JOGGLE PRESS OPERATOR Ot R05 COUGH 02/12/2019 LISSETT, MICHEL E JOGGLE PRESS OPERATOR Ot R06.09 OTHER FORMS OF DYSPNEA 02/12/2019 [place] MICHEL Axel JOGGLE PRESS OPERATOR Ot Z68.36 BODY MASS INDEX (BMI) 36.0-36.9, ADULT 02/25/2019 [place] MICHEL Axel JOGGLE PRESS OPERATOR Ot E66.01 MORBID (SEVERE) OBESITY DUE TO EXCESS CA 02/25/2019 LIS[place]ET MICHEL E JOGGLE PRESS OPERATOR Ot G47.10 HYPERSOMNIA, UNSPECIFIED 02/25/2019 [place] MICHEL Axel JOGGLE PRESS OPERATOR Ot J98.4 OTHER DISORDERS OF LUNG 02/25/2019 L[place] MICHEL Axel JOGGLE PRESS OPERATOR Ot R05 COUGH 02/25/2019 L[place]T MICHEL E JOGGLE PRESS OPERATOR Ot R06.09 OTHER FORMS OF DYSPNEA 02/25/2019 LISSETT MICHEL Axel JOGGLE PRESS OPERATOR Ot Z68.36 BODY MASS INDEX (BMI) 36.0-36.9, ADULT 05/06/2019 KRISTAL BABIN 250.00 DIABETES MELLITUS WITHOUT MENTION OF COMPLICATION, TYPE II OR UNSPECIFIED TYPE, NOT STATED UNCONTROLLED 05/06/2019 KRISTAL BABIN E11.9 TYPE 2 DIABETES MELLITUS WITHOUT COMPLICATIONS 05/06/2019 KRISTAL BABIN V70.0 ROUTINE GENERAL MEDICAL EXAMINATION AT A HEALTH CARE FACILITY 05/06/2019 KRISTAL BABIN Z00.00 ENCOUNTER FOR GENERAL ADULT MEDICAL EXAMINATION WITHOUT ABNORMAL FINDINGS 05/06/2019 KRISTAL BABIN 250.00 DIABETES MELLITUS WITHOUT MENTION OF COMPLICATION, TYPE II OR UNSPECIFIED TYPE, NOT STATED UNCONTROLLED 05/06/2019 KRISTAL BABIN 788.41 URINARY FREQUENCY 05/06/2019 KRISTAL BABIN E11.9 TYPE 2 DIABETES MELLITUS WITHOUT COMPLICATIONS 05/06/2019 KRISTAL BABIN R35.0 FREQUENCY OF MICTURITION 05/06/2019 KRISTAL BABIN V70.0 ROUTINE GENERAL MEDICAL EXAMINATION AT A HEALTH CARE FACILITY 05/06/2019 KRISTAL BABIN V76.44 SCREENING FOR MALIGNANT NEOPLASMS OF PROSTATE 05/06/2019 KRISTAL BABIN Z00.00 ENCOUNTER FOR GENERAL ADULT MEDICAL EXAMINATION WITHOUT ABNORMAL FINDINGS 05/06/2019 KRISTAL BABIN W Z12.5 ENCOUNTER FOR SCREENING FOR MALIGNANT NEOPLASM OF PROSTATE 05/06/2019 KRISTAL BABIN W 788.41 URINARY FREQUENCY 05/06/2019 KRISTAL BABIN W R35.0 FREQUENCY OF MICTURITION 05/06/2019 KRISTAL BABIN W V70.0 ROUTINE GENERAL MEDICAL EXAMINATION AT A HEALTH CARE FACILITY 05/06/2019 KRISTAL BABIN W Z00.00 ENCOUNTER FOR GENERAL ADULT MEDICAL EXAMINATION WITHOUT ABNORMAL FINDINGS 05/06/2019 KRISTAL BABIN W 250.00 DIABETES MELLITUS WITHOUT MENTION OF COMPLICATION, TYPE II OR UNSPECIFIED TYPE, NOT STATED UNCONTROLLED 05/06/2019 KRISTAL BABIN W 788.41 URINARY FREQUENCY 05/06/2019 KRISTAL BABIN W E11.9 TYPE 2 DIABETES MELLITUS WITHOUT COMPLICATIONS 05/06/2019 KRISTAL BABIN W R35.0 FREQUENCY OF MICTURITION 05/06/2019 KRISTAL BABIN W V70.0 ROUTINE GENERAL MEDICAL EXAMINATION AT A HEALTH CARE FACILITY 05/06/2019 KRISTAL BABIN W V76.44 SCREENING FOR MALIGNANT NEOPLASMS OF PROSTATE 05/06/2019 KRISTAL BABIN W Z00.00 ENCOUNTER FOR GENERAL ADULT MEDICAL EXAMINATION WITHOUT ABNORMAL FINDINGS 05/06/2019 KRISTAL BABIN W Z12.5 ENCOUNTER FOR SCREENING FOR MALIGNANT NEOPLASM OF PROSTATE 05/06/2019 KRISTAL BABIN W 250.00 DIABETES MELLITUS WITHOUT MENTION OF COMPLICATION, TYPE II OR UNSPECIFIED TYPE, NOT STATED UNCONTROLLED 05/06/2019 KRISTAL BABIN W 788.41 URINARY FREQUENCY 05/06/2019 KRISTAL BABIN W E11.9 TYPE 2 DIABETES MELLITUS WITHOUT COMPLICATIONS 05/06/2019 KRISTAL BABIN W R35.0 FREQUENCY OF MICTURITION 05/06/2019 KRISTAL BABIN W V70.0 ROUTINE GENERAL MEDICAL EXAMINATION AT A HEALTH CARE FACILITY 05/06/2019 KRISTAL BABIN W V76.44 SCREENING FOR MALIGNANT NEOPLASMS OF PROSTATE 05/06/2019 KRISTAL BABIN W Z00.00 ENCOUNTER FOR GENERAL ADULT MEDICAL EXAMINATION WITHOUT ABNORMAL FINDINGS 05/06/2019 KRISTAL BABIN W Z12.5 ENCOUNTER FOR SCREENING FOR MALIGNANT NEOPLASM OF PROSTATE 05/06/2019 KRISTAL BABIN W 250.00 DIABETES MELLITUS WITHOUT MENTION OF COMPLICATION, TYPE II OR UNSPECIFIED TYPE, NOT STATED UNCONTROLLED 05/06/2019 MEGHAN BABINBONITA Flores 788.41 URINARY FREQUENCY 05/06/2019 MEGHAN BABINBONITA Flores E11.9 TYPE 2 DIABETES MELLITUS WITHOUT COMPLICATIONS 05/06/2019 BABINMEGHANKRISTAL W R35.0 FREQUENCY OF MICTURITION 05/06/2019 MEGHAN BABINBONITA Flores V70.0 ROUTINE GENERAL MEDICAL EXAMINATION AT A HEALTH CARE FACILITY 05/06/2019 BABINMEGHANKRISTAL W V76.44 SCREENING FOR MALIGNANT NEOPLASMS OF PROSTATE 05/06/2019 MEGHAN BABINBONITA Flores Z00.00 ENCOUNTER FOR GENERAL ADULT MEDICAL EXAMINATION WITHOUT ABNORMAL FINDINGS 05/06/2019 BABINMEGHANKRISTAL W Z12.5 ENCOUNTER FOR SCREENING FOR MALIGNANT NEOPLASM OF PROSTATE 05/06/2019 BABINMEGHANKRISTAL W 250.00 DIABETES MELLITUS WITHOUT MENTION OF COMPLICATION, TYPE II OR UNSPECIFIED TYPE, NOT STATED UNCONTROLLED 05/06/2019 BABINMEGHANKRISTAL W 788.41 URINARY FREQUENCY 05/06/2019 MEGHAN BABINBONITA Flores E11.9 TYPE 2 DIABETES MELLITUS WITHOUT COMPLICATIONS 05/06/2019 TALYA KRISTAL Flores R35.0 FREQUENCY OF MICTURITION 05/06/2019 BABINMEGHANKRISTAL W V70.0 ROUTINE GENERAL MEDICAL EXAMINATION AT A HEALTH CARE FACILITY 05/06/2019 BABINMEGHANKRISTAL W V76.44 SCREENING FOR MALIGNANT NEOPLASMS OF PROSTATE 05/06/2019 BABINMEGHANKRISTAL W Z00.00 ENCOUNTER FOR GENERAL ADULT MEDICAL EXAMINATION WITHOUT ABNORMAL FINDINGS 05/06/2019 BABINKRISTAL Mark Z12.5 ENCOUNTER FOR SCREENING FOR MALIGNANT NEOPLASM OF PROSTATE 05/09/2019 Antoni Blue 112.2 CANDIDIASIS OF OTHER UROGENITAL SITES 05/09/2019 Antoni Blue 112.2 CANDIDIASIS OF OTHER UROGENITAL SITES Procedures There is no data. Results Test Result Range Lipid Panel - 12/06/16 10:45 C/HDL 2.6 3.7-6.7 Cholesterol 129 mg/dL 100-240 HDL 50 mg/dL 30-85 LDL-Calculated 47 mg/dL 0-100 Trig 158 mg/dL 35-160 VLDL 32 mg/dL 0-42 Rheumatiod Factor, Quantitative - 19:20 Rheumatoid Factor, Quantitative <15 IU/ml 0-30 [...] 1.6-154.9 Troponin 1.340 Result verified by repeat analysis . ng/mL 0.000-0.400 Serum Ketone - 12/14/17 20:20 Serum Ketone Negative 0.00-0.00 Urinalysis - 12/14/17 21:22 Icotest Negative Negative Urine Casts Granular cast: 5-10/HPF Urine Crystals Amorphous material: moderate/HPF Urine Volume Urine Volume Sufficient (10mL) Urine-Appearance Slightly Cloudy Clear Urine-Bacteria Trace Urine-Bilirubin 1+ Negative Urine-Blood 1+ Negative Urine-Color [place] Colorless-[place] ow Urine-Epithelial Cells 0-5/HPF Urine-Glucose Trace Negative Urine-Ketones Negative Negative Urine-Leukocytes Negative Negative Urine-Mucus Trace Urine-Nitrite Positive Negative Urine-Other Urine Saved if Culture Need ed (48hrs from time of collection) Urine-pH 5.5 5-8.5 Urine-Protein 2+ Negative Urine-RBC 1-3/HPF Urine-Specific [place] >=1.030 1.000-1 .030 Urine-WBC 2-5/HPF Urobilinogen 0.2 0.2-1.0 Complete blood count (CBC) with automate d white blood cell (WBC) differential - 12/14/17 23:40 Blood leukocytes automated count (number/volume) 5.9 10*3/uL 4.3-11.0 Blood erythrocytes automated count (number/volume) 5.16 10*6/uL 4.35-5.85 Venous blood hemoglobin measurement (mass/volume) 16.4 g/dL 13.3-17.7 Blood hematocrit (volume fraction) 44 % 40-54 Automated erythrocyte mean corpuscular volume 85 [ foz_us] 80-99 Automated erythrocyte mean corpuscular h emoglobin (mass per erythrocyte) 32 pg 25-34 Automated erythrocyte mean corpuscular h emoglobin concentration measurement (mass/volume) 37 g/dL 32-36 Automated erythrocyte distribution width ratio 12. 9 % 10.0- 14.5 Automated blood platelet count (count/volume) 208 10*3/uL [...] 10*3 1.0-4.0 Blood monocytes automated count (number/volume) 0. 8 10*3 0.0-1.0 Automated eosinophil count 0.4 10*3/uL 0 .0-0.3 Automated blood basophil count (count/volume) 0.0 10*3/uL 0.0-0.1 Comprehensive metabolic panel - 12/14/17 23:40 Serum or plasma sodium measurement (moles/volume) 133 mmol/L 135-145 Serum or plasma potassium measurement (moles/volume) 3.6 mmol/L 3.6-5.0 Serum or plasma chloride measurement (moles/volume) 105 mmol/L 98-107 Carbon dioxide 15 mmol/L 21-32 Serum or plasma anion gap determination (moles/volume) 13 mmol/L 5-14 Serum or plasma urea nitrogen measurement (mass/volume ) 33 mg/dL 7-18 Serum or plasma creatinine measurement (mass/volume) 1.09 mg/dL 0.60-1.30 Serum or plasma urea nitrogen/creatinine mass ratio 30 NRG Serum or plasma creatinine measurement w ith calculation of estimated glomerular filtration rate > NRG Serum or plasma glucose measurement (mass/volume) 199 mg/dL 70-105 Serum or plasma calcium measurement (mass/volume) 9.1 mg/dL 8.5-10.1 Serum or plasma total bilirubin measurement (mass/volu me) 2.2 mg/dL 0.1-1.0 Serum or plasma alkaline phosphatase lelo surement (enzymatic activity/volume) 85 U/L 40-136 Serum or plasma aspartate aminotransfera se measurement (enzymatic activity/volume) 43 U/L 5-34 Serum or plasma alanine aminotransferase measurement (enzymatic activity/volume) 53 U/L 0-55 Serum or plasma protein measurement (mass/volume) 8.1 g/dL 6.4-8.2 Serum or plasma albumin measurement (mass/volume) 4.0 g/dL 3.2-4.5 Magnesium - 12/14/17 23:40 Magnesium 2.1 mg/dL 1.8-2.4 Serum or plasma creatine kinase measurem ent (enzymatic activity/volume) - 12/14/17 23:40 Serum or plasma creatine kinase measurem ent (enzymatic activity/volume) 378 U/L 30-200 Serum or plasma troponin i.cardiac measu rement (mass/volume) - 12/14/17 23:40 Serum or plasma troponin i.cardiac measurement (mass/v olume) 0.96 ng/mL <0.30 THYROID STIMULATING HORMONE - 12/14/17 2 3:40 THYROID STIMULATING HORMONE 0.08 u[iU]/mL 0.35-4.94 Methicillin resistant Staphylococcus aur eus (MRSA) screening culture - 12/14/17 23:45 Methicillin resistant Staphylococcus aureus (MRSA) scr eening culture NEG NRG Complete blood count (CBC) with automate d white blood cell (WBC) differential - 12/15/17 03:44 Blood leukocytes automated count (number/volume) 5.8 10*3/uL 4.3-11.0 Blood erythrocytes automated count (number/volume) 5.04 10*6/uL 4.35-5.85 Venous blood hemoglobin measurement (mass/volume) 16.1 g/dL 13.3-17.7 Blood hematocrit (volume fraction) 43 % 40-54 Automated erythrocyte mean corpuscular volume 86 [ foz_us] 80-99 Automated erythrocyte mean corpuscular h emoglobin (mass per erythrocyte) 32 pg 25-34 Automated erythrocyte mean corpuscular h emoglobin concentration measurement (mass/volume) 37 g/dL 32-36 Automated erythrocyte distribution width ratio 13. 0 % 10.0- 14.5 Automated blood platelet count (count/volume) 202 10*3/uL [...] 10*3 1.0-4.0 Blood monocytes automated count (number/volume) 0. 7 10*3 0.0-1.0 Automated eosinophil count 0.4 10*3/uL 0 .0-0.3 Automated blood basophil count (count/volume) 0.0 10*3/uL 0.0-0.1 Serum or plasma creatine kinase measurem ent (enzymatic activity/volume) - 12/15/17 03:44 Serum or plasma creatine kinase measurem ent (enzymatic activity/volume) 399 U/L 30-200 Whole blood basic metabolic panel - 11/18 05/06 03:44 Serum or plasma sodium measurement (moles/volume) 135 mmol/L 135-145 Serum or plasma potassium measurement (moles/volume) 3.7 mmol/L 3.6-5.0 Serum or plasma chloride measurement (moles/volume) 106 mmol/L 98-107 Carbon dioxide 16 mmol/L 21-32 Serum or plasma anion gap determination (moles/volume) 13 mmol/L 5-14 Serum or plasma urea nitrogen measurement (mass/volume ) 29 mg/dL 7-18 Serum or plasma creatinine measurement (mass/volume) 1.02 mg/dL 0.60-1.30 Serum or plasma urea nitrogen/creatinine mass ratio 28 NRG Serum or plasma creatinine measurement w ith calculation of estimated glomerular filtration rate > NRG Serum or plasma glucose measurement (mass/volume) 189 mg/dL 70-105 Serum or plasma calcium measurement (mass/volume) 8.9 mg/dL 8.5-10.1 Serum or plasma phosphate measurement (m ass/volume) - 12/15/17 03:44 Serum or plasma phosphate measurement (mass/volume) 3.0 mg/dL 2.3-4.7 Magnesium - 12/15/17 03:44 Magnesium 2.2 mg/dL 1.8-2.4 Serum or plasma troponin i.cardiac measu rement (mass/volume) - 12/15/17 03:44 Serum or plasma troponin i.cardiac measurement (mass/v olume) 0.72 ng/mL <0.30 Serum or plasma thyroxine (T4) free jaylene urement (mass/volume) - 12/15/17 03:44 Serum or plasma thyroxine (T4) free measurement (mass/ volume) 1.10 ng/dL 0.70-1.48 Capillary blood glucose measurement by g lucometer (mass/volume) - 12/15/17 10:38 Capillary blood glucose measurement by glucometer (mas s/volume) 158 mg/dL 70-110 Total triiodothyronine (T3) measurement - 12/15/17 11:15 Total triiodothyronine (T3) measurement 0.9 % 0.6-1.8 Capillary blood glucose measurement by g lucometer (mass/volume) - 12/15/17 16:34 Capillary blood glucose measurement by glucometer (mas s/volume) 180 mg/dL 70-110 Capillary blood glucose measurement by g lucometer (mass/volume) - 12/15/17 21:09 Capillary blood glucose measurement by glucometer (mas s/volume) 181 mg/dL 70-110 Complete blood count (CBC) with automate d white blood cell (WBC) differential - 12/16/17 03:15 Blood leukocytes automated count (number/volume) 4.5 10*3/uL 4.3-11.0 Blood erythrocytes automated count (number/volume) 4.74 10*6/uL 4.35-5.85 Venous blood hemoglobin measurement (mass/volume) 15.4 g/dL 13.3-17.7 Blood hematocrit (volume fraction) 41 % 40-54 Automated erythrocyte mean corpuscular volume 86 [ foz_us] 80-99 Automated erythrocyte mean corpuscular h emoglobin (mass per erythrocyte) 33 pg 25-34 Automated erythrocyte mean corpuscular h emoglobin concentration measurement (mass/volume) 38 g/dL 32-36 Automated erythrocyte distribution width ratio 12. 9 % 10.0- 14.5 Automated blood platelet count (count/volume) 209 10*3/uL [...] 10*3 1.0-4.0 Blood monocytes automated count (number/volume) 0. 5 10*3 0.0-1.0 Automated eosinophil count 0.3 10*3/uL 0 .0-0.3 Automated blood basophil count (count/volume) 0.0 10*3/uL 0.0-0.1 Whole blood basic metabolic panel - 11/19 03:15 Serum or plasma sodium measurement (moles/volume) 135 mmol/L 135-145 Serum or plasma potassium measurement (moles/volume) 3.5 mmol/L 3.6-5.0 Serum or plasma chloride measurement (moles/volume) 109 mmol/L 98-107 Carbon dioxide 16 mmol/L 21-32 Serum or plasma anion gap determination (moles/volume) 10 mmol/L 5-14 Serum or plasma urea nitrogen measurement (mass/volume ) 24 mg/dL 7-18 Serum or plasma creatinine measurement (mass/volume) 1.01 mg/dL 0.60-1.30 Serum or plasma urea nitrogen/creatinine mass ratio 24 NRG Serum or plasma creatinine measurement w ith calculation of estimated glomerular filtration rate > NRG Serum or plasma glucose measurement (mass/volume) 194 mg/dL 70-105 Serum or plasma calcium measurement (mass/volume) 8.6 mg/dL 8.5-10.1 Serum or plasma phosphate measurement (m ass/volume) - 12/16/17 03:15 Serum or plasma phosphate measurement (mass/volume) 2.4 mg/dL 2.3-4.7 Magnesium - 12/16/17 03:15 Magnesium 2.1 mg/dL 1.8-2.4 Capillary blood glucose measurement by g lucometer (mass/volume) - 12/16/17 11:46 Capillary blood glucose measurement by glucometer (mas s/volume) 168 mg/dL 70-110 Capillary blood glucose measurement by g lucometer (mass/volume) - 12/16/17 18:36 Capillary blood glucose measurement by glucometer (mas s/volume) 187 mg/dL 70-110 Capillary blood glucose measurement by g lucometer (mass/volume) - 12/16/17 20:38 Capillary blood glucose measurement by glucometer (mas s/volume) 132 mg/dL 70-110 Complete blood count (CBC) with automate d white blood cell (WBC) differential - 12/17/17 03:10 Blood leukocytes automated count (number/volume) 5.6 10*3/uL 4.3-11.0 Blood erythrocytes automated count (number/volume) 4.58 10*6/uL 4.35-5.85 Venous blood hemoglobin measurement (mass/volume) 14.9 g/dL 13.3-17.7 Blood hematocrit (volume fraction) 39 % 40-54 Automated erythrocyte mean corpuscular volume 85 [ foz_us] 80-99 Automated erythrocyte mean corpuscular h emoglobin (mass per erythrocyte) 33 pg 25-34 Automated erythrocyte mean corpuscular h emoglobin concentration measurement (mass/volume) 38 g/dL 32-36 Automated erythrocyte distribution width ratio 12. 5 % 10.0- 14.5 Automated blood platelet count (count/volume) 189 10*3/uL [...] 10*3 1.0-4.0 Blood monocytes automated count (number/volume) 0. 7 10*3 0.0-1.0 Automated eosinophil count 0.5 10*3/uL 0 .0-0.3 Automated blood basophil count (count/volume) 0.0 10*3/uL 0.0-0.1 Whole blood basic metabolic panel - 09/05 03:10 Serum or plasma sodium measurement (moles/volume) 133 mmol/L 135-145 Serum or plasma potassium measurement (moles/volume) 3.1 mmol/L 3.6-5.0 Serum or plasma chloride measurement (moles/volume) 107 mmol/L 98-107 Carbon dioxide 15 mmol/L 21-32 Serum or plasma anion gap determination (moles/volume) 11 mmol/L 5-14 Serum or plasma urea nitrogen measurement (mass/volume ) 16 mg/dL 7-18 Serum or plasma creatinine measurement (mass/volume) 0.96 mg/dL 0.60-1.30 Serum or plasma urea nitrogen/creatinine mass ratio 17 NRG Serum or plasma creatinine measurement w ith calculation of estimated glomerular filtration rate > NRG Serum or plasma glucose measurement (mass/volume) 161 mg/dL 70-105 Serum or plasma calcium measurement (mass/volume) 8.5 mg/dL 8.5-10.1 Serum or plasma phosphate measurement (m ass/volume) - 12/17/17 03:10 Serum or plasma phosphate measurement (mass/volume) 2.7 mg/dL 2.3-4.7 Magnesium - 12/17/17 03:10 Magnesium 2.1 mg/dL 1.8-2.4 Capillary blood glucose measurement by g lucometer (mass/volume) - 12/17/17 12:01 Capillary blood glucose measurement by glucometer (mas s/volume) 134 mg/dL 70-110 Capillary blood glucose measurement by g lucometer (mass/volume) - 12/17/17 14:20 Capillary blood glucose measurement by glucometer (mas s/volume) 138 mg/dL 70-110 BMP - 12/24/17 15:46 Anion Gap 17 6-14 BUN 19 mg/dL 5-25 Calcium 9.2 mg/dL 8.3-10.4 Chloride 107 mmol/L 95-114 CO2 17 mEq/L 22-33 Creat 0.92 mg/dL 0.50-1.50 eGFR 85 mL/min/1.73m2 >59 Glucose 274 mg/dL 70-110 Osmo 294 280-295 Potassium 4.4 mmol/L 3.5-5.3 Sodium 137 mmol/L 134-148 Complete blood count (CBC) with automate d white blood cell (WBC) differential - 04/19/18 15:28 Blood leukocytes automated count (number/volume) 7.5 10*3/uL 4.3-11.0 Blood erythrocytes automated count (number/volume) 4.59 10*6/uL 4.35-5.85 Venous blood hemoglobin measurement (mass/volume) 14.8 g/dL 13.3-17.7 Blood hematocrit (volume fraction) 39 % 40-54 Automated erythrocyte mean corpuscular volume 86 [ foz_us] 80-99 Automated erythrocyte mean corpuscular h emoglobin (mass per erythrocyte) 32 pg 25-34 Automated erythrocyte mean corpuscular h emoglobin concentration measurement (mass/volume) 38 g/dL 32-36 Automated erythrocyte distribution width ratio 13. 0 % 10.0- 14.5 Automated blood platelet count (count/volume) 173 10*3/uL 130-400 Automated blood platelet mean volume measurement 9.3 [foz_us] 7.4-10.4 Automated blood neutrophils/100 leukocytes 75 % 42-75 Automated blood lymphocytes/100 leukocytes 19 % 12-44 Blood monocytes/100 leukocytes 6 % 0-12 Automated blood eosinophils/100 leukocytes 0 % 0-10 Automated blood basophils/100 leukocytes 1 % 0-10 Blood neutrophils automated count (number/volume) 5.6 10*3 1.8-7.8 Blood lymphocytes automated count (number/volume) 1.4 10*3 1.0-4.0 Blood monocytes automated count (number/volume) 0. 4 10*3 0.0-1.0 Automated eosinophil count 0.0 10*3/uL 0 .0-0.3 Automated blood basophil count (count/volume) 0.1 10*3/uL 0.0-0.1 Comprehensive metabolic panel - 04/19/18 15:28 Serum or plasma sodium measurement (moles/volume) 141 mmol/L 135-145 Serum or plasma potassium measurement (moles/volume) 3.9 mmol/L 3.6-5.0 Serum or plasma chloride measurement (moles/volume) 111 mmol/L 98-107 Carbon dioxide 18 mmol/L 21-32 Serum or plasma anion gap determination (moles/volume) 12 mmol/L 5-14 Serum or plasma urea nitrogen measurement (mass/volume ) 20 mg/dL 7-18 Serum or plasma creatinine measurement (mass/volume) 0.94 mg/dL 0.60-1.30 Serum or plasma urea nitrogen/creatinine mass ratio 21 NRG Serum or plasma creatinine measurement w ith calculation of estimated glomerular filtration rate > NRG Serum or plasma glucose measurement (mass/volume) 203 mg/dL 70-105 Serum or plasma calcium measurement (mass/volume) 9.7 mg/dL 8.5-10.1 Serum or plasma total bilirubin measurement (mass/volu me) 1.7 mg/dL 0.1-1.0 Serum or plasma alkaline phosphatase lelo surement (enzymatic activity/volume) 84 U/L 40-136 Serum or plasma aspartate aminotransfera se measurement (enzymatic activity/volume) 36 U/L 5-34 Serum or plasma alanine aminotransferase measurement (enzymatic activity/volume) 47 U/L 0-55 Serum or plasma protein measurement (mass/volume) 8.0 g/dL 6.4-8.2 Serum or plasma albumin measurement (mass/volume) 4.4 g/dL 3.2-4.5 CALCIUM CORRECTED 9.4 mg/dL 8.5-10.1 Comprehensive Metabolic Panel - 06/17/18 13:50 Albumin 4.1 g/dL 3.6-5.1 ALP 83 U/L 35-130 ALT 41 U/L 6-45 Anion Gap 14 6-14 AST 34 U/L 2-40 BUN 15 mg/dL 5-25 Calcium 9.3 mg/dL 8.3-10.4 Chloride 108 mmol/L 95-114 CO2 20 mEq/L 22-33 Creat 0.97 mg/dL 0.50-1.50 eGFR 80 mL/min/1.73m2 >59 Globulin 3.5 g/dL 2.3-3.5 Glucose 209 mg/dL 70-110 Osmo 291 280-295 Potassium 3.9 mmol/L 3.5-5.3 Sodium 138 mmol/L 134-148 TBil 1.1 mg/dL 0.2-1.2 TP 7.6 g/dL 6.0-8.3 PSA Yearly Screen - 05/06/19 11:49 PSA TOTAL 0.4 ng/mL 0.0-4.0 Lipid Panel - 08/06/19 10:59 C/HDL 2.6 3.7-6.7 Cholesterol 122 mg/dL 100-240 HDL 47 mg/dL 30-85 LDL-Calculated 36 mg/dL 0-100 Trig 196 mg/dL 35-160 VLDL 39 mg/dL 0-42 Encounters ACCT No. Visit Date/Time Discharge Status Pt. Type Provider Facility Loc./Unit Complaint [id number] 11/11/2014 17:51:24 11/11/2014 23:59: 59 CLS Outpatient Mark Anna [id number] 12/14/2017 23:08:00 018 17:10:00 DIS Outpatient TANVIR LARSON, MARIA M Burgess [facility] CATH ACUTE RENAL, DEHYDRATION,CARDIAC ISSUES [id number] 11/25/2017 08:36:00 018 23:59:59 CLS Outpatient MICHEL GALEANA APRN [facility] RT J30.9 ALLERGIC RHINITIS [id number] 10/09/2016 16:07:00 017 23:59:59 CLS Outpatient MICHEL GALEANA APRN [facility] RAD FEVER [id number] 09/28/2016 08:33:00 017 23:59:59 CLS Outpatient AZUL LARSON FACC, JAVIER SANDY CC DS [facility] CARD CARDIAC MURMUR,EXERTIONAL DYSPNEA,SLEEP APNEA [id number] 01/31/2016 21:19:00 016 06:26:00 DIS Outpatient MICHEL GALEANA APRN [facility] SLEEP SNORING,DAYTIME SLEEPINESS [id number] 01/06/2016 12:45:00 016 15:00:00 DIS Emergency FUENTES LARSON, KELSIE Enamorado [facility] ER DIZZINESS [id number] 12/29/2015 21:46:00 016 01:44:00 DIS Emergency HALEIGH SANCHES MD [facility] ER NAUSEA,VOMITING [id number] 11/24/2015 08:38:00 016 23:59:59 CLS Outpatient DEVYN LEMUSP [facility] CARD CHEST PAIN,PALP ITATIONS [id number] 11/08/2015 09:13:00 016 23:59:59 CLS Outpatient DEVYN LEMUSP [facility] LAB CHEST PAIN, EXE RTIONAL DYSPNEA, PALPITATIONS [id number] 08/04/2015 16:49:00 015 23:59:59 CLS Outpatient CHAYA EASON MD [facility] LAB ED [id number] 12/04/2014 22:10:00 22:30:00 DIS Emergency FUENTES LARSON, KELSIE Enamorado [facility] ER RT FOOT INJ;YANET PPED ON A SCREW [id number] 09/15/2014 14:26:00 015 23:59:59 CLS Outpatient ORALIAINA DEVYN Scott WANT AD RECEIVER [facility] LAB PALPITATIONS,SL EEP APNEA,RBBB,TOBACCO ABUSE [id number] 08/26/2014 08:51:00 015 23:59:59 CLS Outpatient KRISTAL BABIN MD [facility] CARD NEW MURMUR, PALPITATIO NS, CHEST PAIN [id number] 07/30/2014 10:06:00 014 23:59:59 CLS Outpatient CHAYA EASON MD [facility] LAB BPH,ED [id number] 05/28/2012 11:56:00 Document Registration [id number] 05/02/2012 21:56:00 Document Registration [id number] 03/27/2011 10:58:00 Document Registration [id number] 02/15/2010 05:40:00 Document Registration [id number] 02/10/2010 08:09:00 Document Registration [id number] 01/19/2010 14:18:00 Document Registration [id number] 12/22/2009 06:38:00 Document Registration [id number] 08/06/2019 10:58:00 08/06/2019 23:59 :00 DIS Outpatient KRISTAL BABIN [id number] 08/06/2019 00:00:00 08/06/2019 23:59 :00 DIS Outpatient KRISTAL BABIN [id number] 08/05/2019 00:00:00 08/05/2019 23:59 :00 DIS Outpatient Tonny Bunch [id number] 06/30/2019 11:32:00 06/30/2019 23:59: 00 DIS Outpatient KRISTAL BABIN [id number] 05/09/2019 11:02:00 05/09/2019 23:59: 00 DIS Outpatient Antoni Blue [id number] 05/06/2019 11:48:00 05/06/2019 23:59: 00 DIS Outpatient KRISTAL BABIN [id number] 05/06/2019 10:00:00 05/06/2019 23:59: 00 DIS Outpatient KRISTAL BABIN [id number] 02/11/2019 21:36:00 02/11/2019 22:28: 00 DIS Outpatient GHADA [facility] ER [id number] 06/17/2018 15:50:00 06/17/2018 23:59: 00 DIS Outpatient KRISTAL BABIN [id number] 12/24/2017 15:46:00 12/24/2017 23:59: 00 DIS Outpatient KRISTAL BABIN [id number] 12/14/2017 18:27:00 12/14/2017 22:42: 00 DIS Outpatient Jose Manuel [facility] ER [id number] 12/12/2017 14:54:00 12/12/2017 23:59: 00 DIS Outpatient KRISTAL BABIN [id number] 06/13/2017 13:30:00 06/13/2017 23:59: 00 DIS Outpatient KRISTAL BABIN [id number] 02/11/2017 19:10:00 02/11/2017 23:59: 00 DIS Outpatient KRISTAL BABIN [id number] 01/19/2017 17:42:00 01/19/2017 23:59: 00 DIS Outpatient Vida Christopher [id number] 12/06/2016 11:43:00 12/06/2016 23:59: 00 DIS Outpatient KRISTAL BABIN [id number] 02/01/2019 11:18:00 Document Registration [id number] 12/04/2018 13:30:00 Document Registration [id number] 07/16/2018 15:10:00 Document Registration [id number] 06/17/2018 13:50:00 Document Registration [id number] 02/03/2018 10:30:00 Document Registration [id number] 12/24/2017 13:30:00 Document Registration [id number] 12/14/2017 19:19:07 Document Registration [id number] 12/12/2017 13:50:00 Document Registration [id number] 11/17/2017 13:57:00 Document Registration [id number] 10/29/2017 09:50:00 Document Registration [id number] 06/13/2017 13:00:00 Document Registration [id number] 04/30/2017 14:45:00 Document Registration [id number] 02/09/2019 07:46:00 23:59:59 CLS Outpatient MICHEL GALEANA APRN [facility] RT COUGH,EXERTIONA L DYSPNEA,SLEEP APNEA [id number] 01/22/2019 10:15:00 23:59:59 CLS Outpatient MICHEL GALEANA APRN [facility] RAD COUGH,EXERTIONA L DYSPNEA [id number] 07/25/2018 07:21:00 018 23:59:59 CLS Outpatient AZUL LARSON FACC, JAVIER SANDY CC DS [facility] CARD SYNCOPE,TOB ACCO USE,SLEEP APNEA [id number] 04/19/2018 15:12:00 018 16:10:00 DIS Outpatient JORDAN RAMIREZ MD [facility] SDC ESOPHAGEAL OBSTRUCTION [id number] 04/14/2018 10:27:00 018 11:00:00 DIS Emergency KELSIE DILL MD [facility] ER SUTURE REMOVAL [id number] 04/07/2018 13:57:00 018 15:23:00 DIS Emergency MOLLY TAYLOR [facility] ER HEAD INJ, BLEEDING [id number] 12/14/2017 23:08:00 Document Registration [id number] 11/25/2017 08:36:00 Document Registration [id number] 10/09/2016 16:07:00 Document Registration [id number] 09/28/2016 08:33:00 Document Registration [id number] 01/31/2016 21:19:00 Document Registration [id number] 01/06/2016 12:45:00 Document Registration [id number] 12/29/2015 21:46:00 Document Registration [id number] 11/24/2015 08:38:00 Document Registration [id number] 11/08/2015 09:13:00 Document Registration [id number] 08/04/2015 16:49:00 Document Registration [id number] 12/04/2014 22:10:00 Document Registration [id number] 09/15/2014 14:26:00 Document Registration [id number] 08/26/2014 08:51:00 Document Registration [id number] 07/30/2014 10:06:00 Document Registration [id number] 12/22/2009 06:38:00 Document Registration
[2019-11-30] MEDS ORDERED: ASPIRIN 81 MG CHEW (CHILDREN'S ASA) PO ONE (22:15)
[2019-11-30 22:18] LABS: BASOPHILS # (AUTO) 0.1 10^3/uL (0.0-0.1); BASOPHILS % (AUTO) 1 % (0-10); EOSINOPHILS # (AUTO) 0.6 10^3/uL (0.0-0.3); EOSINOPHILS % (AUTO) 7 % (0-10); HEMATOCRIT 42 % (40-54); HEMOGLOBIN 15.9 G/DL (13.3-17.7); LYMPHOCYTES # (AUTO) 2.6 X 10^3 (1.0-4.0); LYMPHOCYTES % (AUTO) 35 % (12-44); MEAN CORPUSCULAR HEMOGLOBIN 32 PG (25-34); MEAN CORPUSCULAR HGB CONC 38 G/DL (32-36); MEAN CORPUSCULAR VOLUME 84 FL (80-99); MEAN PLATELET VOLUME 9.4 FL (7.4-10.4); MONOCYTES # (AUTO) 0.5 X 10^3 (0.0-1.0); MONOCYTES % (AUTO) 7 % (0-12); NEUTROPHILS # (AUTO) 3.7 X 10^3 (1.8-7.8); NEUTROPHILS % (AUTO) 50 % (42-75); PLATELET COUNT 194 10^3/uL (130-400); WHITE BLOOD COUNT 7.4 10^3/uL (4.3-11.0)
[2019-11-30 22:23] LABS: ALBUMIN 4.3 GM/DL (3.2-4.5)
[2019-11-30 22:24] LABS: CHLORIDE 102 MMOL/L (98-107); POTASSIUM 4.1 MMOL/L (3.6-5.0); SODIUM 132 MMOL/L (135-145)
[2019-11-30 22:25] LABS: CALCIUM 9.3 MG/DL (8.5-10.1); PROTHROMBIN TIME PATIENT 13.6 SEC (12.2-14.7)
[2019-11-30 22:27] LABS: CARBON DIOXIDE 15 MMOL/L (21-32)
[2019-11-30 22:28] LABS: BILIRUBIN,TOTAL 1.2 MG/DL (0.1-1.0)
[2019-11-30 22:29] LABS: ALKALINE PHOSPHATASE 110 U/L (40-136)
[2019-11-30 22:30] LABS: CREATININE SERUM 1.04 MG/DL (0.60-1.30); GFR ESTIMATED > 60
[2019-11-30 22:31] LABS: BUN/CREATININE RATIO 19
[2019-11-30 22:33] LABS: ALANINE AMINOTRANSFERASE 56 U/L (0-55)
--- NOTE | 2019-11-30 22:39 | NUR ---
PT STATES, "OH SORRY I FORGOT TO TELL YOU I HAVE A GUN ON ME. I WASN'T THINKING TO LEAVE IT AT HOME." KAMINI, MANAGER MEDIA NOTIFIED AND BROUGHT LOCKBOX TO ER IN WHICH GUN AND 5 BULLETS WERE PLACED IN BOX AND LOCKED. TO RETURN TO PT UPON D/C.
[2019-11-30 22:44] LABS: GLUCOSE 430 MG/DL (70-105)
--- NOTE | 2019-11-30 22:48 | ED Cardiac General ---
History of Present Illness General Chief Complaint: Cardiac/General Problems Stated Complaint: CP Nursing Triage Note: TO ED [facility] TO ROOM 7. PT FELT HEART RACING AND HAD LEFT ARM NUMBNESS, UPON ARRIVAL EMS NOTED HR 175-203 SVT. VAGAL MANEUVERS TRIED WITHOUT SUCCESS. ADENOSINE 6MG GIVEN WITHOUT SUCCESS, 12 MG ADENOSINE GIVEN WITH THEN RETURN TO NSR. PT DENIES CP, SOA ON ARRIVAL. PER EMS BLOOD SUGAR 300s EN ROUTE. Source: patient, EMS, old records Exam Limitations: no limitations History of Present Illness Date Seen by Provider: Nov 30, 2019 Time Seen by Provider: 22:00 Initial Comments This 59-year-old gentleman presents to the emergency room with tachycardia, chest discomfort, and discomfort radiating into the left hand that occurred for about 20 minutes prior to activating EMS. Upon EMS arrival they noted a heart rate in the 175-200 BPM range. It appeared to be a regular tachycardia. Because they were quite some distance from the hospital, they proceeded to treat with adenosine 6 mg with no response followed by 12 mg with conversion to a si nus rhythm at a rate of around 100. This was captured on rhythm strip. Patient has had episodes of tachycardia in the past. He also had cardiac angiography in December [address] Foster with normal coronary arteries and an EF of 60 percent. He is noted to have significant hyperglycemia with blood sugar near 400. He admits to drinking multiple regular sodas and milk today. He has not been checking his blood sugars at home. He presently takes metformin 1000 mg twice daily. Allergies and Home Medications Allergies Coded Allergies: No Known Drug Allergies (Unverified , 04/07/18) Home Medications Aspirin 81 Mg Tab.chew, 81 MG PO DAILY Prescribed by: DIANNE KNOWLES on 12/17/17 0801 Metoprolol Succinate 100 Mg Tab.er.24h, 100 MG PO DAILY Prescribed by: HALEIGH MAGALLANES on 11/30/19 2356 Ondansetron 4 Mg Tab.rapdis, 4 MG SL Q4H PRN for NAUSEA/VOMITING-1ST LINE Prescribed by: DIANNE KNOWLES on 12/17/17 0800 Pantoprazole Sodium 40 Mg Tablet.dr, 40 MG PO DAILY, (Reported) Patient Home Medication List Home Medication List Reviewed: Yes Review of Systems Review of Systems Constitutional: no symptoms reported EENTM: No Symptoms Reported Respiratory: No Symptoms Reported Cardiovascular: See HPI Gastrointestinal: No Symptoms Reported Genitourinary: No Symptoms Reported Musculoskeletal: no symptoms reported Skin: no symptoms reported Psychiatric/Neurological: No Symptoms Reported Endocrine: See HPI Hematologic/Lymphatic: No Symptoms Reported Past Fyaefux-Mprtjz-Uhtptz Hx Patient Social History Alcohol Use: Occasionally Uses Recreational Drug Use: No Type Used: Cigars 2nd Hand Smoke Exposure: Yes Recent Foreign Travel: No Contact w/Someone Who Travel: No Recent Infectious Disease Expo: No Recent Hopitalizations: No Physical Abuse: No Sexual Abuse: No Mistreated: No Fear: No Immunizations Up To Date Tetanus Booster (TDap): More than 5yrs Seasonal Allergies Seasonal Allergies: No Past Medical History Surgeries: Yes (COLECTOMY, Esophageal dilatation,ILEOSTOMY) Abdominal, Bowel Surgery, Cardiac (cardiac angiography 2018 with normal coronary arteries) Respiratory: No Sleep Apnea Currently Using CPAP: Yes Cardiac: Yes (right bundle branch block) Neurological: Yes Neuropathy, Vertigo Reproductive Disorders: No Sexually Transmitted Disease: No Genitourinary: No Gastrointestinal: Yes Gastroesophageal Reflux (with esophageal strictures), Crohns Disease Musculoskeletal: No Endocrine: Yes Diabetes, Non-Insulin dep HEENT: No Cancer: No Psychosocial: No Integumentary: No Blood Disorders: No Family Medical History Cancer, Other Conditions/Hx Physical Exam Vital Signs Vital Signs - First Documented 11/30/19 12/01/19 22:01 00:03 Temp 36.4 Pulse 97 Resp 18 B/P (MAP) 144/104 (117) Pulse Ox 98 O2 Delivery Room Air Capillary Refill : Less Than 3 Seconds Height, Weight, BMI Height: 6'3.00" Weight: 295lbs. 0.0oz. 133.498652fm; 33.00 BMI Method:Stated General Appearance: No Apparent Distress, WD/WN, Obese HEENT: Normal ENT Inspection Neck: Normal Inspection Respiratory: Lungs Clear, Normal Breath Sounds, No Accessory Muscle Use, No Respiratory Distress Cardiovascular: No Edema, No Murmur, Normal Peripheral Pulses, Tachycardia Gastrointestinal: Normal Bowel Sounds, Non Tender, Soft, Other (ileostomy site normal in appearance) Extremity: Normal Inspection, Non Tender, No Pedal Edema Neurologic/Psychiatric: Alert, Oriented x3, No Motor/Sensory Deficits, Normal Mood/Affect, recovery manager II-XII Norm as Tested Skin: Normal Color, Warm/Dry Procedures/Interventions Suture Size: 4-0 Progress/Results/Core Measures Results/Orders Lab Results Laboratory Tests Test 11/30/19 22:05 11/30/19 22:58 11/30/19 23:52 Range/Units White Blood Count 7.4 4.3-11.0 10^3/uL Red Blood Count 4.97 4.35-5.85 10^6/uL Hemoglobin 15.9 13.3-17.7 G/DL Hematocrit 42 40-54 % Mean Corpuscular Volume 84 80-99 FL Mean Corpuscular Hemoglobin 32 25-34 PG Mean Corpuscular Hemoglobin Concent 38 H 32-36 G/DL Red Cell Distribution Width 13.0 10.0-14.5 % Platelet Count 194 130-400 10^3/uL Mean Platelet Volume 9.4 7.4-10.4 FL Neutrophils (%) (Auto) 50 42-75 % Lymphocytes (%) (Auto) 35 12-44 % Monocytes (%) (Auto) 7 0-12 % Eosinophils (%) (Auto) 7 0-10 % Basophils (%) (Auto) 1 0-10 % Neutrophils # (Auto) 3.7 1.8-7.8 X 10^3 Lymphocytes # (Auto) 2.6 1.0-4.0 X 10^3 Monocytes # (Auto) 0.5 0.0-1.0 X 10^3 Eosinophils # (Auto) 0.6 H 0.0-0.3 10^3/uL Basophils # (Auto) 0.1 0.0-0.1 10^3/uL Prothrombin Time 13.6 12.2-14.7 SEC INR Comment 1.0 0.8-1.4 Activated Partial Thromboplast Time 29 24-35 SEC Sodium Level 132 L 135-145 MMOL/L Potassium Level 4.1 3.6-5.0 MMOL/L Chloride Level 102 98-107 MMOL/L Carbon Dioxide Level 15 L 21-32 MMOL/L Anion Gap 15 H 5-14 MMOL/L Blood Urea Nitrogen 20 H 7-18 MG/DL Creatinine 1.04 0.60-1.30 MG/DL Estimat Glomerular Filtration Rate > 60 BUN/Creatinine Ratio 19 Glucose Level 430 *H 70-105 MG/DL Calcium Level 9.3 8.5-10.1 MG/DL Corrected Calcium 9.1 8.5-10.1 MG/DL Magnesium Level 2.0 1.6-2.4 MG/DL Total Bilirubin 1.2 H 0.1-1.0 MG/DL Aspartate Amino Transf (AST/SGOT) 36 H 5-34 U/L Alanine Aminotransferase (ALT/SGPT) 56 H 0-55 U/L Alkaline Phosphatase 110 40-136 U/L Myoglobin 85.8 10.0-92.0 NG/ML Troponin I < 0.028 <0.028 NG/ML Total Protein 8.0 6.4-8.2 GM/DL Albumin 4.3 3.2-4.5 GM/DL TSH [place] Testing 2.56 0.35-4.94 UIU/ML Glucometer 410 *H 287 H 70-110 MG/DL My Orders Orders - HALEIGH SANCHES MD Cbc With Automated Diff (11/30/19 22:12) Magnesium (11/30/19 22:12) Chest 1 View, Ap/Pa Only (11/30/19 22:12) Ekg Tracing (11/30/19 22:12) Comprehensive Metabolic Panel (11/30/19 22:12) Myoglobin Serum (11/30/19 22:12) Protime With Inr (11/30/19 22:12) Partial Thromboplastin Time (11/30/19 22:12) O2 (11/30/19 22:12) Monitor-Rhythm Ecg Trace Only (11/30/19 22:12) Ed Iv/Invasive Line Start (11/30/19 22:12) Aspirin Chewable Tablet (Baby Aspirin Ch (11/30/19 22:15) Accucheck Stat ONCE (11/30/19 22:12) Thyroid Analyzer (11/30/19 22:05) Troponin I (11/30/19 22:05) Ns Iv 1000 Ml (Sodium Chloride 0.9%) (11/30/19 22:51) Insulin (Regular) Human (Humulin R (Per (11/30/19 23:00) Metoprolol Succinate (Xl) Tab (Toprol Xl (11/30/19 23:00) Accucheck Stat ONCE (11/30/19 23:00) Medications Given in ED Current Medications Medications Dose Ordered Sig/Marv Route Start Time Stop Time Status Last Admin Dose Admin Aspirin 324 mg ONCE ONCE PO 11/30/19:15 11/30/19 22:16 DC 11/30/19 22:17 324 MG Insulin Human Regular 5 unit ONCE ONCE IV 11/30/19 23:00 11/30/19 23:01 DC 11/30/19 23:06 5 UNIT Sodium Chloride 1,000 ml @ 0 mls/hr Q0M ONCE IV 11/30/19 22:51 11/30/19 22:53 DC 11/30/19 23:06 999 MLS/HR Vital Signs/I&O 11/30/19 12/01/19 22:01 00:03 Temp 36.4 36.4 Pulse 97 85 Resp 18 16 B/P (MAP) 144/104 (117) 125/86 (117) Pulse Ox 98 O2 Delivery Room Air Room Air 12/01/19 00:00 Intake Total 1000 ml Balance 1000 ml Blood Pressure Mean: 117 Progress Progress Note #1: Time: 23:13 Progress Note Patient's initial blood sugar was 430. After a liter of IV fluid it decreased slightly to 410. We are now giving a second liter of IV fluid and 5 units of insulin IV. Troponin was negative. Patient has stated a sinus rhythm around 100 bpm. I discussed the case with Dr. Foster and he has reviewed the EKG and strips. He has recommended daily aspirin and Toprol-XL 100 mg daily. His first dose is being given here. Aspirin 324 mg was also administered. We will keep the patient here until a good trend downward as noted on his blood sugars. Patient will follow up closely with Dr. Foster. Progress Note #2: Time: 23:54 Progress Note Vital signs are stable. Repeat blood sugars 287. Patient is still symptom free. He is ready for discharge. Initial ECG Impression Date: Nov 30, 2019 Initial ECG Impression Time: 22:06 Initial ECG Rate: 97 Comment Sinus rhythm with PACs. No overt ST elevation or depression. Right bundle branch block noted. Diagnostic Imaging Diagonstic Imaging: Xray Plain Films/CT/US/NM/MRI: chest Comments Chest x-ray viewed by me. Report not yet available. No acute abnormalities appreciated. Departure Impression Primary Impression: Atrial tachycardia Additional Impression: Hyperglycemia Disposition: 01 HOME, SELF-CARE Condition: Improved Departure-Patient Inst. Referrals: KRISTAL BABIN MD (PCP/Family) Primary Care Physician Patient Instructions: Hyperglycemia, Adult, Supraventricular Tachycardia (SVT) Add. Discharge Instructions: Drink plenty of sugar free clear liquids. Eat a low sugar, low carbohydrate diet. Work toward quitting smoking. Seek assistance from your primary care provider if needed. Follow-up with Dr. Foster as soon as possible. Please call his office to obtain an appointment time for December 01. Increase your metformin to 1000 mg in the morning, 500 mg with lunch, and 1000 mg in the evening. Check your blood sugars fasting in the morning and 2 hours after meals. Follow-up with your primary care provider soon as possible and review your blood sugars at that time. Start Toprol-XL as prescribed and take aspirin 81 mg daily. Return to the emergency room if you have recurrent or worsening symptoms. All discharge instructions reviewed with patient and/or family. Voiced understanding. Scripts Metoprolol Succinate (Toprol Xl) 100 Mg Tab.er.24h 100 MG PO DAILY, #30 TAB Prov: HALEIGH SANCHES MD 11/30/19 Copy Copies To 1: JAVIER FOSTER MD [facility] CCDS Copies To 2: KRISTAL BABIN MD, JOSHUA T MD Nov 30, 2019 22:48
[2019-11-30] MEDS ORDERED: NS IV 1000 ML 1,000 ML IV ONE (22:51)
[2019-11-30 22:53] LABS: TSH (THYROID ANALYZER) 2.56 UIU/ML (0.35-4.94)
[2019-11-30] MEDS ORDERED: inSUlin (REGULAR) HUMAN 1 UNIT/0.01 ML (CHARGE PER UNIT) IV ONE (23:00)
[2019-11-30] MEDS ORDERED: meTOproloL SUCCINATE 50 MG (TOPROL XL) TAB PO SCH (23:00)
[2019-11-30] MEDS ORDERED: METO100T6 PO (23:56)
[2019-12-01 00:03] VITALS: BP 125/86
--- NOTE | 2019-12-01 00:05 | NUR ---
BULLETS AND GUN RETURNED TO PT UPON DISCHARGE.
--- NOTE | 2019-12-01 06:11 | Diagnostic Imaging Report ---
INDICATION: Palpitations COMPARISON: 01/22/2019 FINDINGS: Single frontal view of the chest demonstrates normal heart size and pulmonary vascularity. The lungs are well aerated and clear. No large pleural effusion or pneumothorax is seen. The visualized osseous structures show no acute abnormalities. IMPRESSION: 1. No acute cardiopulmonary process. Dictated by: Dictated on workstation # [id number]
== END 2019-12-01 00:05 | disposition home or self-care (01) ==
LOC: EDUNIT# 21:59 → ER 22:00
DX: I47.1 Supraventricular tachycardia (principal); F17.210 Nicotine dependence, cigarettes, uncomplicated; G47.30 Sleep apnea, unspecified; I45.10 Unspecified right bundle-branch block; E11.65 Type 2 diabetes mellitus with hyperglycemia; E11.40 Type 2 diabetes mellitus with diabetic neuropathy, unspecified; Z79.84 Long term (current) use of oral hypoglycemic drugs; K21.9 Gastro-esophageal reflux disease without esophagitis; K50.90 Crohn's disease, unspecified, without complications
CPT/HCPCS: 36415; 71045; 80053; 82962; 83735; 83874; 84443; 84484; 85025; 85610; 85730; 93041

== ENCOUNTER → 2020-03-10 | Outpatient (CLI) | payer OTHER ==
[~2020-03-10] MED LIST changes: +METO100T6 PO
== END ==
LOC: CARD 09:20
PROVIDERS: ATTEND Internal Medicine Cardiovascular Disease
DX: I47.1 Supraventricular tachycardia (principal); I45.19 Other right bundle-branch block; G47.33 Obstructive sleep apnea (adult) (pediatric); R01.2 Other cardiac sounds; R00.2 Palpitations; Z72.0 Tobacco use
CPT/HCPCS: 93306

== ENCOUNTER 2020-05-02 08:00 | Day surgery (SDC) | payer OTHER ==
[~2020-05-02] VITALS: Ht 191 cm; Wt 131.8 kg
[2020-05-02] VITALS (19 sets, daily range): BP systolic 101–149; BP diastolic 49–84
[2020-05-02 07:33] LABS: HEMOGLOBIN 14.6 G/DL (13.3-17.7); MEAN PLATELET VOLUME 8.9 FL (7.4-10.4); WHITE BLOOD COUNT 6.4 10^3/uL (4.3-11.0)
[2020-05-02 07:46] LABS: PROTHROMBIN TIME PATIENT 13.6 SEC (12.2-14.7)
[2020-05-02 07:54] LABS: ALANINE AMINOTRANSFERASE 42 U/L (0-55); ALKALINE PHOSPHATASE 75 U/L (40-136); BILIRUBIN,TOTAL 1.1 MG/DL (0.1-1.0); BUN/CREATININE RATIO 19; CALCIUM 8.9 MG/DL (8.5-10.1); CARBON DIOXIDE 19 MMOL/L (21-32); CHLORIDE 106 MMOL/L (98-107); GFR ESTIMATED > 60; GLUCOSE 211 MG/DL (70-105); SODIUM 135 MMOL/L (135-145); TOTAL PROTEIN 7.6 GM/DL (6.4-8.2)
[~2020-05-02 08:00] MED LIST changes: +DILT240C92 PO; +GLIM4TAB5 PO; +HEParin (CATH LAB) 1,000 ML IV ONE; +ISOPROTERENOL 0.2 MG/D5W 50 ML IV ONE; +LIDOCAINE 1% INJ 20 ML 20 ML VIAL ONE; +LIDOCAINE BOLUS 100 MG/5 ML (IMS) SYR ONE; +METF-399 PO; +MIDAZOLAM 2 MG/2 ML (VERSED) VIAL ONE; +NS IV 1000 ML 1,000 ML IV SCH; +NS IV 1000 ML 1,000 ML ONE; +ONDANSETRON 4 MG/2 ML (SDV) Z0FRAN ONE; +ROCURONIUM 10 MG/ML 5 ML SYRINGE IV ONE; +SUCCINYLCHOLINE INJ 100 MG/5 ML SYR/VIAL ONE; +fentaNYL INJECTION 100 MCG/2 ML AMP ONE; +proPOfol 200 MG/20 ML (DIPRIVAN) VIAL IV ONE
[2020-05-02] MEDS ORDERED: SEVOFLURANE (ULTANE) 15 ML INHAL SOLN ONE ×2 (08:25→11:27)
[2020-05-02] MEDS ORDERED: ROCURONIUM 10 MG/ML 5 ML SYRINGE IV ONE (10:08)
[2020-05-02] MEDS ORDERED: NEOSTIGMINE 3 MG/3 ML VIAL ONE (11:29)
[2020-05-02] MEDS ORDERED: GLYCOPYRROLATE 0.2 MG/ML (ROBINUL) 2 ML VIAL ONE (11:29)
--- NOTE | 2020-05-02 11:32 | Electrophysiology Procedure ---
EP Procedure PSVT ablation operative report DATE OF SERVICE:05/02/20 REFERRING TEMPLATE FITTER: Glory Foster MD, [facility] CARDIAC SOLUTIONS CONSULTANT: Caryn Dubose MD, [facility] INDICATION: PSVT. PREOPERATIVE DIAGNOSIS: PSVT POSTOPERATIVE DIAGNOSES: typical AVNRT, successful slow pathway modification. HISTORY: this is a 59-year-old gentleman referred by Dr. Foster for clinical PSVT which responded to adenosine. The patient is planned for comprehensive EP study and ablation. PROCEDURE PERFORMED: 1. Comprehensive EP study with induction. 2. Fluoroscopy. 3. left atrial pacing and recording. 4. Drug infusion. 5. Ablation of typical AVNRT. 6. Comprehensive 3D mapping with the carto system. COMPLICATION: None. ESTIMATED BLOOD LOSS: 10 mL. CONTRAST USED: None. FLUOROSCOPY TIME: 12.1 FLUOROSCOPY DOSE: 542 mgy. SPECIMENS: None. ANESTHESIA: Done by our anesthesia colleagues. ANTICOAGULATION: Not on oral anti-coagulation. PROCEDURE IN DETAIL: After informed consent was taken, the patient was brought to the EP lab. Anesthesia was provided by our anesthesia colleagues. The patient was draped and prepped in the usual sterile fashion. The patient presented to the EP lab in sinus rhythm. Access was gained in the right femoral vein with a 6-Ethiopian and an 8-Ethiopian sheath. Left access in left femoral vein was gained with 5-Ethiopian and 6-Ethiopian sheath respectively. High right atrial catheter was an laurel catheter, right ventricular catheter was placed, his catheter and the CS catheter were also placed. A comprehensive EP study was done including left atrial pacing and recording. tachycardia was not induced with rapid atrial pacing with and without Isuprel infusion. A 3D electroanatomic mapping was donewith the carto system. baseline EP study showed dual AV paty physiology with consistent double echoes. On Isuprel EP study with triples showed consistent double echoes. No tachycardia Was induced. Left atrial pacing and recording did not demonstrate left lateral Bypass tract. RV pacing showed concentric atrial activation. Double echoes Demonstrated short septal VA time. Diagnosis: Typical AVNRT (slow-fast). the area around the His bundle and septal inferior was mapped with Carto. possible Slow pathway was identified on 3-D mapping.also the area chosen for ablation Had A to V ratio of 1:10. no his potentials noted. ablation was performed for 4 minutes and 12 seconds. consistent junctional rhythm was demonstrated. Normal AV conduction throughout ablation. Post-ablation EP study did not demonstrate Dual AV paty physiology. Occasional single echoes were noted. Isuprel was given post-procedure,No tachycardia was induced. Double's and triples Were done which did not show dual AV paty physiology. Single echoes were noted However, double echoes were not noted. Brief A. fib with rapid atrial pacing. The patienttolerated the procedurewell and did not have any complication. The patientleft the lab in sinus rhythm. Total ablation time was 4 minutes and 12 seconds. MEASUREMENTS/EP STUDY: AH interval 163 ms, HV interval 42 ms, AR interval 254 ms, QRS duration 155 ms right bundle-branch pattern, QT interval 432 ms, R-R interval 881 ms, AV Wenckebach and pacing at 340 ms, Left atrial pacing and recording, AV Wenckebach when pacing at 310 ms, Retrograde Wenckebach when pacing at 440 ms. atrial ERP 600/280 ms, Ventricular ERP was 600/260 ms, On Isuprel AV Wenckebach when pacing at 320 ms, Atrial ERP 510/250 ms, Post-ablation: Atrial ERP 600/250 ms, On Isuprel, atrial ERP was 530/240 ms. PLAN: The patient will be observed overnight and will be discharged home tomorrow with precise followup instructions. Caryn Dubose MD, [facility] Cardiac Electrophysiology Jenifer DUBOSE MD May 02, 2020 11:32
[2020-05-02] MEDS ORDERED: PATIENT MAY USE OWN MEDS, ALL PO SCH (11:45)
--- NOTE | 2020-05-02 12:44 | Anesthesia-General Post-Op ---
General Patient Condition Mental Status/LOC: Same as Preop Cardiovascular: Satisfactory Nausea/Vomiting: Absent Respiratory: Satisfactory Pain: Controlled Complications: Absent Post Op Complications Complications None Follow Up Care/Instructions Patient Instructions None needed. Anesthesia/Patient Condition Patient Condition Patient is doing well, no complaints, stable vital signs, no apparent adverse anesthesia problems. No complications reported per nursing. TAMAR PAULINO CRNA May 02, 2020 12:43
--- NOTE | 2020-05-02 12:45 | NUR ---
DESMOND CROFT admitted to room CU12-1, with an admitting diagnosis of Right EP, on 05/02/20 from Recovery, accompanied by drop forger. DESMOND CROFT introduced to surroundings, call light, bed controls, phone, TV, temperature control, lights, meal times, smoking policy, visitor policy, side rail policy, bathrooms and showers. Patient Rights given to patient in the handbook. DESMOND CROFT verbalizes understanding that [facility] is not responsible for the loss or damage to any personal effects or valuables that are kept in the patients posession during their hospitalization. The following Patient Care Plans were discussed with the patient: Discharge Planning. DESMOND CROFT verbalizes understanding of Interdisciplinary Patient Education. Patient and/or family were informed about the Rapid Response Team and its purpose.
[2020-05-02] MEDS: NS IV 1000 ML 1,000 ML IV SCH (13:41)
[2020-05-02] MEDS: PANTOPRAZOLE 40 MG (PROTONIX) TAB PO SCH (21:22)
--- NOTE | 2020-05-02 22:30 | NUR ---
THIS RN RECEIVED REPORT FROM BLANQUITA PATRICIO.
[2020-05-03] VITALS: BP 125/65
[2020-05-03 03:43] LABS: HEMOGLOBIN 13.8 G/DL (13.3-17.7); WHITE BLOOD COUNT 7.7 10^3/uL (4.3-11.0)
[2020-05-03 04:00] VITALS: BP 118/58
[2020-05-03] MEDS: NS IV 1000 ML 1,000 ML IV SCH ×2 (04:00→08:55)
[2020-05-03 04:14] LABS: CHLORIDE 108 MMOL/L (98-107); POTASSIUM 3.6 MMOL/L (3.6-5.0); SODIUM 140 MMOL/L (135-145)
[2020-05-03 04:15] LABS: CALCIUM 8.3 MG/DL (8.5-10.1)
[2020-05-03 04:16] LABS: GLUCOSE 184 MG/DL (70-105)
[2020-05-03 04:17] LABS: CARBON DIOXIDE 22 MMOL/L (21-32)
[2020-05-03 04:19] LABS: CREATININE SERUM 1.04 MG/DL (0.60-1.30); GFR ESTIMATED > 60
[2020-05-03 04:20] LABS: BUN/CREATININE RATIO 12
--- NOTE | 2020-05-03 08:40 | Cardiology Discharge Summary ---
Diagnosis/Chief Complaint Date of Admission 05/02/2020 Date of Discharge 05/03/2020 Admission Diagnosis PSVT Final/Discharge Diagnosis Typical AVNRT, successful ablation Chief Complaint/HPI Chief Complaint/HPI This is a 59-year-old gentleman who was referred by Dr. Foster for PSVT. Discharge Summary Procedures EP study showed dual AV paty physiology with consistent double echoes. Slow pathway modification, successful ablation for typical AVNRT. Discharge Physical Examination Normal cardiovascular examination. Hospital Course Was the Problem List Reviewed?: Yes Unremarkable Pending Labs Laboratory Tests 05/03/20 03:05: White Blood Count 7.7, Red Blood Count 4.25, Hemoglobin 13.8, Hematocrit 38, Mean Corpuscular Volume 89, Mean Corpuscular Hemoglobin 33, Mean Corpuscular Hemoglobin Concent 36, Red Cell Distribution Width 13.0, Platelet Count 149, Mean Platelet Volume 9.0, Sodium Level 140, Potassium Level 3.6, Chloride Level 108, Carbon Dioxide Level 22, Anion Gap 10, Blood Urea Nitrogen 12, Creatinine 1.04, Estimat Glomerular Filtration Rate > 60, BUN/Creatinine Ratio 12, Glucose Level 184, Calcium Level 8.3 Discussion & Recommendations Discussion Discharge took over 30 minutes to complete. The procedure was discussed at [facility] with the patient. All the discharge instructions and restrictions were discussed at length. Patient will continue the same medication. I'll see him next week. Follow up appt.: Dr. Dubose next week. Dicharge Diet: Cardiac Diet Activity as Tolerated: Yes Home Medications Reviewed patient Home Medication Reconciliation performed by pharmacy medication reconciliations nuclear reactor technician and/or nursing. Patients Allergies have been reviewed. Discharge Home Medications: Reviewed and agree with Discharge Medication list on patient's Discharge Instruction sheet Condition at discharge Stable. Instructions to patient/family Discussed at length with the patient and family. Clinical Quality Measures DVT/VTE Risk/Contraindication: Risk Factor Score Per Nursin RFS Level Per Nursing on Admit: 3=Jenifer Mckay MD May 03, 2020 08:40
--- NOTE | 2020-05-03 08:41 | Discharge Inst-Post CATH ---
Discharge Inst-CATH/EP Problems Reviewed?: Yes Final Diagnosis PSVT, typical AVNRT, successful ablation Post Cardiac Cath/EP D/C Inst Follow Up/Plan Dr. Dubose next week <b>CARDIAC CATH/EP PROCEDURE DISCHARGE INSTRUCTIONS</b> ACTIVITY * Go Home directly and rest. * Limit activity of the leg (or wrist if it was used) for 7 days including aerobics, swimming, jogging, bicycling, etc. * Restrict stair-climbing for 7 days if possible, if not, climb up with your non-cath leg, then bring together on the same step. * Avoid lifting, pushing, pulling or excessive movement of the affected extremity for 7 days. * Customary sexual activity may be resumed after 2 days-use caution not to use a position that strains or causes pain to the affected extremity. * No driving for 24 hours. * NO SMOKING. * Avoid straining for bowel movements for 7 days. * Gentle walking on level ground is allowed. * Returning to work will depend on the type of procedure and the results. Your doctor will discuss this with you. CALL YOUR DOCTOR FOR ANY OF THE FOLLOWING: *If bleeding from the puncture site occurs- Apply gentle pressure to site with clean cloth and call your doctor or EMS. * If a knot or lump forms under the skin, increases in size, or causes pain. * If bruising appears to be worsening or moving further down your leg instead of disappearing. * Temperature above 101 F. CARE OF YOUR GROIN INCISION; * Bruising or purple discoloration of the skin near the puncture site is common. * You may shower only, no bathtub bathing for 5 days. Be careful to avoid sli pping as your leg may feel stiff. * If a closure device was used on your femoral artery, please see the attached guide regarding care of the device and your leg. * Leave dressing on FOR 24 hours. CARE OF YOUR WRIST INCISION; * Bruising or purple discoloration of the skin near the puncture site is common. * You may shower. * DO NOT submerge wrist. * Leave dressing on FOR 24 hours. Jenifer DUBOSE MD May 03, 2020 08:41
[2020-05-03] MEDS ORDERED: GLIMEPIRIDE 4 MG (AMARYL) TAB PO SCH (09:00)
[2020-05-03] MEDS ORDERED: ASPIRIN 81 MG CHEW (CHILDREN'S ASA) PO SCH (09:00)
[2020-05-03] MEDS: PANTOPRAZOLE 40 MG (PROTONIX) TAB PO SCH (09:22)
== END 2020-05-03 10:35 | disposition home or self-care (01) ==
LOC: CATH 08:00 → ICU 12:46 → CATH 05-03 10:35
PROVIDERS: ATTEND Internal Medicine Interventional Cardiology
DX: I47.1 Supraventricular tachycardia (principal); I25.10 Atherosclerotic heart disease of native coronary artery without angina pectoris; I42.2 Other hypertrophic cardiomyopathy; G47.33 Obstructive sleep apnea (adult) (pediatric); I77.89 Other specified disorders of arteries and arterioles; K50.90 Crohn's disease, unspecified, without complications; E55.9 Vitamin D deficiency, unspecified; F17.290 Nicotine dependence, other tobacco product, uncomplicated; I45.2 Bifascicular block; E11.40 Type 2 diabetes mellitus with diabetic neuropathy, unspecified; K21.9 Gastro-esophageal reflux disease without esophagitis; J44.9 Chronic obstructive pulmonary disease, unspecified; Z99.89 Dependence on other enabling machines and devices; Z79.82 Long term (current) use of aspirin; Z79.899 Other long term (current) drug therapy; Z79.84 Long term (current) use of oral hypoglycemic drugs; Z11.2 Encounter for screening for other bacterial diseases
CPT/HCPCS: 80048; 80053; 82962; 85027 ×2; 85610; 85730; 87081; 93005 ×2; 93613; 93653; C1730 ×3; C1732; 36415

== ENCOUNTER 2023-07-21 17:12 | Inpatient (IN) | payer BC, OTHER ==
[~2023-07-21] VITALS: Ht 190.5 cm; Wt 117.5 kg
[~2023-07-21 17:12] MED LIST changes: -HEParin (CATH LAB) 1,000 ML IV ONE; -ISOPROTERENOL 0.2 MG/D5W 50 ML IV ONE; -LIDOCAINE 1% INJ 20 ML 20 ML VIAL ONE; -LIDOCAINE BOLUS 100 MG/5 ML (IMS) SYR ONE; -MECL-149 PO; +MECL-291 PO; -MIDAZOLAM 2 MG/2 ML (VERSED) VIAL ONE; -NS IV 1000 ML 1,000 ML IV SCH; -NS IV 1000 ML 1,000 ML ONE; -ONDANSETRON 4 MG/2 ML (SDV) Z0FRAN ONE; -PANT40TA3; -PANT40TA3 PO; +PANT40TA52; +PANT40TA52 PO; -ROCURONIUM 10 MG/ML 5 ML SYRINGE IV ONE; -SUCCINYLCHOLINE INJ 100 MG/5 ML SYR/VIAL ONE; -fentaNYL INJECTION 100 MCG/2 ML AMP ONE; -proPOfol 200 MG/20 ML (DIPRIVAN) VIAL IV ONE
[2023-07-21 18:06] LABS: ALBUMIN 4.5 GM/DL (3.2-4.5); POTASSIUM 3.7 MMOL/L (3.6-5.0)
--- NOTE | 2023-07-21 18:06 | ED Abdominal Pain ---
General Chief Complaint: Abdominal/GI Problems Stated Complaint: VOMITING Nursing Triage Note: PT TO RM 5 BY EMS WITH CC OF NAUSEA AND VOMITING SINCE THIS AM. PT DENIES ABD PAIN AT THIS TIME. EMS REPORTS GIVING PT 4MG ZOFRAN TRANSACTIONAL PARALEGAL. Source of Information: Patient Exam Limitations: No Limitations (VENANCIO CARVER APRN) History of Present Illness Date Seen by Provider: Jul 21, 2023 Time Seen by Provider: 17:18 Initial Comments 62-year-old presents to the ER via EMS for reports of vomiting all day. He thinks he has vomited approximately 10-20 times. Complains of mid lower abdominal pain. He has a history of Crohn's disease, has an ileostomy due to his Crohn's disease. He used to have a colostomy. He states that he has had not had any output in his ostomy for a day or two. He has been passing gas. He states he is concerned for a blockage. Patient has a hernia at site of ileostomy, patient states he has always had it, denies any change to it. Denies fevers, chest pain, shortness of air, diarrhea. Patient reports his only abdominal surgery was his ostomies. EMS 4 mg of Zofran, patient reports improved nausea after the Zofran. Patient also receiving 1 L of IV fluids from EMS. Other past medical history includes diabetes. He also reports history of atrial fibrillation, but states he has had an ablation which fixed it. (VENANCIO CARVER APRN) Allergies and Home Medications Allergies Coded Allergies: No Known Drug Allergies (Unverified , 04/07/18) Patient Home Medication List Home Medication List Reviewed: Yes (VENANCIO CARVER APRN) Dapagliflozin Propanediol (Farxiga) 10 Mg Tablet, 10 MG PO DAILY, (Reported) Entered as Reported by: SHIRA YEBOAH on 07/22/231046 Last Action: Reviewed Glimepiride (Glimepiride) 4 Mg Tablet, 4 MG PO BID, (Reported) Entered as Reported by: SHIRA YEBOAH on 07/22/231046 Last Action: Reviewed Metformin HCl (Metformin HCl) 1,000 Mg Tablet, 1,000 MG PO BID, (Reported) Entered as Reported by: SHIRA YEBOAH on 07/22/231046 Last Action: Reviewed Pantoprazole Sodium (Pantoprazole Sodium) 40 Mg Tablet.dr, 40 MG PO DAILY, (Reported) Entered as Reported by: SHIRA YEBOAH on 07/22/231046 Last Action: Reviewed Rosuvastatin Calcium (Rosuvastatin Calcium) 20 Mg Tablet, 20 MG PO HS, (Reported) Entered as Reported by: SHIRA YEBOAH on 07/22/231046 Last Action: Reviewed Semaglutide (Ozempic) 1 Mg/0.75 Ml (4 Mg/3 Ml) Pen.injctr, 1 MG SQ SATURDAY, (Reported) Entered as Reported by: SHIRA YEBOAH on 07/22/231046 Last Action: Reviewed Review of Systems Review of Systems Constitutional: see HPI (VENANCIO CARVER APRN) Past Lkhgvee-Twriip-Apymca Hx Patient Social History Tobacco Use?: Yes Tobacco type used: Cigars Smoking Status: Current Everyday Smoker Substance use?: No Alcohol Use?: Yes Alcohol Frequency: Once in a while (VENANCIO CARVER APRN) Immunizations Up To Date Tetanus Booster (TDap): Unknown (VENANCIO CARVER APRN) Seasonal Allergies Seasonal Allergies: No (VENANCIO CARVER APRN) Past Medical History Surgery/Hospitalization HX: AFIB, DM2 Surgeries: Yes (COLECTOMY, Esophageal dilatation,ILEOSTOMY) Abdominal, Bowel Surgery, Cardiac Respiratory: No Sleep Apnea Currently Using CPAP: Yes Currently Using BIPAP: No Cardiac: Yes (right bundle branch block, PSVT) Neurological: Yes Neuropathy, Vertigo Reproductive Disorders: No Sexually Transmitted Disease: No Genitourinary: No Gastrointestinal: Yes Gastroesophageal Reflux, Crohns Disease Musculoskeletal: No Endocrine: Yes Diabetes, Non-Insulin dep HEENT: No Cancer: No Psychosocial: No Integumentary: No Blood Disorders: No (VENANCIO CARVER APRN) Family Medical History Cancer, Other Conditions/Hx (VENANCIO CARVER APRN) Physical Exam Vital Signs Vital Signs - First Documented 07/21/23 17:13 Temp 35.2 Pulse 110 Resp 18 B/P (MAP) 136/78 (97) Pulse Ox 95 O2 Delivery Room Air (HALEIGH SANCHES MD) Vital Signs Capillary Refill : Less Than 3 Seconds (VENANCIO CARVER APRN) Height/Weight/BMI Height: 6'3.00" Weight: 295lbs. 0.0oz. 133.460920bw; 34.00 BMI Method:Stated General Appearance: WD/WN, no apparent distress Neck: supple, normal inspection Respiratory: lungs clear, normal breath sounds, no respiratory distress, no accessory muscle use Cardiovascular: regular rate, rhythm Gastrointestinal: normal bowel sounds, soft; No guarding; tenderness (All 4 quadrants), hernia (At site of ileostomy) Extremities: normal range of motion, normal inspection Neurologic/Psychiatric: alert, normal mood/affect Skin: normal color, warm/dry (VENANCIO CARVER R GRINDER NEEDLE TIP) Procedures/Interventions Suture Size: 4-0 (VENANCIO CARVER R GRINDER NEEDLE TIP) Progress/Results/Core Measures Results/Orders Lab Results Laboratory Tests Test 07/21/23 17:21 07/21/23 17:51 07/21/23 20:40 Range/Units White Blood Count 4.2 L 4.3-11.0 10^3/uL Red Blood Count 5.62 H 4.30-5.52 10^6/uL Hemoglobin 17.9 H 13.3-17.7 g/dL Hematocrit 50 40-54 % Mean Corpuscular Volume 88 80-99 fL Mean Corpuscular Hemoglobin 32 25-34 pg Mean Corpuscular Hemoglobin Concent 36 32-36 g/dL Red Cell Distribution Width 12.7 10.0-14.5 % Platelet Count 181 130-400 10^3/uL Mean Platelet Volume 9.4 9.0-12.2 fL Immature Granulocyte % (Auto) 0 % Neutrophils (%) (Auto) 86 H 42-75 % Lymphocytes (%) (Auto) 6 L 12-44 % Monocytes (%) (Auto) 7 0-12 % Eosinophils (%) (Auto) 0 0-10 % Basophils (%) (Auto) 1 0-10 % Neutrophils # (Auto) 3.6 1.8-7.8 10^3/uL Lymphocytes # (Auto) 0.3 L 1.0-4.0 10^3/uL Monocytes # (Auto) 0.3 0.0-1.0 10^3/uL Eosinophils # (Auto) 0.0 0.0-0.3 10^3/uL Basophils # (Auto) 0.0 0.0-0.1 10^3/uL Immature Granulocyte # (Auto) 0.0 0.0-0.1 10^3/uL Neutrophils % (Manual) 60 % Lymphocytes % (Manual) 7 % Monocytes % (Manual) 12 % Eosinophils % (Manual) 2 % Basophils % (Manual) 1 % Band Neutrophils 18 % Blood Morphology Comment NORMAL Sodium Level 137 135-145 MMOL/L Potassium Level 3.7 3.6-5.0 MMOL/L Chloride Level 105 98-107 MMOL/L Carbon Dioxide Level 14 L 21-32 MMOL/L Anion Gap 18 H 5-14 MMOL/L Blood Urea Nitrogen 25 H 7-18 MG/DL Creatinine 1.09 0.60-1.30 MG/DL Estimat Glomerular Filtration Rate 78 BUN/Creatinine Ratio 23 Glucose Level 248 H 70-105 MG/DL Calcium Level 9.6 8.5-10.1 MG/DL Corrected Calcium 9.2 8.5-10.1 MG/DL Total Bilirubin 2.7 H 0.1-1.0 MG/DL Aspartate Amino Transf (AST/SGOT) 27 5-34 U/L Alanine Aminotransferase (ALT/SGPT) 32 0-55 U/L Alkaline Phosphatase 80 40-136 U/L Total Protein 8.6 H 6.4-8.2 GM/DL Albumin 4.5 3.2-4.5 GM/DL Lipase 14 8-78 U/L Beta-Hydroxybutyrate (Chem panel) 1.73 H 0.00-0.27 MMOL/L Glucometer 247 H 70-110 MG/DL Urine Color YELLOW Urine Clarity CLEAR Urine pH 5.0 5-9 Urine Specific [place] 1.020 1.016-1.022 Urine Protein 1+ H NEGATIVE Urine Glucose (UA) 3+ H NEGATIVE Urine Ketones 1+ H NEGATIVE Urine Nitrite NEGATIVE NEGATIVE Urine Bilirubin 2+ H NEGATIVE Urine Urobilinogen 0.2 < = 1.0 MG/DL Urine Leukocyte Esterase NEGATIVE NEGATIVE Urine RBC (Auto) NEGATIVE NEGATIVE Urine RBC NONE /HPF Urine WBC RARE /HPF Urine Squamous Epithelial Cells RARE /HPF Urine Crystals PRESENT H /LPF Urine Amorphous Sediment FEW JAROCHO URATES H /LPF Urine Bacteria TRACE /HPF Urine Casts PRESENT /LPF Urine Hyaline Casts 25-50 H /LPF Urine Mucus NEGATIVE /LPF Urine Culture Indicated NO (HALEIGH SANCHES MD) Vital Signs/I&O 07/21/23 17:13 Temp 35.2 Pulse 110 Resp 18 B/P (MAP) 136/78 (97) Pulse Ox 95 O2 Delivery Room Air 07/21/23 23:59 Intake Total 400 ml Balance 400 ml (HALEIGH SANCHES MD) Blood Pressure Mean: 97 FSBG Bedside Testing Finger Stick Blood Glucose: 247 (VENANCIO CARVER APRN) Progress Progress Note : Progress Note Patient seen and evaluated, resting in bed, no acute distress. Based on exam and symptoms, differential diagnosis includes but is not limited to DKA, gastroenteritis, small bowel obstruction, other intra-abdominal pathology. Workup initiated including CBC, CMP, lipase, UA, Accu-Chek, beta hydroxybutyrate. Patient was already given Zofran by EMS, a liter of IV fluids also hanging from EMS. 1840 Labs reviewed. CBC shows slightly elevated RBC 5.62, slightly elevated hemoglobin 17.9, neutrophil percentage elevated 86. CMP shows decreased CO2 14, slightly elevated anion gap 18, BUN elevated 25, creatinine levels show no evidence of renal dysfunction., GFR 78. Glucose elevated 248. Total bilirubin elevated 2.7. Protein slightly elevated 8.6. Lipase normal. Beta hydroxybutyrate 1.73. CT abdomen pelvis ordered. Second liter of IV fluids ordered. [address] shows right lower quadrant ileostomy with peristomal hernia. It shows herniated small bowel through the ostomy with transition consistent with high degree obstruction. I reevaluated patient. I emptied the ostomy bag, it did have liquid stool. Patient reports that the liquid stool is normal for him. Patient's vomit looks exactly the same as the liquid stool from the ostomy bag. He is likely vomiting fecal matter. He vomited while in CT, the security alarm technician states that the vomit smells of feces. The room smells of feces. Results discussed with patient. Patient informed that he would need to be adm itted to the hospital. Patient agrees to admission. I called and spoke with Dr. Desir, regarding the findings. He would like the hospitalist to admit and he will consult. He does not think he will take the patient to the OR right away. He would like patient to be NPO. I called and spoke with Dr. Dumont, hospitalist, regarding patient. She agrees to admit patient. She would like me to place admission orders. She would like patient placed on sliding scale A for insulin, and be admitted to the MedSurg unit as an inpatient. Patient would like to be a DNR. NG tube has been ordered and placed by nursing staff. Patient's nausea has improved after NG placement. Compazine had been ordered for continued nausea, but patient did not need it after NG tube placement. Will order x-ray to verify placement. Urinalysis is pending. 2107 Urinalysis shows 1+ protein, 3+ glucose, 1+ ketones, 2+ bilirubin. Chest x-ray reviewed by me, NG tube visible within the stomach. 2114 chest x-ray read by radiologist. NG tube tip located at the body of the stomach. Heart size, mediastinum, and vascular appear prominent from prior. (VENANCIO CARVER APRN) Diagnostic Imaging Diagonstic Imaging: CT Plain Films/CT/US/NM/MRI: abdomen, pelvis Comments [facility] [place] NAME: [facility]ESMOND D [facility] REC#: [id number] PT STATUS: REG ER : 1960 PHYSICIAN: VENANCIO CARVER APRN ADMIT DATE: 07/21/23/ER Draft Date of Exam:07/21/23 CT ABDOMEN/PELVIS W PROCEDURE: CT abdomen and pelvis with contrast. TECHNIQUE: Multiple contiguous axial images were obtained through the abdomen and pelvis after administration of intravenous contrast. Auto Exposure Controls were utilized during the CT exam to meet ALARA standards for radiation dose reduction. All CT scans use one or more of the following dose optimizing techniques: automated exposure control, MA and/or KvP adjustment based on patient size and exam type or iterative reconstruction. INDICATION: 62-year-old male, lower abdominal pain with nausea, vomiting, constipation x 4 days. CORRELATION STUDY: None. FINDINGS: LOWER THORAX: Clear. Low esophagus is distended with fluid. LIVER: Mild fatty infiltration without focal lesion. GALLBLADDER: Mildly distended with small gallstone. SPLEEN: Unremarkable. PANCREAS: Unremarkable. ADRENAL GLANDS: Unremarkable. KIDNEYS: Normal configuration. No calcification or obstruction. ABDOMINAL AORTA: Unremarkable, nonaneurysmal. GASTROINTESTINAL TRACT: Stomach distended with fluid. There is a moderate to marked small bowel distention with fluid. Dilated small bowel up to 4 cm. Post apparent colostomy with the right lower quadrant ileostomy. Herniated small bowel through the ostomy with transition consistent with a high degree obstruction. There is both markedly dilated and decompressed small bowel within the ostomy hernia. Some slight haziness is noted. No definitive pneumatosis. Small volume perihepatic fluid. URINARY BLADDER: Unremarkable. REPRODUCTIVE: Unremarkable. OSSEOUS STRUCTURES: No acute abnormality. IMPRESSION: 1. Right lower quadrant ileostomy with peristomal hernia. The herniated small bowel with marked, high degree small bowel obstruction at the ostomy site. Surgical consultation recommended. Dictated on workstation # [id number] Dict: 07/21/231931 Trans: 07/21/231941 PJE [id number] Interpreted by: VIKAS SIM DO Electronically signed by: Diony Imaging: Xray Plain Films/CT/US/NM/MRI: chest Comments [facility], [place] NAME: DESMOND CROFT [facility] REC#: [id number] PT STATUS: ADM IN : 1960 PHYSICIAN: VENANCIO CARVER APRN ADMIT DATE: 07/21/23 Draft Date of Exam:07/21/23 CHEST 1 VIEW, AP/PA ONLY INDICATION: NG placement. TECHNIQUE: Single view chest, 8:39 PM. CORRELATION STUDY: 11/30/2019. FINDINGS: Gastric tube is present, tip appears to be at the level of the body of the stomach. Heart size and mediastinum, as well as vasculature, are enlarged and prominent appearing increased from prior. The lungs are clear with no consolidating infiltrate. There is no significant effusion or pneumothorax. IMPRESSION: 1. NG tube tip at the body of the stomach. 2. Heart size, mediastinum and vasculature appear prominent from prior. Nonspecific. Short-term follow-up two-view chest recommended. Dictated on workstation # [id number] Dict: 07/21/232106 Trans: 07/21/232111 PJE [id number] Interpreted by: VIKAS SIM DO Electronically signed by: (VENANCIO CARVER APRN) Departure Communication (Admissions) Time/Spoke to Admitting Phy: 20:02 Dr. Dumont, hospitalist, see progress note. Time/Spoke to Consulting Phy: 19:56 Dr. Desir, surgery, see progress note. (VENANCIO CARVER APRN) Impression Primary Impression: Small bowel obstruction Additional Impression: Peristomal hernia Disposition: ADMITTED INPATIENT Condition: Stable Admissions Decision to Admit Reason: Admit from ER (General) Decision to Admit/Date: Jul 21, 2023 Time/Decision to Admit Time: 19:56 (VENANCIO CARVER APRN) Departure-Patient Inst. Referrals: KRISTAL BABIN MD (PCP/Family) Primary Care Physician ATTENDING PHYSICIAN NOTE: I was physically present as attending physician in the emergency department during the care of this patient, but I was not directly involved in the decision making or delivery of care for this patient. (HALEIGH SANCHES MD) VENANCIO CARVER APRN Jul 21, 2023 18:06 HALEIGH SANCHES MD Jul 22, 2023 20:58
[2023-07-21 18:07] LABS: BASOPHILS % (AUTO) 1 % (0-10); CALCIUM 9.6 MG/DL (8.5-10.1); EOSINOPHILS % (AUTO) 0 % (0-10); HEMATOCRIT 50 % (40-54); HEMOGLOBIN 17.9 g/dL (13.3-17.7); LYMPHOCYTES # (AUTO) 0.3 10^3/uL (1.0-4.0); LYMPHOCYTES % (AUTO) 6 % (12-44); MEAN CORPUSCULAR HEMOGLOBIN 32 pg (25-34); MEAN CORPUSCULAR HGB CONC 36 g/dL (32-36); MEAN CORPUSCULAR VOLUME 88 fL (80-99); MEAN PLATELET VOLUME 9.4 fL (9.0-12.2); MONOCYTES # (AUTO) 0.3 10^3/uL (0.0-1.0); MONOCYTES % (AUTO) 7 % (0-12); NEUTROPHILS # (AUTO) 3.6 10^3/uL (1.8-7.8); NEUTROPHILS % (AUTO) 86 % (42-75); PLATELET COUNT 181 10^3/uL (130-400); WHITE BLOOD COUNT 4.2 10^3/uL (4.3-11.0)
[2023-07-21 18:08] LABS: TOTAL PROTEIN 8.6 GM/DL (6.4-8.2)
[2023-07-21 18:10] LABS: BILIRUBIN,TOTAL 2.7 MG/DL (0.1-1.0)
[2023-07-21 18:12] LABS: CREATININE SERUM 1.09 MG/DL (0.60-1.30)
[2023-07-21 18:32] LABS: BAND NEUTROPHILS 18 %; BASOPHILS % (MANUAL) 1 %; EOSINOPHILS % (MANUAL) 2 %; LYMPHOCYTES % (MANUAL) 7 %; MONOCYTES % (MANUAL) 12 %; NEUTROPHILS % (MANUAL) 60 %
[2023-07-21 18:33] LABS: RBC MORPH NORMAL
[2023-07-21] MEDS ORDERED: NS IV 1000 ML 1,000 ML IV SCH (18:45)
[2023-07-21] MEDS ORDERED: ONDANSETRON INJECTION 4 MG/2 ML (SDV) ONE (19:13)
[2023-07-21] MEDS ORDERED: ONDANSETRON INJECTION 4 MG/2 ML (SDV) IVP ONE (19:15)
[2023-07-21] MEDS ORDERED: IOHEXOL 350 MG/ML 100 ML (OMNIPAQUE 350) VIAL IV ONE (19:30)
[2023-07-21] MEDS ORDERED: HOLD METFORMIN - RECEIVED CONTRAST 20 ML VIAL IV SCH (19:30)
[2023-07-21] MEDS ORDERED: NS 100 ML (IVPB) BAG IV ONE (19:30)
--- NOTE | 2023-07-21 19:44 | Diagnostic Imaging Report ---
PROCEDURE: CT abdomen and pelvis with contrast. TECHNIQUE: Multiple contiguous axial images were obtained through the abdomen and pelvis after administration of intravenous contrast. Auto Exposure Controls were utilized during the CT exam to meet ALARA standards for radiation dose reduction. All CT scans use one or more of the following dose optimizing techniques: automated exposure control, MA and/or KvP adjustment based on patient size and exam type or iterative reconstruction. INDICATION: 62-year-old male, lower abdominal pain with nausea, vomiting, constipation x 4 days. CORRELATION STUDY: None. FINDINGS: LOWER THORAX: Clear. Low esophagus is distended with fluid. LIVER: Mild fatty infiltration without focal lesion. GALLBLADDER: Mildly distended with small gallstone. SPLEEN: Unremarkable. PANCREAS: Unremarkable. ADRENAL GLANDS: Unremarkable. KIDNEYS: Normal configuration. No calcification or obstruction. ABDOMINAL AORTA: Unremarkable, nonaneurysmal. GASTROINTESTINAL TRACT: Stomach distended with fluid. There is a moderate to marked small bowel distention with fluid. Dilated small bowel up to 4 cm. Post apparent colostomy with the right lower quadrant ileostomy. Herniated small bowel through the ostomy with transition consistent with a high degree obstruction. There is both markedly dilated and decompressed small bowel within the ostomy hernia. Some slight haziness is noted. No definitive pneumatosis. Small volume perihepatic fluid. URINARY BLADDER: Unremarkable. REPRODUCTIVE: Unremarkable. OSSEOUS STRUCTURES: No acute abnormality. IMPRESSION: 1. Right lower quadrant ileostomy with peristomal hernia. The herniated small bowel with marked, high degree small bowel obstruction at the ostomy site. Surgical consultation recommended. Dictated by: Dictated on workstation # [id number]
[2023-07-21] MEDS ORDERED: HURRICAINE EXT TUBE (BENZOCAINE) XX ONE (20:00)
[2023-07-21] MEDS ORDERED: PROCHLORPERAZINE INJ 10 MG/2ML VIAL IV ONE (20:00)
[2023-07-21 20:58] LABS: BACTERIA,URINE TRACE /HPF; BILIRUBIN,URINE 2+ (NEGATIVE); CLARITY,URINE CLEAR; COLOR,URINE YELLOW; GLUCOSE, URINE (UA) 3+ (NEGATIVE); KETONES,URINE 1+ (NEGATIVE); LEUKOCYTE ESTERASE ,URINE NEGATIVE (NEGATIVE); NITRITE,URINE NEGATIVE (NEGATIVE); PROTEIN,URINE 1+ (NEGATIVE); SQUAMOUS EPITHELIAL CELL,UR RARE /HPF; WBC,URINE RARE /HPF
[2023-07-21 20:59] LABS: AMORPHOUS SEDIMENT,UR FEW AMOR URATES /LPF; HYALINE CASTS, URINE 25-50 /LPF
--- NOTE | 2023-07-21 21:12 | Diagnostic Imaging Report ---
INDICATION: NG placement. TECHNIQUE: Single view chest, 8:39 PM. CORRELATION STUDY: 11/30/2019. FINDINGS: Gastric tube is present, tip appears to be at the level of the body of the stomach. Heart size and mediastinum, as well as vasculature, are enlarged and prominent appearing increased from prior. The lungs are clear with no consolidating infiltrate. There is no significant effusion or pneumothorax. IMPRESSION: 1. NG tube tip at the body of the stomach. 2. Heart size, mediastinum and vasculature appear prominent from prior. Nonspecific. Short-term follow-up two-view chest recommended. Dictated by: Dictated on workstation # [id number]
[2023-07-21 21:43] VITALS: BP 110/63
[2023-07-21] MEDS ORDERED: NS IV 1000 ML 1,000 ML ONE (21:59)
[2023-07-21] MEDS ORDERED: HYDROmorphone INJECTION 2 MG/ML VIAL IV PRN (22:30)
[2023-07-21] MEDS ORDERED: ONDANSETRON INJECTION 4 MG/2 ML (SDV) IV PRN (22:30)
[2023-07-21] MEDS ORDERED: fentaNYL INJECTION 100 MCG/2 ML VIAL IV PRN (22:30)
[2023-07-21] MEDS ORDERED: PROCHLORPERAZINE INJ 10 MG/2ML VIAL IV PRN (22:30)
[2023-07-21] MEDS: NS IV 1000 ML 1,000 ML IV SCH (23:06)
[2023-07-22] VITALS (7 sets, daily range): BP systolic 112–133; BP diastolic 61–81
[2023-07-22 05:24] LABS: BASOPHILS # (AUTO) 0.1 10^3/uL (0.0-0.1); BASOPHILS % (AUTO) 1 % (0-10); EOSINOPHILS # (AUTO) 0.2 10^3/uL (0.0-0.3); EOSINOPHILS % (AUTO) 3 % (0-10); HEMATOCRIT 45 % (40-54); HEMOGLOBIN 16.4 g/dL (13.3-17.7); LYMPHOCYTES # (AUTO) 0.5 10^3/uL (1.0-4.0); LYMPHOCYTES % (AUTO) 10 % (12-44); MEAN CORPUSCULAR HEMOGLOBIN 32 pg (25-34); MEAN CORPUSCULAR HGB CONC 36 g/dL (32-36); MEAN CORPUSCULAR VOLUME 89 fL (80-99); MEAN PLATELET VOLUME 9.4 fL (9.0-12.2); MONOCYTES # (AUTO) 0.7 10^3/uL (0.0-1.0); MONOCYTES % (AUTO) 14 % (0-12); NEUTROPHILS # (AUTO) 3.6 10^3/uL (1.8-7.8); NEUTROPHILS % (AUTO) 72 % (42-75); PLATELET COUNT 171 10^3/uL (130-400)
[2023-07-22 05:26] LABS: SMEAR SCAN COMMENT YES
[2023-07-22 05:35] LABS: POTASSIUM 3.2 MMOL/L (3.6-5.0)
[2023-07-22 05:36] LABS: CALCIUM 9.1 MG/DL (8.5-10.1)
[2023-07-22 05:41] LABS: CREATININE SERUM 1.29 MG/DL (0.60-1.30)
[2023-07-22] MEDS: inSUlin ASPART 1 UNIT/0.01 ML (PER UNIT) SC SCH ×4 (05:46→21:25)
--- NOTE | 2023-07-22 07:30 | Consultation - Surgery ---
NENA DOUGLAS 07/22/23 0729: History of Present Illness History of Present Illness Patient Consulted On(shahnaz/time) 07/22/23 07:24 History of Present Illness Pt is 62 yo man who came to the ED with massive vomiting all day yesterday and vomited almost 20 times and with concerns for an obstruction. He reports the vomit was yellow in color initially and then become yellow and darker brown as the day went on. He has not had any vomiting today, he was given a Zofran in the ED and reports that it helped. He noticed no output in his ileostomy bag 2 days ago but had quite a bit in it last night, it was darker in color than normal and it was full again this morning. He has not been passing gas today but doesnt feel bloated and doesn't feel his stomach is distended more than usual. Had some lower abdominal pain 2 days that was a 2/10 but the pain has since resolved. He is NPO today and has an NG tube. He got the ileostomy bag in 1997 due to [employer] hn's. He had a colostomy done in 1994 prior to having the ileostomy. He is unsure if he has had an obstruction before. He has a history of Afib but had an ablation 3 years ago and reports that it fixed it. Allergies and Home Medications Allergies Coded Allergies: No Known Drug Allergies (Unverified , 04/07/18) Patient Home Medication List Dapagliflozin Propanediol (Farxiga) 10 Mg Tablet, 10 MG PO DAILY, (Reported) Entered as Reported by: SHIRA YEBOAH on 07/22/231046 Last Action: Reviewed Glimepiride (Glimepiride) 4 Mg Tablet, 4 MG PO BID, (Reported) Entered as Reported by: SHIRA YEBOAH on 07/22/231046 Last Action: Reviewed Metformin HCl (Metformin HCl) 1,000 Mg Tablet, 1,000 MG PO BID, (Reported) Entered as Reported by: SHIRA YEBOAH on 07/22/231046 Last Action: Reviewed Pantoprazole Sodium (Pantoprazole Sodium) 40 Mg Tablet.dr, 40 MG PO DAILY, (Reported) Entered as Reported by: SHIRA YEBOAH on 07/22/231046 Last Action: Reviewed Rosuvastatin Calcium (Rosuvastatin Calcium) 20 Mg Tablet, 20 MG PO HS, (Reporte d) Entered as Reported by: SHIRA YEBOAH on 07/22/231046 Last Action: Reviewed Semaglutide (Ozempic) 1 Mg/0.75 Ml (4 Mg/3 Ml) Pen.injctr, 1 MG SQ SATURDAY, (Reported) Entered as Reported by: SHIRA YEBOAH on 07/22/231046 Last Action: Reviewed Past Whigayd-Kwkipt-Vgvrrr Hx Patient Social History Smoking Status: Current Everyday Smoker Type Used: Cigars (3 a day) 2nd Hand Smoke Exposure: Yes Recent Hopitalizations: No Alcohol Use?: Yes Immunizations Up To Date Tetanus Booster (TDap): Unknown Date of Influenza Vaccine: May 02, 2019 Seasonal Allergies Seasonal Allergies: No Surgeries History of Surgeries: Yes (COLECTOMY, Esophageal dilatation,ILEOSTOMY) Surgeries: Abdominal, Bowel Surgery, Cardiac, Orthopedic (R great toe surgery) Respiratory History of Respiratory Disorde: Yes Respiratory Disorders: Sleep Apnea Cardiovascular History of Cardiac Disorders: Yes (right bundle branch block, PSVT) Cardiac Disorders: Atrial Fibrillation Neurological History of Neurological Disord: Yes Neurological Disorders: Neuropathy (in b/l feet) Reproductive System Hx Reproductive Disorders: No Sexually Transmitted Disease: No Genitourinary History of Genitourinary Disor: No Gastrointestinal History of Gastrointestinal Di: Yes Gastrointestinal Disorders: Crohns Disease Musculoskeletal History of Musculoskeletal Dis: No Endocrine History of Endocrine Disorders: Yes Endocrine Disorders: Diabetes, Non-Insulin dep HEENT History of HEENT Disorders: No Loss of Vision: Denies Hearing Impairment: Denies Cancer History of Cancer: Yes Cancer: Skin (SCC) Psychosocial History of Psychiatric Problem: No Integumentary History of Skin or Integumenta: No Blood Transfusions History of Blood Disorders: No Family Medical History Significant Family History: Cancer (mom had bladder cancer), Other Conditions/Hx (Father had Parkinsons) Review of Systems-General Constitutional: No fever, No malaise, No weakness EENTM: No vision loss, No nose pain, No throat pain Respiratory: cough; No short of breath Cardiovascular: No chest pain, No palpitations Gastrointestinal: No abdominal pain, No nausea, No vomiting Genitourinary: No dysuria, No hematuria Musculoskeletal: No back pain, No muscle pain Skin: hx of skin cancer (SCC on ears and scalp); No rash Psychiatric/Neurological: Denies Headache, Denies Numbness Physical Exam-General Problems Physical Exam Vital Signs Vital Signs - First Documented 07/21/23 17:13 Temp 35.2 Pulse 110 Resp 18 B/P (MAP) 136/78 (97) Pulse Ox 95 O2 Delivery Room Air Capillary Refill : Less Than 3 Seconds General Appearance: WD/WN, obese Eyes: Bilateral Eye PERRL, Bilateral Eye EOMI HEENT: pharynx normal; No scleral icterus (R), No scleral icterus (L) Neck: non-tender, supple Respiratory: lungs clear, no respiratory distress, no accessory muscle use Cardiovascular: regular rate, rhythm, no edema Gastrointestinal: non tender, soft, other (ileostomy bag with outpouching of stomach around it, is soft to touch) Extremities: non-tender, no pedal edema Neurologic/Psychiatric: alert, oriented x 3 Skin: normal color, warm/dry, other (dry, cracked skin on b/l feet) Data Review Labs Laboratory Tests 07/21/23 17:21: White Blood Count 4.2L, Red Blood Count 5.62H, Hemoglobin 17.9H, Hematocrit 50, Mean Corpuscular Volume 88, Mean Corpuscular Hemoglobin 32, Mean Corpuscular Hemoglobin Concent 36, Red Cell Distribution Width 12.7, Platelet Count 181, Mean Platelet Volume 9.4, Immature Granulocyte % (Auto) 0, Neutrophils (%) (Auto) 86H, Lymphocytes (%) (Auto) 6L, Monocytes (%) (Auto) 7, Eosinophils (%) (Auto) 0, Basophils (%) (Auto) 1, Neutrophils # (Auto) 3.6, Lymphocytes # (Auto) 0.3L, Monocytes # (Auto) 0.3, Eosinophils # (Auto) 0.0, Basophils # (Auto) 0.0, Immature Granulocyte # (Auto) 0.0, Neutrophils % (Manual) 60, Lymphocytes % (Manual) 7, Monocytes % (Manual) 12, Eosinophils % (Manual) 2, Basophils % (Manual) 1, Band Neutrophils 18, Blood Morphology Comment NORMAL, Sodium Level 137, Potassium Level 3.7, Chloride Level 105, Carbon Dioxide Level 14L, Anion Gap 18H, Blood Urea Nitrogen 25H, Creatinine 1.09, Estimat Glomerular Filtration Rate 78, BUN/Creatinine Ratio 23, Glucose Level 248H, Calcium Level 9.6, Corrected Calcium 9.2, Total Bilirubin 2.7H, Aspartate Amino Transf (AST/SGOT) 27, Alanine Aminotransferase (ALT/SGPT) 32, Alkaline Phosphatase 80, Total Protein 8.6H, Albumin 4.5, Lipase 14, Beta-Hydroxybutyrate (Chem panel) 1.73H 07/21/23 17:51: Glucometer 247H 07/21/23 20:40: Urine Color YELLOW, Urine Clarity CLEAR, Urine pH 5.0, Urine Specific [place] 1.020, Urine Protein 1+H, Urine Glucose (UA) 3+H, Urine Ketones 1+H, Urine Nitrite NEGATIVE, Urine Bilirubin 2+H, Urine Urobilinogen 0.2, Urine Leukocyte Esterase NEGATIVE, Urine RBC (Auto) NEGATIVE, Urine RBC NONE, Urine WBC RARE, Urine Squamous Epithelial Cells RARE, Urine Crystals PRESENTH, Urine Amorphous Sediment FEW JAROCHO URATESH, Urine Bacteria TRACE, Urine Casts PRESENT, Urine Hyaline Casts 25-50H, Urine Mucus NEGATIVE, Urine Culture Indicated NO 07/21/23 21:57: Glucometer 228H 07/22/23 05:10: White Blood Count 5.0, Red Blood Count 5.07, Hemoglobin 16.4, Hematocrit 45, Mean Corpuscular Volume 89, Mean Corpuscular Hemoglobin 32, Mean Corpuscular H emoglobin Concent 36, Red Cell Distribution Width 13.0, Platelet Count 171, Mean Platelet Volume 9.4, Immature Granulocyte % (Auto) 0, Neutrophils (%) (Auto) 72, Lymphocytes (%) (Auto) 10L, Monocytes (%) (Auto) 14H, Eosinophils (%) (Auto) 3, Basophils (%) (Auto) 1, Neutrophils # (Auto) 3.6, Lymphocytes # (Auto) 0.5L, Mo nocytes # (Auto) 0.7, Eosinophils # (Auto) 0.2, Basophils # (Auto) 0.1, Immature Granulocyte # (Auto) 0.0, Sodium Level 139, Potassium Level 3.2L, Chloride Level 108H, Carbon Dioxide Level 17L, Anion Gap 14, Blood Urea Nitrogen 35H, Creatinine 1.29, Estimat Glomerular Filtration Rate 63, BUN/Creatinine Ratio 27, Glucose Level 247H, Glucometer 228H, Calcium Level 9.1, Smear Scan YES Assessment/Plan Assessment/Plan Assessment/Plan SBO Peristomal Hernia Ileostomy Crohns Disease Afib Diabetes Hypokalemia * NPO, will clamp NG tube and try clear liquids * Planning for hernia repair next week * Monitor electrolytes and replace as needed * Monitor ileostomy output GAYLA CANNON DO 07/22/232237: History of Present Illness History of Present Illness Time Seen by Provider: 12:54 History of Present Illness Surgery asked to consult regarding PSBO, Parastomal hernia HPI per ED: 62-year-old presents to the ER via EMS for reports of vomiting all day. He thinks he has vomited approximately 10-20 times. Complains of mid lower abdominal pain. He has a history of Crohn's disease, has an ileostomy due to his Crohn's disease. He used to have a colostomy. He states that he has had not had any output in his ostomy for a day or two. He has been passing gas. He states he is concerned for a blockage. Patient has a hernia at site of ileostomy, patient states he has always had it, denies any change to it. Denies fevers, chest pain, shortness of air, diarrhea. Patient reports his only abdominal surgery was his ostomies. EMS 4 mg of Zofran, patient reports improved nausea after the Zofran. Patient also receiving 1 L of IV fluids from EMS. Other past medical history includes diabetes. He also reports history of atrial fibrillation, but states he has had an ablation which fixed it. When I saw pt he was already feeling better and had been having lots of output in the ileostomy bag. He was still getting some fluid out of NGT, nurse stated appx 200ml from start of day shift. Pt denied N/V and abdominal pain. Allergies and Home Medications Allergies Coded Allergies: No Known Drug Allergies (Unverified , 04/07/18) Patient Home Medication List Home Medication List Reviewed: Yes Dapagliflozin Propanediol (Farxiga) 10 Mg Tablet, 10 MG PO DAILY, (Reported) Entered as Reported by: SHIRA YEBOAH on 07/22/23 1047 Last Action: Reviewed Glimepiride (Glimepiride) 4 Mg Tablet, 4 MG PO BID, (Reported) Entered as Reported by: SHIRA YEBOAH on 07/22/23 1047 Last Action: Reviewed Metformin HCl (Metformin HCl) 1,000 Mg Tablet, 1,000 MG PO BID, (Reported) Entered as Reported by: SHIRA YEBOAH on 07/22/231046 Last Action: Reviewed Pantoprazole Sodium (Pantoprazole Sodium) 40 Mg Tablet.dr, 40 MG PO DAILY, (Re ported) Entered as Reported by: SHIRA YEBOAH on 07/22/231046 Last Action: Reviewed Rosuvastatin Calcium (Rosuvastatin Calcium) 20 Mg Tablet, 20 MG PO HS, (Reported) Entered as Reported by: SHIRA YEBOAH on 07/22/231046 Last Action: Reviewed Semaglutide (Ozempic) 1 Mg/0.75 Ml (4 Mg/3 Ml) Pen.injctr, 1 MG SQ SATURDAY, (Reported) Entered as Reported by: SHIRA YEBOAH on 07/22/231046 Last Action: Reviewed Past Mkxyosg-Przctg-Mczddb Hx Patient Social History Smoking Status: Current Someday Smoker Type Used: Cigars (3 a day) Alcohol Use?: Yes Surgeries History of Surgeries: Yes Surgeries: Abdominal, Bowel Surgery, Cardiac, Orthopedic (R great toe surgery) Respiratory History of Respiratory Disorde: Yes Cardiovascular History of Cardiac Disorders: Yes Cardiac Disorders: Atrial Fibrillation Neurological History of Neurological Disord: Yes Neurological Disorders: Neuropathy (in b/l feet) Genitourinary History of Genitourinary Disor: No Musculoskeletal History of Musculoskeletal Dis: No Endocrine History of Endocrine Disorders: No HEENT Loss of Vision: Denies Hearing Impairment: Denies Cancer History of Cancer: Yes Cancer: Skin (SCC) Psychosocial History of Psychiatric Problem: No Family Medical History Significant Family History: Other Conditions/Hx (Father had Parkinsons) Review of Systems-General Constitutional: No fever; malaise; No weakness EENTM: No vision loss, No nose pain, No throat pain Respiratory: cough; No short of breath Cardiovascular: No chest pain, No palpitations Gastrointestinal: abdominal pain, nausea, vomiting Genitourinary: No dysuria, No hematuria Musculoskeletal: No back pain, No muscle pain Skin: hx of skin cancer (SCC on ears and scalp); No rash Psychiatric/Neurological: Denies Emotional Problems, Denies Headache, Denies Numbness Physical Exam-General Problems Physical Exam General Appearance: WD/WN, no apparent distress, obese Eyes: Bilateral Eye PERRL, Bilateral Eye EOMI HEENT: pharynx normal; No scleral icterus (R), No scleral icterus (L); other (NGT in place) Neck: non-tender, supple Respiratory: lungs clear, normal breath sounds, no respiratory distress, no accessory muscle use Cardiovascular: regular rate, rhythm, no edema, no murmur Gastrointestinal: non tender, soft, other (ileostomy bag with outpouching of stomach around it, is soft to touch -parastomal hernia has reduced) Back: no CVA tenderness, no vertebral tenderness Extremities: non-tender, no pedal edema Neurologic/Psychiatric: alert, oriented x 3 Skin: normal color, warm/dry, other (dry, cracked skin on b/l feet) Lymphatic: no adenopathy (neck, axilla or groin) Data Review Radiology Date of Exam:07/21/23 CT ABDOMEN/PELVIS W PROCEDURE: CT abdomen and pelvis with contrast. TECHNIQUE: Multiple contiguous axial images were obtained through the abdomen and pelvis after administration of intravenous contrast. Auto Exposure Controls were utilized during the CT exam to meet ALARA standards for radiation dose reduction. All CT scans use one or more of the following dose optimizing techniques: automated exposure control, MA and/or KvP adjustment based on patient size and exam type or iterative reconstruction. INDICATION: 62-year-old male, lower abdominal pain with nausea, vomiting, constipation x 4 days. CORRELATION STUDY: None. FINDINGS: LOWER THORAX: Clear. Low esophagus is distended with fluid. LIVER: Mild fatty infiltration without focal lesion. GALLBLADDER: Mildly distended with small gallstone. SPLEEN: Unremarkable. PANCREAS: Unremarkable. ADRENAL GLANDS: Unremarkable. KIDNEYS: Normal configuration. No calcification or obstruction. ABDOMINAL AORTA: Unremarkable, nonaneurysmal. GASTROINTESTINAL TRACT: Stomach distended with fluid. There is a moderate to marked small bowel distention with fluid. Dilated small bowel up to 4 cm. Post apparent colostomy with the right lower quadrant ileostomy. Herniated small bowel through the ostomy with transition consistent with a high degree obstruction. There is both markedly dilated and decompressed small bowel within the ostomy hernia. Some slight haziness is noted. No definitive pneumatosis. Small volume perihepatic fluid. URINARY BLADDER: Unremarkable. REPRODUCTIVE: Unremarkable. OSSEOUS STRUCTURES: No acute abnormality. IMPRESSION: 1. Right lower quadrant ileostomy with peristomal hernia. The herniated small bowel with marked, high degree small bowel obstruction at the ostomy site. Surgical consultation recommended. Dictated by: Dictated on workstation # [id number] Dict: 07/21/231931 Trans: 07/21/232220 [facility] [id number] Interpreted by: VIKAS SIM DO Electronically signed by: VIKAS SIM DO 07/21/232220 Assessment/Plan Assessment/Plan Assessment/Plan PSBO - secondary to next diagnosis Parastomal Hernia Ileostomy Hx Crohns Disease - denies any recent flairs Afib - controlled Diabetes Hypokalemia * Plan to clamp NG tube and try clear liquids * Pt would like to planning for hernia repair next week * Monitor electrolytes and replace as needed * Monitor ileostomy output I discussed his case with Hospitalist, ED provided and reviewed the CTmyself. There is a large parastomal hernia and one portion of bowel is very decompressed because of the bowel contents stuck in the hernia. Compared to what it looked like on CT and now examining the pt; it has definitely improved. I gave pt multiple options; do nothing, surgery today (which because he is improving I don't think he needs) or plan for surgery at a later date. We went over the surgery, my plan would be to do this Laparoscopically with the robot and pull intestine out of the hernia, suture the hernia closed and the do a Sugarbaker repair laying the mesh over the ileum to prevent recurrence. I of course told him that this repair was not 100%. We went over risks and complications; not limited to pain, bleeding, infection, scar, damage to bowel and need for further procedure. He would like to schedule for next week and therefore we will try some liquids today and DC NGT if that goes well tomorrow and finally increase diet. Supervisory-Addendum Brief Verification & Attestation Participated in pt care: history, MDM, physical Personally performed: exam, history, MDM, supervision of care Care discussed with: Medical Student Procedures: n/a Verification and Attestation of Medical Student E/M Service A medical student performed and documented this service. I then reviewed and verified all information documented by the medical student and made modifications to such information, when appropriate. I personally performed a physical exam, medical decision making and then discussed any differences between the notes and made revisions as necessary to create one note. Gayla Cannon , 07/22/23 , 22:51 NENA DOUGLAS Jul 22, 2023 07:29 GAYLA CANNON DO Jul 22, 2023 22:38
[2023-07-22] MEDS: NS IV 1000 ML 1,000 ML IV SCH ×2 (08:35→17:29)
[2023-07-22] MEDS ORDERED: METF-399 PO (10:47)
[2023-07-22] MEDS ORDERED: ROSU20TA73 PO (10:47)
[2023-07-22] MEDS ORDERED: PANT40TA52 PO (10:47)
[2023-07-22] MEDS ORDERED: SEMA1PEN3 SQ (10:47)
[2023-07-22] MEDS ORDERED: DAPA10TA PO (10:47)
[2023-07-22] MEDS ORDERED: GLIM4TAB5 PO (10:47)
--- NOTE | 2023-07-22 17:09 | History & Physical-Hospitalist ---
History of Present Illness HPI/Chief Complaint Haider Alarcon is a 62 year old male with PMH Crohn's, ileostomy, T2DM, HLD, obesity, who presented with vomiting. He reports no output from his ostomy. He also had diffuse abdominal pain. He denies fevers. He denies chest pain. He denies shortness of breath. Upon my exam, his nausea and vomiting have improved. He has an NG tube in place. He has started to have output from his ostomy again. His pain is improved. Source: patient Exam Limitations: no limitations Date Seen 07/22/23 Time Seen by a Provider: 10:25 Attending Physician Vincenzo Lopez MD PCP Admitting Physician: Kiesha Dumont MD Attending Physician: Kiesha Dumont MD Referring Physician Date of Admission Jul 21, 2023 at 21:08 Home Medications & Allergies Home Medications Reviewed patient Home Medication Reconciliation performed by pharmacy medication reconciliations master technician and/or nursing. Patients Allergies have been reviewed. Allergies Allergies Coded Allergies No Known Drug Allergies (Unverified04/07/18) Past Vrgyhjg-Jegevl-Czzryj Hx Patient Social History Tobacco Use?: Yes Tobacco type used: Cigars Smoking Status: Current Everyday Smoker Use of E-Cig and/or Vaping dev: No Substance use?: No Alcohol Use?: Yes Alcohol type: Beer Alcohol Frequency: Rarely Pt feels they are or have been: No Immunizations Up To Date Date of Influenza Vaccine: May 02, 2019 Tetanus Booster (TDap): Unknown Seasonal Allergies Seasonal Allergies: No Current Status Advance Directives: No Communicates: Verbally Primary Language: Ukrainian Preferred Spoken Language: Ukrainian Past Medical History Surgeries: Abdominal, Bowel Surgery, Cardiac, Orthopedic (R great toe surgery) Sleep Apnea Currently Using CPAP: Yes Currently Using BIPAP: No Atrial Fibrillation Neuropathy (in b/l feet) Sexually Transmitted Disease: No Crohns Disease Diabetes, Non-Insulin dep Loss of Vision: Denies Hearing Impairment: Denies Skin (SCC) Blood Disorders: No Family Medical History Cancer (mom had bladder cancer), Other Conditions/Hx (Father had Parkinsons) Review of Systems Constitutional: no symptoms reported Respiratory: no symptoms reported Gastrointestinal: abdominal pain, nausea, vomiting Physical Exam Physical Exam Vital Signs Vital Signs - First Documented 07/21/23 17:13 Temp 35.2 Pulse 110 Resp 18 B/P (MAP) 136/78 (97) Pulse Ox 95 O2 Delivery Room Air Capillary Refill : Less Than 3 Seconds Height, Weight, BMI Height: 6'3.00" Weight: 295lbs. 0.0oz. [id number]; 32.37 BMI Method:Stated General Appearance: No Apparent Distress, Obese HEENT: PERRL/EOMI, Other (NG tube in place) Neck: Normal Inspection, Supple Respiratory: Lungs Clear, No Respiratory Distress Cardiovascular: Regular Rate, Rhythm, No Murmur Gastrointestinal: Non Tender, Soft, Abnormal Bowel Sounds; No Distended, No Guarding; Other (RLQ ostomy) Extremity: Normal Inspection, Non Tender Neurologic/Psychiatric: Alert, No Motor/Sensory Deficits Skin: Normal Color, Warm/Dry Results Results/Procedures Labs Laboratory Tests 07/21/23 17:21 07/22/23 05:10 Patient resulted labs reviewed. Imaging: Reviewed Imaging Report Assessment/Plan Admission Diagnosis Small bowel obstruction Admission Status: Inpatient Order (span 2 midnights) Reason for Inpatient Admission: Hernia Assessment and Plan Small bowel obstruction Parastomal hernia Ileostomy Crohn's disease CT with high grade obstruction at hernia site Surgery consulted NG tube in place NPO IV fluids Pain regimen T2DM Sliding scale insulin HLD Obesity DVT prophylaxis: Lovenox Diagnosis/Problems Diagnosis/Problems (1) Small bowel obstruction Status: Acute (2) Parastomal hernia with obstruction and without gangrene Status: Acute (3) Crohn disease Status: Chronic (4) T2DM (type 2 diabetes mellitus) Status: Chronic (5) Obesity Status: Chronic LUCAS RAZO MD Jul 22, 2023 17:09
[2023-07-22] MEDS: ENOXAPARIN 40 MG/0.4 ML SYRINGE SQ SCH (17:29)
[2023-07-23] MEDS: NS IV 1000 ML 1,000 ML IV SCH ×2 (03:20→14:15)
[2023-07-23 03:42] VITALS: BP 124/71
[2023-07-23] MEDS: inSUlin ASPART 1 UNIT/0.01 ML (PER UNIT) SC SCH ×4 (05:41→21:08)
--- NOTE | 2023-07-23 07:34 | Progress Note - Surgery ---
NENA DOUGLAS 07/23/23 0734: Subjective Date Seen by a Provider: Jul 23, 2023 Subjective/Events-last exam He is feeling better, his abdominal pain and vomiting has resolved. His NG tube was clamped yesterday and he is tolerating clear liquids well. He is having output in his ileostomy bag and reports having it changed 2-3 times yesterday and it is back to a normal color for him. He has been thinking about the surgery and is thinking he wants to do it sooner than next week if possible. Pt is on Lovenox and last dose was given 1730 yesterday, is scheduled for 0 daily. Review of Systems General: No Chills, No Night Sweats, No Fatigue HEENT: No Head Aches, No Visual Changes Pulmonary: No Dyspnea; Cough Cardiovascular: No: Chest Pain, Palpitations, Lt Headedness Gastrointestinal: No: Nausea, Vomiting, Abdominal Pain Genitourinary: No Dysuria, No Frequency Musculoskeletal: No: neck pain, back pain Neurological: No: Weakness, Numbness, Change in speech, Confusion Objective Exam Vital Signs Date Time Temp Pulse Resp B/P (MAP) Pulse Ox O2 Delivery O2 Flow Rate FiO2 07/23/23 03:42 36.4 93 20 124/71 (88) 96 Room Air 07/22/23 23:16 36.4 84 20 117/61 (79) 96 Room Air 07/22/23 21:20 Room Air 07/22/23 19:29 36.2 90 20 133/63 (86) 98 Room Air 07/22/23 16:00 36.1 90 20 120/71 (87) 96 Room Air 07/22/23 11:06 36.8 98 16 114/70 (85) 94 Room Air 07/22/23 08:00 Room Air 07/22/23 07:57 36.7 89 16 117/73 (88) 94 Room Air I & O 07/23/23 07:00 Intake Total 600 ml Output Total 3600 ml Balance -3000 ml Capillary Refill : Less Than 3 Seconds General Appearance: No Apparent Distress, Obese HEENT: PERRL/EOMI; No Pale Conjunctivae (L), No Pale Conjunctivae (R); Other (NG tube in place- clamped) Neck: Non Tender, Supple Respiratory: Lungs Clear, No Accessory Muscle Use, No Respiratory Distress Cardiovascular: Regular Rate, Rhythm, No Murmur Gastrointestinal: non tender, soft, other (ileostomy bag, is soft to touch) Extremity: Non Tender, No Calf Tenderness, No Pedal Edema Neurologic/Psychiatric: Alert, No Motor/Sensory Deficits Skin: Normal Color, Warm/Dry Results Lab Laboratory Tests 07/22/23 12:34: Glucometer 216H 07/22/23 16:00: Glucometer 190H 07/22/23 20:27: Glucometer 166H 07/23/23 05:22: Glucometer 178H Assessment/Plan Assessment/Plan Assessment/Plan PSBO - secondary to next diagnosis Parastomal Hernia Ileostomy Hx of Crohns Disease - denies any recent flairs Afib - controlled after ablation T2DM Hypokalemia * NG tube clamped and is tolerating clear liquids * Planning for hernia repair- pt potentially would like to do it sooner than next week if able * Will stop Lovenox if doing surgery * Monitor electrolytes and replace as needed * Monitor ileostomy output DANN DESIR DO 07/23/23 1522: Subjective Time Seen by a Provider: 11:34 Subjective/Events-last exam Pt seen and examined, states he has thought about it and would like to do surgery "while I am here". He denies N/V and is still emptying his ostomy 2-3 times per day. Review of Systems General: No Chills, No Night Sweats Pulmonary: No Dyspnea; Cough Cardiovascular: No: Chest Pain, Palpitations Gastrointestinal: No: Nausea, Vomiting, Abdominal Pain Genitourinary: No Dysuria, No Frequency Objective Exam General Appearance: No Apparent Distress, Obese HEENT: PERRL/EOMI, Moist Mucous Membranes, Other (NG tube in place- clamped) Respiratory: Lungs Clear, Normal Breath Sounds, No Accessory Muscle Use, No Respiratory Distress Cardiovascular: Regular Rate, Rhythm, No Murmur Gastrointestinal: non tender, soft, other (ileostomy bag, parastomal hernia may be slightly bigger today but is soft to touch) Extremity: No Calf Tenderness, No Pedal Edema Neurologic/Psychiatric: Alert, Oriented x3 Skin: Normal Color, Warm/Dry Assessment/Plan Assessment/Plan Assessment/Plan PSBO - secondary to next diagnosis Parastomal Hernia Ileostomy Hx of Crohns Disease - denies any recent flairs Afib - controlled after ablation T2DM Hypokalemia * NG tube clamped and is tolerating clear liquids * Planning for hernia repair- pt potentially would like to do it sooner than next week if able * Will stop Lovenox if doing surgery * Monitor electrolytes and replace as needed * Monitor ileostomy output Will unclamp NGT, automobile assembly supervisor to suction and if less than 300ml, can be d/c'd. I again discussed with pt the surgery and risks. Will plan for . Supervisory-Addendum Brief Verification & Attestation Participated in pt care: history, MDM, physical Personally performed: exam, history, MDM, supervision of care Care discussed with: Medical Student Procedures: n/a Verification and Attestation of Medical Student E/M Service A medical student performed and documented this service. I then reviewed and verified all information documented by the medical student and made modifications to such information, when appropriate. I personally performed a physical exam, medical decision making and then discussed any differences b etween the notes and made revisions as necessary to create one note. Dann Desir , 07/23/23 , 15:22 NENA DOUGLAS Jul 23, 2023 07:34 DANN DESIR DO Jul 23, 2023 15:22
[2023-07-23 07:35] VITALS: BP 128/63
[2023-07-23 08:25] LABS: BASOPHILS % (AUTO) 0 % (0-10); EOSINOPHILS # (AUTO) 0.5 10^3/uL (0.0-0.3); EOSINOPHILS % (AUTO) 10 % (0-10); HEMATOCRIT 43 % (40-54); HEMOGLOBIN 15.2 g/dL (13.3-17.7); LYMPHOCYTES # (AUTO) 1.2 10^3/uL (1.0-4.0); LYMPHOCYTES % (AUTO) 23 % (12-44); MEAN CORPUSCULAR HEMOGLOBIN 32 pg (25-34); MEAN CORPUSCULAR HGB CONC 36 g/dL (32-36); MEAN CORPUSCULAR VOLUME 90 fL (80-99); MONOCYTES # (AUTO) 0.6 10^3/uL (0.0-1.0); MONOCYTES % (AUTO) 12 % (0-12); NEUTROPHILS # (AUTO) 2.9 10^3/uL (1.8-7.8); NEUTROPHILS % (AUTO) 56 % (42-75); PLATELET COUNT 132 10^3/uL (130-400); WHITE BLOOD COUNT 5.1 10^3/uL (4.3-11.0)
[2023-07-23 08:41] LABS: POTASSIUM 3.3 MMOL/L (3.6-5.0)
[2023-07-23 08:42] LABS: CALCIUM 8.6 MG/DL (8.5-10.1)
[2023-07-23 08:46] LABS: CREATININE SERUM 0.91 MG/DL (0.60-1.30)
[2023-07-23 11:20] VITALS: BP 123/73
[2023-07-23 15:40] VITALS: BP 123/64
[2023-07-23] MEDS: ENOXAPARIN 40 MG/0.4 ML SYRINGE SQ SCH (17:24)
--- NOTE | 2023-07-23 18:54 | Progress Note - Hospitalist ---
Subjective HPI/CC On Admission Date Seen by Provider: Jul 23, 2023 Time Seen by Provider: 11:05 Haider Alarcon is a 62 year old male with PMH Crohn's, ileostomy, T2DM, HLD, obesity, who presented with vomiting. He reports no output from his ostomy. He also had diffuse abdominal pain. He denies fevers. He denies chest pain. He denies shortness of breath. Upon my exam, his nausea and vomiting have improved. He has an NG tube in place. He has started to have output from his ostomy again. His pain is improved. Subjective/Events-last exam He has had some abdominal pain. He denies nausea and vomiting. He has been able to tolerate clears. He is having output from his ostomy. Objective Exam Vital Signs Vital Signs Date Time Temp Pulse Resp B/P (MAP) Pulse Ox O2 Delivery O2 Flow Rate FiO2 07/23/23 15:40 36.7 73 18 123/64 (83) 97 Room Air Capillary Refill : Less Than 3 Seconds General Appearance: No Apparent Distress, Obese Respiratory: Lungs Clear, No Respiratory Distress Cardiovascular: Regular Rate, Rhythm, No Murmur Gastrointestinal: Normal Bowel Sounds, Soft; No Distended, No Guarding; Tenderness Extremity: Normal Inspection, No Pedal Edema Neurologic/Psychiatric: Alert, Normal Mood/Affect Results/Procedures Lab Laboratory Tests 07/23/23 08:16 Patient resulted labs reviewed. Imaging: Reviewed Imaging Report Assessment/Plan Assessment and Plan Assess & Plan/Chief Complaint Small bowel obstruction Parastomal hernia Ileostomy Crohn's disease CT with high grade obstruction at hernia site Surgery following NG tube clamped Clears IV fluids Pain regimen Planning for surgery T2DM Sliding scale insulin HLD Obesity DVT prophylaxis: SCDs, holding Lovenox for surgery Diagnosis/Problems Diagnosis/Problems (1) Small bowel obstruction Status: Acute (2) Parastomal hernia with obstruction and without gangrene Status: Acute (3) Crohn disease Status: Chronic (4) T2DM (type 2 diabetes mellitus) Status: Chronic (5) Obesity Status: Chronic LUCAS RAZO MD Jul 23, 2023 18:54
[2023-07-23 19:28] VITALS: BP 123/73
[2023-07-23 23:42] VITALS: BP 111/63
[2023-07-24] MEDS: NS IV 1000 ML 1,000 ML IV SCH ×3 (00:21→19:52)
[2023-07-24 03:08] VITALS: BP 110/60
[2023-07-24] MEDS: inSUlin ASPART 1 UNIT/0.01 ML (PER UNIT) SC SCH ×4 (05:06→21:26)
[2023-07-24 07:30] VITALS: BP 123/74
[2023-07-24] MEDS ORDERED: NS IV 500 ML 500 ML IV PRN (07:45)
--- NOTE | 2023-07-24 07:46 | Progress Note - Surgery ---
NENA DOUGLAS 07/24/23 0746: Subjective Date Seen by a Provider: Jul 24, 2023 Time Seen by a Provider: 07:41 Subjective/Events-last exam Pt reports he has had no nausea, vomiting, abdominal pain today and is doing well. He had the NG tube taken out last night and has been tolerating clear liquids well and has had no discomfort. He continues to have output in his ileostomy bag. Review of Systems General: No Chills, No Fatigue HEENT: No Head Aches, No Visual Changes Pulmonary: No Dyspnea, No Cough Cardiovascular: No: Chest Pain Gastrointestinal: No: Nausea, Vomiting, Abdominal Pain Genitourinary: No Dysuria, No Frequency Musculoskeletal: No: neck pain, back pain Neurological: No: Weakness, Numbness, Change in speech, Confusion Objective Exam Vital Signs Date Time Temp Pulse Resp B/P (MAP) Pulse Ox O2 Delivery O2 Flow Rate FiO2 07/24/23 07:30 36.6 54 16 123/74 (90) 96 Room Air 07/24/23 03:08 36.4 60 18 110/60 (77) 97 Room Air 07/23/23 23:42 36.3 67 18 111/63 (79) 96 Room Air 07/23/23 20:00 Room Air 07/23/23 19:28 36.7 70 18 123/73 (90) 97 Room Air 07/23/23 15:40 36.7 73 18 123/64 (83) 97 Room Air 07/23/23 11:20 37.0 81 16 123/73 (90) 96 Room Air 07/23/23 09:56 Room Air I & O 07/24/23 07:00 Intake Total 2200 ml Output Total 3555 ml Balance -1355 ml Capillary Refill : Less Than 3 Seconds General Appearance: No Apparent Distress, Obese HEENT: PERRL/EOMI; No Scleral Icterus (L), No Scleral Icterus (R) Neck: Non Tender, Supple Respiratory: Lungs Clear, No Accessory Muscle Use, No Respiratory Distress Cardiovascular: Regular Rate, Rhythm, No Murmur Gastrointestinal: non tender, soft, other (ileostomy bag, parastomal hernia soft to touch similar to yesterday) Extremity: No Calf Tenderness, No Pedal Edema, Other (dry skin on toes) Neurologic/Psychiatric: Alert, Oriented x3 Skin: Normal Color, Warm/Dry Results Lab Laboratory Tests 07/23/23 08:16: White Blood Count 5.1, Red Blood Count 4.73, Hemoglobin 15.2, Hematocrit 43, Mean Corpuscular Volume 90, Mean Corpuscular Hemoglobin 32, Mean Corpuscular Hemoglobin Concent 36, Red Cell Distribution Width 12.8, Platelet Count 132, Mean Platelet Volume 9.0, Immature Granulocyte % (Auto) 0, Neutrophils (%) (Auto) 56, Lymphocytes (%) (Auto) 23, Monocytes (%) (Auto) 12, Eosinophils (%) (Auto) 10, Basophils (%) (Auto) 0, Neutrophils # (Auto) 2.9, Lymphocytes # (Auto) 1.2, Monocytes # (Auto) 0.6, Eosinophils # (Auto) 0.5H, Basophils # (Auto) 0.0, Immature Granulocyte # (Auto) 0.0, Sodium Level 136, Potassium Level 3.3L, Chloride Level 107, Carbon Dioxide Level 21, Anion Gap 8, Blood Urea Nitrogen 27H, Creatinine 0.91, Estimat Glomerular Filtration Rate 96, BUN/Creatinine Ratio 30, Glucose Level 136H, Calcium Level 8.6 07/23/23 10:31: Glucometer 123H 07/23/23 15:44: Glucometer 111H 07/23/23 20:41: Glucometer 97 07/24/23 05:00: Glucometer 86 Assessment/Plan Assessment/Plan Assessment/Plan PSBO - secondary to next diagnosis Parastomal Hernia Ileostomy Hx of Crohns Disease - denies any recent flairs Afib - controlled after ablation T2DM Hypokalemia * NG tube was removed- tolerating clears * Planning for hernia repair tomorrow * Will stop Lovenox if doing surgery * Monitor electrolytes and replace as needed * Monitor ileostomy output . DANN DESIR DO 07/24/23 1339: Subjective Time Seen by a Provider: 10:54 Subjective/Events-last exam Pt seen and examined, denies abdominal pain and denies N/V. Ileostomy still with good output. He is ready for surgery. Review of Systems General: No Chills Pulmonary: No Dyspnea, No Cough Cardiovascular: No: Chest Pain, Palpitations Gastrointestinal: No: Nausea, Vomiting, Abdominal Pain Genitourinary: No Dysuria, No Frequency Objective Exam General Appearance: No Apparent Distress, Obese HEENT: PERRL/EOMI Respiratory: Lungs Clear, Normal Breath Sounds, No Accessory Muscle Use, No Respiratory Distress Cardiovascular: Regular Rate, Rhythm, No Murmur Gastrointestinal: non tender, soft, other (ileostomy bag, parastomal hernia soft to touch similar to yesterday) Extremity: No Calf Tenderness, No Pedal Edema, Other (dry skin on toes) Neurologic/Psychiatric: Alert, Oriented x3 Assessment/Plan Assessment/Plan Assessment/Plan PSBO - resolved Parastomal Hernia Ileostomy Hx of Crohns Disease - denies any recent flairs Afib - controlled after ablation T2DM Hypokalemia * NG tube was removed- tolerating clears * Planning for hernia repair tomorrow * Will stop Lovenox if doing surgery * Monitor electrolytes and replace as needed * Monitor ileostomy output Plan for Laparoscopic Parastomal herniarraphy with Sugarbaker Mesh placement in am on 07/25. Pt had no questions regarding surgery. Supervisory-Addendum Brief Verification & Attestation Participated in pt care: history, MDM, physical Personally performed: exam, history, MDM, supervision of care Care discussed with: Medical Student Procedures: n/a Verification and Attestation of Medical Student E/M Service A medical student performed and documented this service. I then reviewed and verified all information documented by the medical student and made modifications to such information, when appropriate. I personally performed a physical exam, medical decision making and then discussed any differences between the notes and made revisions as necessary to create one note. Dann Desir , 07/24/23 , 13:39 NENA DOUGLAS Jul 24, 2023 07:46 DANN DESIR DO Jul 24, 2023 13:39
[2023-07-24 08:01] LABS: BASOPHILS % (AUTO) 1 % (0-10); EOSINOPHILS % (AUTO) 1 % (0-10); HEMATOCRIT 40 % (40-54); HEMOGLOBIN 14.6 g/dL (13.3-17.7); LYMPHOCYTES # (AUTO) 1.1 10^3/uL (1.0-4.0); LYMPHOCYTES % (AUTO) 25 % (12-44); MEAN CORPUSCULAR HEMOGLOBIN 32 pg (25-34); MEAN CORPUSCULAR HGB CONC 36 g/dL (32-36); MEAN CORPUSCULAR VOLUME 88 fL (80-99); MONOCYTES # (AUTO) 0.4 10^3/uL (0.0-1.0); MONOCYTES % (AUTO) 10 % (0-12); NEUTROPHILS # (AUTO) 2.8 10^3/uL (1.8-7.8); NEUTROPHILS % (AUTO) 64 % (42-75); PLATELET COUNT 131 10^3/uL (130-400); WHITE BLOOD COUNT 4.4 10^3/uL (4.3-11.0)
[2023-07-24 08:10] LABS: POTASSIUM 3.1 MMOL/L (3.6-5.0)
[2023-07-24 08:11] LABS: CALCIUM 8.1 MG/DL (8.5-10.1)
[2023-07-24 08:15] LABS: CREATININE SERUM 0.75 MG/DL (0.60-1.30)
[2023-07-24 08:18] LABS: MAGNESIUM 2.1 MG/DL (1.6-2.4)
[2023-07-24] MEDS ORDERED: POTASSIUM CHLORIDE 20 MEQ TABLET PO NR ×2 (09:30→13:30)
[2023-07-24 11:32] VITALS: BP 120/76
[2023-07-24 15:40] VITALS: BP 127/80
[2023-07-24] MEDS: ENOXAPARIN 40 MG/0.4 ML SYRINGE SQ SCH (17:17)
--- NOTE | 2023-07-24 19:11 | Progress Note - Hospitalist ---
Subjective HPI/CC On Admission Date Seen by Provider: Jul 24, 2023 Time Seen by Provider: 10:25 Haider Alarcon is a 62 year old male with PMH Crohn's, ileostomy, T2DM, HLD, obesity, who presented with vomiting. He reports no output from his ostomy. He also had diffuse abdominal pain. He denies fevers. He denies chest pain. He denies shortness of breath. Upon my exam, his nausea and vomiting have improved. He has an NG tube in place. He has started to have output from his ostomy again. His pain is improved. Subjective/Events-last exam He denies abdominal pain. He denies nausea and vomiting. He is having output from his ostomy. Objective Exam Vital Signs Vital Signs Date Time Temp Pulse Resp B/P (MAP) Pulse Ox O2 Delivery O2 Flow Rate FiO2 07/24/23 15:40 37.6 71 19 127/80 (96) 96 Room Air Capillary Refill : Less Than 3 Seconds General Appearance: No Apparent Distress, Obese Respiratory: Lungs Clear, No Respiratory Distress Cardiovascular: Regular Rate, Rhythm, No Murmur Gastrointestinal: Normal Bowel Sounds, Soft, Other (ostomy RLQ) Extremity: Normal Inspection, No Pedal Edema Neurologic/Psychiatric: Alert, Normal Mood/Affect Results/Procedures Lab Laboratory Tests 07/24/23 07:52 Patient resulted labs reviewed. Imaging: Reviewed Imaging Report Assessment/Plan Assessment and Plan Assess & Plan/Chief Complaint Small bowel obstruction Parastomal hernia Ileostomy Crohn's disease CT with high grade obstruction at hernia site Surgery following NG tube removed IV fluids Pain regimen NPO after midnight Surgery planned for tomorrow T2DM Sliding scale insulin HLD Obesity DVT prophylaxis: SCDs, holding Lovenox for surgery Diagnosis/Problems Diagnosis/Problems (1) Small bowel obstruction Status: Acute (2) Parastomal hernia with obstruction and without gangrene Status: Acute (3) Crohn disease Status: Chronic (4) T2DM (type 2 diabetes mellitus) Status: Chronic (5) Obesity Status: Chronic LUCAS RAZO MD Jul 24, 2023 19:11
[2023-07-24 20:13] VITALS: BP 127/69
[2023-07-24 23:22] VITALS: BP 124/72
[2023-07-25] VITALS (12 sets, daily range): BP systolic 128–151; BP diastolic 63–87
[2023-07-25] MEDS: inSUlin ASPART 1 UNIT/0.01 ML (PER UNIT) SC SCH ×4 (05:48→20:15)
[2023-07-25 05:54] LABS: POTASSIUM 3.2 MMOL/L (3.6-5.0)
[2023-07-25 05:56] LABS: CALCIUM 8.3 MG/DL (8.5-10.1)
[2023-07-25 06:00] LABS: CREATININE SERUM 0.74 MG/DL (0.60-1.30)
[2023-07-25 06:03] LABS: MAGNESIUM 1.9 MG/DL (1.6-2.4)
[2023-07-25] MEDS: POTASSIUM CL 10MEQ/50ML IVPB 50 ML IV SCH ×9 (06:04→19:30)
[2023-07-25] MEDS: POTASSIUM CHLORIDE 20 MEQ TABLET PO SCH (06:05)
[2023-07-25] MEDS: POTASSIUM BICARB 20 MEQ effervescent TABLET PO SCH (06:05)
[2023-07-25] MEDS: MAGNESIUM 1 GM/100 ML IVPB 100 ML IV SCH ×3 (06:21→07:44)
[2023-07-25] MEDS: NS IV 1000 ML 1,000 ML IV SCH ×2 (06:36→16:44)
[2023-07-25] MEDS ORDERED: MIDAZOLAM INJ 2 MG/2 ML VIAL ONE (07:18)
[2023-07-25] MEDS ORDERED: proPOfol INJECTION 200 MG/20 ML VIAL IV ONE (07:18)
[2023-07-25] MEDS ORDERED: fentaNYL INJECTION 100 MCG/2 ML VIAL ONE ×3 (07:18→11:51)
[2023-07-25] MEDS ORDERED: ROCURONIUM 50 MG/5 ML VIAL IV ONE ×2 (07:18→10:30)
[2023-07-25] MEDS ORDERED: LIDOCAINE PF 2% 5 ML VIAL ONE (07:18)
[2023-07-25] MEDS ORDERED: LIDOCAINE 2% w/EPI 1:100,000 20 ML VIAL ONE (07:34)
--- NOTE | 2023-07-25 07:37 | Progress Note - Surgery ---
NENA DOUGLAS 07/25/23 0737: Subjective Date Seen by a Provider: Jul 25, 2023 Time Seen by a Provider: 07:32 Subjective/Events-last exam Austin is 62 yo M, he is lying in bed comfortably this morning and does not have any acute concerns. He is planned for a parastomal hernia repair surgery this morning and feels "as ready as he's going to be". He denies any nausea, vomiting, or abdominal pain. He is still having output in his ileostomy bag and parastomal hernia is soft to touch. He has been NPO since midnight. Review of Systems General: No Chills, No Night Sweats, No Fatigue HEENT: No Head Aches, No Visual Changes Pulmonary: No Dyspnea, No Cough Cardiovascular: No: Chest Pain, Palpitations, Orthopnea Gastrointestinal: No: Nausea, Vomiting, Abdominal Pain Genitourinary: No Dysuria, No Frequency Musculoskeletal: No: neck pain, back pain Neurological: No: Weakness, Numbness, Change in speech, Confusion Objective Exam Vital Signs Date Time Temp Pulse Resp B/P (MAP) Pulse Ox O2 Delivery O2 Flow Rate FiO2 07/25/23 03:22 36.8 69 18 128/67 (87) 97 Room Air 07/24/23 23:22 36.8 66 18 124/72 (89) 96 Room Air 07/24/23 20:13 37.4 71 19 127/69 (88) 96 Room Air 07/24/23 20:00 Room Air 07/24/23 15:40 37.6 71 19 127/80 (96) 96 Room Air 07/24/23 11:32 36.5 60 17 120/76 (91) 96 Room Air 07/24/23 08:00 Room Air I & O 07/25/23 06:59 Intake Total 3580 ml Output Total 3575 ml Balance 5 ml Capillary Refill : Less Than 3 Seconds General Appearance: No Apparent Distress, Obese HEENT: PERRL/EOMI; No Scleral Icterus (L), No Scleral Icterus (R) Neck: Non Tender, Supple Respiratory: Lungs Clear, No Accessory Muscle Use, No Respiratory Distress Cardiovascular: Regular Rate, Rhythm, No Murmur Gastrointestinal: non tender, soft, other (ileostomy bag, parastomal hernia soft to touch similar to yesterday) Extremity: No Calf Tenderness, No Pedal Edema Neurologic/Psychiatric: Alert, Oriented x3 Skin: Normal Color, Warm/Dry Results Lab Laboratory Tests 07/24/23 07:52: White Blood Count 4.4, Red Blood Count 4.55, Hemoglobin 14.6, Hematocrit 40, Mean Corpuscular Volume 88, Mean Corpuscular Hemoglobin 32, Mean Corpuscular Hemoglobin Concent 36, Red Cell Distribution Width 12.4, Platelet Count 131, Mean Platelet Volume 9.0, Immature Granulocyte % (Auto) 0, Neutrophils (%) (Auto) 64, Lymphocytes (%) (Auto) 25, Monocytes (%) (Auto) 10, Eosinophils (%) (Auto) 1, Basophils (%) (Auto) 1, Neutrophils # (Auto) 2.8, Lymphocytes # (Auto) 1.1, Monocytes # (Auto) 0.4, Eosinophils # (Auto) 0.0, Basophils # (Auto) 0.0, Immature Granulocyte # (Auto) 0.0, Sodium Level 135, Potassium Level 3.1L, Chloride Level 106, Carbon Dioxide Level 18L, Anion Gap 11, Blood Urea Nitrogen 17, Creatinine 0.75, Estimat Glomerular Filtration Rate 103, BUN/Creatinine Ratio 23, Glucose Level 106H, Calcium Level 8.1L, Magnesium Level 2.1 07/24/23 11:22: Glucometer 96 07/24/23 15:17: Glucometer 82 07/24/23 18:35: SARS-CoV-2 RNA (RT-PCR) Not Detected 07/24/23 20:28: Glucometer 81 07/25/23 05:34: Sodium Level 135, Potassium Level 3.2L, Chloride Level 107, Carbon Dioxide Level 17L, Anion Gap 11, Blood Urea Nitrogen 12, Creatinine 0.74, Estimat Glomerular Filtration Rate 104, BUN/Creatinine Ratio 16, Glucose Level 109H, Calcium Level 8.3L, Magnesium Level 1.9 07/25/23 05:44: Glucometer 106 Assessment/Plan Assessment/Plan Assessment/Plan PSBO - resolved Parastomal Hernia Ileostomy Hx of Crohns Disease - denies any recent flairs Afib - controlled after ablation T2DM Hypokalemia * NG tube was removed on 07/23 * Parastomal hernia repair today * Monitor electrolytes and replace as needed * Monitor ileostomy output GAYLA DESIR DO 07/25/23 1205: Subjective Time Seen by a Provider: 08:38 Subjective/Events-last exam Pt seen and examined, just prior to OR. He asked a little about the robot, but stated "I'm [place] intrigued about the robot being used". Review of Systems Cardiovascular: No: Chest Pain, Palpitations Gastrointestinal: No: Nausea, Vomiting, Abdominal Pain Objective Exam General Appearance: No Apparent Distress HEENT: PERRL/EOMI Respiratory: Lungs Clear, Normal Breath Sounds, No Accessory Muscle Use, No Respiratory Distress Cardiovascular: Regular Rate, Rhythm, No Murmur Gastrointestinal: non tender, soft, other (ileostomy bag, parastomal hernia soft to touch but slightly bigger than yesterday?) Assessment/Plan Assessment/Plan Assessment/Plan Parastomal Hernia - to OR today to repair Ileostomy Hx of Crohns Disease - denies any recent flairs Afib - controlled after ablation T2DM Hypokalemia * NG tube was removed on 07/23 * Parastomal hernia repair today * Monitor electrolytes and replace as needed * Monitor ileostomy output Supervisory-Addendum Brief Verification & Attestation Participated in pt care: history, MDM, physical Personally performed: exam, history, MDM, supervision of care Care discussed with: Medical Student Procedures: n/a Verification and Attestation of Medical Student E/M Service A medical student performed and documented this service. I then reviewed and verified all information documented by the medical student and made modifications to such information, when appropriate. I personally performed a physical exam, medical decision making and then discussed any differences between the notes and made revisions as necessary to create one note. Gayla Desir , 07/25/23 , 12:04 NENA DOUGLAS Jul 25, 2023 07:37 GAYLA DESIR DO Jul 25, 2023 12:05
[2023-07-25] MEDS ORDERED: LIDOCAINE 2% w/EPI 1:100,000 20 ML VIAL INJ ONE (07:45)
[2023-07-25] MEDS: LACTATED RINGERS 1,000 ML 1,000 ML IV PRN ×2 (08:42→10:55)
[2023-07-25] MEDS ORDERED: ceFAZolin INJECTION 1,000 MG ONE (09:12)
[2023-07-25] MEDS ORDERED: ceFAZolin INJECTION 2,000 MG ONE (09:12)
[2023-07-25] MEDS ORDERED: ceFAZolin INJECTION 3,000 MG IV ONE (09:20)
[2023-07-25] MEDS ORDERED: NEOSTIGMINE 1 MG/1ML 10 ML VIAL ONE (10:30)
[2023-07-25] MEDS ORDERED: ESMOLOL INJ 100 MG/10 ML VIAL ONE (10:30)
[2023-07-25] MEDS ORDERED: ONDANSETRON INJECTION 4 MG/2 ML (SDV) ONE ×2 (10:30→11:50)
[2023-07-25] MEDS ORDERED: GLYCOPYRROLATE INJ 0.2 MG/ML 2 ML VIAL ONE (10:30)
[2023-07-25] MEDS ORDERED: SEVOFLURANE (ULTANE) 15 ML INHAL SOLN ONE ×2 (10:31→11:38)
--- NOTE | 2023-07-25 11:44 | Anesthesia-General Post-Op ---
General Patient Condition Mental Status/LOC: Same as Preop Cardiovascular: Satisfactory Nausea/Vomiting: Absent Respiratory: Satisfactory Pain: Controlled Complications: Absent Post Op Complications Complications None Follow Up Care/Instructions Patient Instructions None needed. Anesthesia/Patient Condition Patient Condition Patient is doing well, no complaints, stable vital signs, no apparent adverse anesthesia problems. No complications reported per nursing. TAMAR PAULINO CRNA Jul 25, 2023 11:44
[2023-07-25] MEDS ORDERED: ONDANSETRON INJECTION 4 MG/2 ML (SDV) IVP PRN (11:45)
[2023-07-25] MEDS ORDERED: fentaNYL INJECTION 100 MCG/2 ML VIAL IVP ONE (11:45)
--- NOTE | 2023-07-25 12:14 | Progress Note-Post Operative ---
Post-Operative Progess Note Surgeon (s)/[employer] Measurer (s) Surgeon GAYLA CANNON DO [employer] Measurer: MAXIMINO Bess Pre-Operative Diagnosis Parastomal hernia - incarcerated, PSBO Post-Operative Diagnosis same Procedure & Operative Findings Date of Procedure 07/25/23 Procedure Performed/Findings Parastomal hernia repair with mesh - Sugarbaker technique; Robotically Anesthesia Type GET Estimated Blood Loss Estimated blood loss (mL): less than 40ml Specimens/Packing Specimens Removed none Packin GAYLA CANNON DO Jul 25, 2023 12:13
[2023-07-25] MEDS: ENOXAPARIN 40 MG/0.4 ML SYRINGE SQ SCH (16:43)
--- NOTE | 2023-07-25 20:54 | OPERATIVE REPORT ---
DATE OF SERVICE: 07/25/2023 PREOPERATIVE DIAGNOSIS: Parastomal hernia, incarcerated and partial small-bowel obstruction. POSTOPERATIVE DIAGNOSIS: Parastomal hernia, incarcerated and partial small-bowel obstruction. PROCEDURE: A parastomal hernia repair with mesh, Sugarbaker technique robotically assisted. SURGEON: Dann Desir DO CAPACITOR INSPECTOR: Cierra Pacheco, MS4 ANESTHESIA: General endotracheal tube. BLOOD LOSS: Less than 40 mL. SPECIMENS: None. FLUIDS: Per anesthesia. POSTOPERATIVE CONDITION: Stable. INDICATIONS FOR PROCEDURE: The patient is a 62-year-old male who came into the hospital with partial small-bowel obstruction secondary to a parastomal hernia seemed to resolve, but still had this incarcerated parastomal hernia. Once he was improved, he had decided he wanted to get this repaired while in the hospital. FINDINGS: The patient had an incarcerated parastomal hernia, able to get the intestine out, closed the defect and then placed mesh. DESCRIPTION OF PROCEDURE: After informed consent was obtained, the patient was brought to the operating room and placed table in supine position. He was sterilely prepped and draped in normal fashion, started with local lidocaine in the left upper quadrant, infiltrated with local lidocaine and then made an incision with 11 blade, carried down through skin into subcutaneous tissue, then deepened down to subcutaneous tissue with Bovie electrocautery. This was right under the ribs down to the fascia. Fascia was then incised with electrocautery, bluntly spread the muscle apart. We went through the posterior fascia and then able to bluntly get into the abdomen, placed a 11 mm trocar port and then blew up the balloon to hold this in place and then placed the camera, could see the adhesions in the midline and then the parastomal hernia, took pictures of this. He did have some mildly dilated small bowel in the left side, placed 2 more robotic ports, 8 mm ports, one about midline and one left lower quadrant. Using local lidocaine, 11 blade for an 8 mm stab incision and then the robotic port under direct visualization. Once this was in place, we then docked the robot, placed the camera in the middle port, placed the scissors in the right upper quadrant port and then placed the fenestrated bipolar in the left lower quadrant. I then started taking down the adhesions in the midline with the scissors and cautery. Once these were out of the way, then, I could see the parastomal hernia better. There was a lot of bowel stuck up in the hernia. There was some hernia sac. I carefully took this down with Bovie electrocautery with the scissors, able to free up and get all of the intestine except for the terminal ileum out of the area. There were also some adhesions in the midline toward the suprapubic area. These were carefully taken down. At this point, I then elected to close the parastomal hernia with I used 0 Stratafix running from the superior portion of the inferior portion, pushing the terminal ileum out and then tied this tight, but not too tight, elected to place a mesh here. I used a Sugarbaker technique, I placed a 10 x 14 Bath mesh, it was the Bath version of the Phasix mesh and so one side was nonsticky, so that it could be placed near the bowel and what I did was travis on this side to make sure we are going to leave the site, so we could see it and then travis a line in the midline. I then placed this mesh into the abdomen. I then used a 3-0 Vicryl and through the distal portion of the mesh, went through the mesh and then to the right side of the ileum and then back to the mesh and then tied this up. This was to lay the mesh to push the ileum away from the hernia. I then did another 3-0 Vicryl in the right side and closing it right next to the terminal ileum, thereby holding this in place and delineating my edges. I then undocked the robot and used the SecureStrap to tack the rest of the mesh in place, it tracked up very nicely. A picture was taken. At this point, then removed all ports and in the left upper quadrant and then closed this fascial defect with 0 Vicryl [id number] suture, then closed the incisions, closed the left upper quadrant incision with 4-0 undyed Monocryl #3 interrupted subcuticular stitches and closed the almost midline incision and the left lower quadrant incision with a single interrupted 4-0 undyed Monocryl subcuticular stitches. Area was cleaned and dried. Dermabond placed. The patient was then transferred to recovery room in stable condition. Sponge and needle counts were correct at the end of the case. Job ID: [id number] DocumentID: [id number] Dictated Date: 07/25/2023 12:16:24 Field Research Associate Date: 07/25/2023 20:52:00 Dictated By: DANN DESIR DO
[2023-07-26] MEDS: NS IV 1000 ML 1,000 ML IV SCH ×2 (00:01→09:38)
[2023-07-26 03:22] VITALS: BP 142/76
[2023-07-26] MEDS: inSUlin ASPART 1 UNIT/0.01 ML (PER UNIT) SC SCH ×2 (06:25→12:06)
--- NOTE | 2023-07-26 07:54 | Progress Note - Surgery ---
NENA DOUGLAS 07/26/23 0754: Subjective Date Seen by a Provider: Jul 26, 2023 Time Seen by a Provider: 07:49 Subjective/Events-last exam Austin is 62 yo M who is laying in his bed comfortably after a parastomal hernia repair yesterday. He reports he had minimal pain around incision sites yesterday but that pain has resolved. He was given pain meds last night around 11 pm. He reports he has some pain when coughing as well but has no shortness of breath. He denies any dysuria. He is having output in his ileostomy bag and is having good urine output. He had about 200 mL of output from his ileostomy bag after surgery yesterday, has had about 50 mL so far today. He is still NPO. The outpouching around his ileostomy is improved. His incision sites are clean, dry and intact. Review of Systems General: No Chills, No Fatigue HEENT: No Head Aches, No Visual Changes Pulmonary: No Dyspnea; Cough (minimally) Cardiovascular: No: Chest Pain, Palpitations Gastrointestinal: No: Nausea, Vomiting, Abdominal Pain Genitourinary: No Dysuria, No Frequency Musculoskeletal: No: neck pain, back pain Neurological: No: Weakness, Numbness, Change in speech, Confusion Objective Exam Vital Signs Date Time Temp Pulse Resp B/P (MAP) Pulse Ox O2 Delivery O2 Flow Rate FiO2 07/26/23 03:22 37.1 92 18 142/76 (98) 95 Room Air 07/25/23 23:56 91 20 133/63 (86) 92 Room Air 07/25/23 20:57 Room Air 07/25/23 20:04 37.1 90 18 136/69 (91) 99 Room Air 07/25/23 16:11 36.6 81 18 146/65 (92) 98 07/25/23 12:47 36.3 107 18 142/77 (98) 92 Nasal Cannula 2.00 07/25/23 12:38 Room Air 07/25/23 12:30 36.6 16 140/87 (104) 96 Room Air 07/25/23 12:20 20 151/80 (103) 95 Room Air 07/25/23 12:15 Room Air 07/25/23 12:10 18 140/80 (100) 97 OxyMask 2.00 07/25/23 12:00 16 147/71 (96) 99 OxyMask 4.00 07/25/23 12:00 OxyMask 2.00 07/25/23 11:50 18 139/85 (103) 99 OxyMask 4.00 07/25/23 11:45 OxyMask 4.00 07/25/23 11:40 18 146/78 (100) 98 OxyMask 4.00 07/25/23 11:32 36.0 20 134/71 (92) 97 OxyMask 6.00 07/25/23 11:32 OxyMask 6.00 07/25/23 08:00 Room Air I & O 07/26/23 07:00 Intake Total 2360 ml Output Total 2750 ml Balance -390 ml Capillary Refill : Less Than 3 Seconds General Appearance: No Apparent Distress, WD/WN HEENT: PERRL/EOMI; No Scleral Icterus (L), No Scleral Icterus (R) Neck: Non Tender, Supple Respiratory: Lungs Clear, No Accessory Muscle Use, No Respiratory Distress Cardiovascular: Regular Rate, Rhythm, No Murmur Gastrointestinal: non tender, soft, tenderness (mild tenderness to palpation around ileostomy site), other (ileostomy bag in place, three incision sites on left abdomen that are clean, dry and intact) Extremity: No Calf Tenderness, No Pedal Edema Neurologic/Psychiatric: Alert, Oriented x3 Skin: Normal Color, Warm/Dry Results Lab Laboratory Tests 07/25/23 13:06: Glucometer 206H 07/25/23 16:00: Glucometer 141H 07/25/23 19:57: Glucometer 128H 07/26/23 06:17: Glucometer 140H Microbiology 07/24/23 MRSA Screen - Final, Complete MRSA not isolated Assessment/Plan Assessment/Plan Assessment/Plan Parastomal Hernia - repaired in OR 07/25 Ileostomy Hx of Crohns Disease - denies any recent flairs Afib - controlled after ablation T2DM Hypokalemia * Advance diet to clears, once tolerated can increase diet to soft foods * NG tube was removed on 07/23 * Parastomal hernia repair yesterday (07/25) * Monitor electrolytes and replace as needed * Monitor ileostomy output DANN DESIR DO 07/26/23 1025: Subjective Time Seen by a Provider: 09:49 Subjective/Events-last exam Pt seen and examined, he has no complaints and would like to eat. Pain controlled with meds. Review of Systems General: No Chills, No Fatigue Pulmonary: No Dyspnea; Cough (minimally) Cardiovascular: No: Chest Pain, Palpitations Gastrointestinal: No: Nausea, Vomiting, Abdominal Pain Objective Exam General Appearance: No Apparent Distress, WD/WN Respiratory: Lungs Clear, Normal Breath Sounds, No Accessory Muscle Use, No Respiratory Distress Cardiovascular: Regular Rate, Rhythm, No Murmur Gastrointestinal: soft, tenderness (mild tenderness to palpation at incisions), other (ileostomy bag in place, three incision sites on left abdomen that are clean, dry and intact. Ostomy site looks completely flat) Extremity: No Calf Tenderness, No Pedal Edema Neurologic/Psychiatric: Alert, Oriented x3 Assessment/Plan Assessment/Plan Assessment/Plan S/P Parastomal Hernia repair 07/25 Ileostomy Hx of Crohns Disease - denies any recent flairs Afib - controlled after ablation T2DM Hypokalemia * Advance diet to clears, once tolerated can increase diet to soft foods * On oral meds, can probably go home if he tolerates diet. Supervisory-Addendum Brief Verification & Attestation Participated in pt care: history, MDM, physical Personally performed: exam, history, MDM, supervision of care Care discussed with: Medical Student Procedures: n/a Verification and Attestation of Medical Student E/M Service A medical student performed and documented this service. I then reviewed and verified all information documented by the medical student and made modifications to such information, when appropriate. I personally performed a physical exam, medical decision making and then discussed any differences between the notes and made revisions as necessary to create one note. Dann Desir , 07/26/23 , 10:25 NENA DOUGLAS Jul 26, 2023 07:54 DANN DESIR DO Jul 26, 2023 10:25
[2023-07-26 08:03] VITALS: BP 146/76
[2023-07-26 09:19] LABS: CALCIUM 8.2 MG/DL (8.5-10.1); CREATININE SERUM 0.81 MG/DL (0.60-1.30); MAGNESIUM 2.1 MG/DL (1.6-2.4); POTASSIUM 3.9 MMOL/L (3.6-5.0)
[2023-07-26] MEDS: MAGNESIUM 1 GM/100 ML IVPB 100 ML IV SCH (09:22)
[2023-07-26] MEDS: POTASSIUM BICARB 20 MEQ effervescent TABLET PO SCH (09:23)
[2023-07-26] MEDS: POTASSIUM CHLORIDE 20 MEQ TABLET PO SCH (09:23)
[2023-07-26] MEDS: POTASSIUM CL 10MEQ/50ML IVPB 50 ML IV SCH ×3 (09:28→10:42)
[2023-07-26] MEDS ORDERED: ACHD5005 PO (10:26)
--- NOTE | 2023-07-26 10:27 | Discharge Inst-Surgical ---
Discharge Inst-Surgical Depart Medication/Instructions New, Converted or Re-Newed RX: Transmitted to Pharmacy Patient Instructions Follow up Appt: Make appointment for 1 week. [phone] Instructions: No lifting greater than 20 pounds. No strenuous activity. May shower in 24 hours, no tub bath or soaking. Use incentive spirometer at home as directed. No Smoking Skin/Wound Care: May remove bandages in am. You need to leave the Dermabond on incision it will fall off on it's own. Symptoms to Report: Appetite Changes, Extremity Discoloration, Numbness/Tingling, Swelling Increased, Bleeding Excessive, Eyesight Changes, Pain Increased, Urine Color Change, Constipation(Persistent), Fever over 101 degree F, Pain/Pressure in chest, Urinating Difficulty, Cough Up/Vomit Blood, Heart Beat Irreg/Pounding, Pain/Pressure in jaw, Cramps in feet or legs, Lightheadedness, Pain/Pressure in shoulder, Diarrhea(Persistent), Memory Changes Suddenly, Questions/Concerns, Weight gain consecutive days, Dizziness/Fainting, Nausea/Vomiting, Shortness of Breath, Weight gain over 2 pounds If questions or concerns contact your physician Or seek help at emergency department. Activity Activity as Tolerated: Yes Activity Instructions: Avoid Stress to Incision Driving Instructions: No Driving/Refer to Dr. Davis Discharge Diet: No Restrictions Diet After 24 Hours: Clear Liquid if Nauseous If Any Problems/Questions/Issu: Contact Your Physician, Go to Emergency Room Skin/Wound Care Infection Signs and Symptoms: Increased Redness, Foul Odor of Wound, Increased Drainage, Skin Itchy or Has a Rash, Increased Swelling, Temperature Above 101 F Bathing Instructions: Shower Stitches/[place]/Dermabond Dis: GAYLA Saleem DO Jul 26, 2023 10:27
[2023-07-26 12:11] VITALS: BP 143/83
--- NOTE | 2023-07-26 13:40 | Anesthesia-General Post-Op ---
General Patient Condition Mental Status/LOC: Same as Preop Cardiovascular: Satisfactory Nausea/Vomiting: Absent Respiratory: Satisfactory Pain: Controlled Complications: Absent Post Op Complications Complications None Follow Up Care/Instructions Patient Instructions None needed. Anesthesia/Patient Condition Patient Condition Patient is doing well, no complaints, stable vital signs, no apparent adverse anesthesia problems. He states he is being discharged to home today. No complications reported per nursing. NI SOLORZANO DO Jul 26, 2023 13:40
[2023-07-26 15:36] VITALS: BP 143/83
--- NOTE | 2023-07-26 15:45 | Discharge Summary ---
Discharge Summary Hospital Course Problems/Dx: (1) Small bowel obstruction Status: Acute (2) Parastomal hernia with obstruction and without gangrene Status: Acute (3) Crohn disease Status: Chronic (4) T2DM (type 2 diabetes mellitus) Status: Chronic (5) Obesity Status: Chronic Hospital Course Date of Admission: Jul 21, 2023 at 21:08 Admission Diagnosis : Small bowel obstruction Family Physician/Provider: Vincenzo Bain MD Date of Discharge: 07/26/23 Discharge Diagnosis: Small bowel obstruction, incarcerated parastomal hernia, Crohn's disease Hospital Course: Haider Alarcon is a 62 year old male with H Crohn's disease, ileostomy, who was admitted with small bowel obstruction. Surgery was consulted and assisted with his care. CT imaging showed transition point at the ostomy site with a parastomal hernia. He underwent surgery with mesh repair on 07/25. His symptoms improved. He did well postoperatively and his diet was able to be advanced. He was discharged home in stable condition. He should follow up with his PCP and Surgery as scheduled. Labs and Pending Lab Test: Laboratory Tests 07/25/23 16:00: Glucometer 141H 07/25/23 19:57: Glucometer 128H 07/26/23 06:17: Glucometer 140H 07/26/23 08:40: Sodium Level 142, Potassium Level 3.9, Chloride Level 113H, Carbon Dioxide Level 15L, Anion Gap 14, Blood Urea Nitrogen 8, Creatinine 0.81, Estimat Glomerular Filtration Rate 101, BUN/Creatinine Ratio 10, Glucose Level 140H, Calcium Level 8.2L, Magnesium Level 2.1 07/26/23 11:35: Glucometer 210H Microbiology 07/24/23 MRSA Screen - Final, Complete MRSA not isolated Home Meds Active Hydrocodone-Acetamin 5-325 mg (Hydrocodone/Acetaminophen) 5 Mg-325 Mg Tablet 1 Tab PO Q8H PRN Reported Metformin HCl 1,000 Mg Tablet 1,000 Mg PO BID Glimepiride 4 Mg Tablet 4 Mg PO BID Rosuvastatin Calcium 20 Mg Tablet 20 Mg PO HS Pantoprazole Sodium 40 Mg Tablet.dr 40 Mg PO DAILY Farxiga (Dapagliflozin Propanediol) 10 Mg Tablet 10 Mg PO DAILY Ozempic (Semaglutide) 1 Mg/0.75 Ml (4 Mg/3 Ml) Pen.injctr 1 Mg SQ SATURDAY Assessment/Pt Instructions see instructions Discharge Planning: >30 minutes discharge planning Discharge Instructions Discharge Diet: No Restrictions Activity as Tolerated: Yes Consultations Surgery Discharge Physical Examination Vital Signs Vital Signs Date Time Temp Pulse Resp B/P (MAP) Pulse Ox O2 Delivery O2 Flow Rate FiO2 07/26/23 15:36 37.4 92 16 143/83 94 Room Air 2.00 General Appearance: No Apparent Distress, Obese Respiratory: Lungs Clear, No Respiratory Distress Cardiovascular: Regular Rate, Rhythm, No Murmur Gastrointestinal: Normal Bowel Sounds, Soft Extremity: Normal Inspection, No Pedal Edema Neurologic/Psychiatric: Alert, Normal Mood/Affect Allergies: Coded Allergies: No Known Drug Allergies (Unverified , 04/07/18) Copy Copies To 1: VINCENZO BAIN MD Discharge Summary Date of Admission Jul 21, 2023 at 21:08 Date of Discharge Jul 26, 2023 at 14:57 Discharge Date: Jul 26, 2023 Discharge Time: 14:57 Admission Diagnosis Small bowel obstruction Consults/Procedures Consulations Surgery Procedures Parastomal hernia repair Discharge Diagnosis Small bowel obstruction Parastomal hernia Ileostomy Crohn's disease T2DM HLD Obesity (1) Small bowel obstruction Status: Acute (2) Parastomal hernia with obstruction and without gangrene Status: Acute (3) Crohn disease Status: Chronic (4) T2DM (type 2 diabetes mellitus) Status: Chronic (5) Obesity Status: Chronic LUCAS RAZO MD Jul 26, 2023 15:45
== END 2023-07-26 14:57 | disposition home or self-care (01) | DRG 354 ==
LOC: EDUNIT# 17:12 → ER 17:14 → 4TH 21:08
PROVIDERS: ADMIT Family Medicine; ATTEND Internal Medicine
PROC: 8E0W0CZ Robotic Assisted Procedure of Trunk Region, Open Approach (ICD-10-PCS; 2023-07-25)
PROC: 0WUF0JZ Supplement Abdominal Wall with Synthetic Substitute, Open Approach (ICD-10-PCS; principal; 2023-07-25 08:42)
DX: K43.3 Parastomal hernia with obstruction, without gangrene (principal); K50.90 Crohn's disease, unspecified, without complications; E66.9 Obesity, unspecified; Z93.2 Ileostomy status; E78.5 Hyperlipidemia, unspecified; F17.210 Nicotine dependence, cigarettes, uncomplicated; I48.91 Unspecified atrial fibrillation; E11.40 Type 2 diabetes mellitus with diabetic neuropathy, unspecified; Z85.828 Personal history of other malignant neoplasm of skin; Z79.84 Long term (current) use of oral hypoglycemic drugs; Z79.899 Other long term (current) drug therapy; F17.200 Nicotine dependence, unspecified, uncomplicated; E87.6 Hypokalemia; Z68.32 Body mass index [BMI] 32.0-32.9, adult; Z11.52 Encounter for screening for COVID-19
CPT/HCPCS: 36415; 43762; 71045; 74177; 80048; 80053; 81000; 82010; 82947; 83690; 83735; 85007; 85025; 85027; 87081; 87636; 96361; 96374